=== PATIENT | female | born 1960 | race African-American/Black ===

== ENCOUNTER 2016-06-13 12:05 | Inpatient (IN) | payer OTHER ==
[2016-06-13 12:56] VITALS: BMI 23.1
--- NOTE | 2016-06-13 15:44 | HP ---
COWS - Scale Resting Pulse: 0= [place] 80 or Below Sweatin=Flushed/Facial Moisture Restless Observation: 1= Difficult to Sit Still Pupil Size: 2= Moderately Dilated Bone or Joint Aches: 2= Severe Diffuse Aches Runny Nose/ Eye Tearin= Runny Nose/Eyes GI Upset > 30mins: 2= Nausea/Diarrhea Tremor Observation: 2= Slight Tremor Visible Yawning Observation: 1= 1-2x During Session Anxiety or Irritability: 2=Irritable/Anxious Goose Flesh Skin: 3=Piloerection COWS Score: 19 CIWA Score - CIWA Score Nausea/Vomitin Muscle Tremors: 4-Moderate,w/Arms Extend Anxiety: 4-Mod. Anxious/Guarded Agitation: 4-Moderately Restless Paroxysmal Sweats: 3 Orientation: 0-Oriented Tacttile Disturbances: 0-None Auditory Disturbances: 0-None Visual Disturbances: 0-None Headache: 0-None Present CIWA-Ar Total Score: 18 Admission ROS BHS - HPI Chief Complaint: withdrawal sx. Allergies/Adverse Reactions: Allergies Allergy/AdvReac Type Severity Reaction Status Date / Time sulfamethoxazole Allergy Mild Hives Verified 06/13/16 14:33 [From Bactrim] trimethoprim [From Bactrim] Allergy Mild Hives Verified 06/13/16 14:33 History of Present Illness: 56 y/o woman with a long hx. of heroin & alcohol dependence is admitted for detox.Pt. has been in previous detox & rehab reports 2 yrs. drug free & sober. Exam Limitations: No Limitations - Ebola screening Have you traveled outside of the country in the last 21 days: No Have you had contact with anyone from an Ebola affected area: No Have you been sick,other than usual withdrawal symptoms: No Do you have a fever: No - Review of Systems Constitutional: Diaphoresis EENT: reports: Nose Congestion Respiratory: reports: No Symptoms reported Cardiac: reports: No Symptoms Reported GI: reports: Nausea, Abdominal cramping : reports: No Symptoms Reported Musculoskeletal: reports: Back Pain, Joint Pain, Muscle Pain Integumentary: reports: Sweating Neuro: reports: Tremors Endocrine: reports: No Symptoms Reported Hematology: reports: No Symptoms Reported Psychiatric: reports: No Sypmtoms Reported Other Systems: Reviewed and Negative Patient History - Patient Medical History Hx Anemia: No Hx Asthma: No Hx Chronic Obstructive Pulmonary Disease (COPD): No Hx Cancer: No Hx Cardiac Disorders: No Hx Congestive Heart Failure: No Hx Hypertension: Yes Hx Hypercholesterolemia: No Hx Pacemaker: No HX Cerebrovascular Accident: No Hx Seizures: No Hx Dementia: No Hx Diabetes: Yes (BGM 94 Mg/Dl) Hx Gastrointestinal Disorders: No Hx Liver Disease: No Hx Genitourinary Disorders: No Hx Sexually Transmitted Disorders: No Hx Renal Disease (ESRD): No Hx Thyroid Disease: No Hx Human Immunodeficiency Virus (HIV): No Hx Hepatitis C: No Hx Depression: No Hx Suicide Attempt: No Hx Bipolar Disorder: Yes (ON MED) Hx Schizophrenia: No - Patient Surgical History Past Surgical History: Yes Hx Neurologic Surgery: No Hx Cataract Extraction: No Hx Cardiac Surgery: No Hx Lung Surgery: No Hx Breast Surgery: No Hx Breast Biopsy: No Hx Abdominal Surgery: No Hx Appendectomy: No Hx Cholecystectomy: No Hx Genitourinary Surgery: No Hx Section: Yes (x2) Hx Orthopedic Surgery: No Anesthesia Reaction: No - PPD History Previous Implant?: Yes Documented Results: Positive w/proof Implanted On Prior [facility] Admission?: No Date: 09/12/15 Results: 7mm PPD to be Administered?: No - Reproductive History Patient is a Female of Child Bearing Age (11 -55 yrs old): No Patient : No - Smoking Cessation Smoking history: Current every day smoker Have you smoked in the past 12 months: Yes Aproximately how many cigarettes per day: 15 Cigars Per Day: 0 Hx Chewing Tobacco Use: No Initiated information on smoking cessation: Yes 'Breaking Loose' booklet given: 06/13/16 - Substance & Tx. History Hx Alcohol Use: Yes Hx Substance Use: Yes Substance Use Type: Alcohol, Cocaine, Heroin Hx Substance Use Treatment: Yes (Detox & Rehab) - Substances Abused Heroin Route: Inhalation Frequency: Daily Amount used: 10 bags Age of first use: 24 Date of Last Use: 06/12/16 Cocaine Route: Smoking Frequency: Daily Amount used: $ 100 Age of first use: 19 Date of Last Use: 06/12/16 Marijuana/Hashish Route: Smoking Frequency: 1-2 times per week Amount used: $ 20 Age of first use: 14 Date of Last Use: 06/10/16 PCP Route: Smoking Frequency: 1-3 times last 30 days Amount used: $ 20 Age of first use: 19 Date of Last Use: 06/10/16 Alcohol Route: Oral Frequency: Daily Amount used: 2 to 3 six packs Age of first use: 13 Date of Last Use: 06/13/16 Family Disease History - Family Disease History Family Disease History: Diabetes: Father, Mother, Sister Admission Physical Exam [facility] - Vital Signs Vital Signs: Vital Signs - 24 hr 06/13/16 12:54 Temperature 97.2 F L Pulse Rate 76 Respiratory 20 Rate Blood Pressure 126/96 - Physical General Appearance: Yes: Tremorous, Irritable, Sweating, Anxious HEENTM: Yes: Nasal Congestion, Rhinorrhea Respiratory: Yes: Chest Non-Tender, Lungs Clear, Normal Breath Sounds Neck: Yes: Supple Breast: Yes: Breast Exam Deferred Cardiology: Yes: Regular Rhythm, Regular Rate, S1, S2 Abdominal: Yes: Normal Bowel Sounds, Non Tender, Soft Genitourinary: Yes: Within Normal Limits Musculoskeletal: Yes: Within Normal Limits Extremities: Yes: Tremors Neurological: Yes: Fully Oriented, Alert Integumentary: Yes: Diaphoresis Lymphatic: Yes: Within Normal Limits - Diagnostic (1) Opioid dependence with withdrawal Current Visit: Yes Status: Acute (2) Alcohol dependence with uncomplicated withdrawal Current Visit: Yes Status: Acute (3) HTN (hypertension) Current Visit: Yes Status: Acute Qualifiers: Hypertension type: essential hypertension Qualified Code(s): I10 - Essential (primary) hypertension (4) Cannabis dependence, uncomplicated Current Visit: Yes Status: Acute Cleared for Admission [facility] - Detox or Rehab [facility] Level of Care: Medically Managed Detox Regimen/Protocol: Methadone/Valium [facility] Breath Alcohol Content Breath Alcohol Content: 0 Urine Pregancy Test - Result Urine Test Results: Negative- NO Line Present Urine Drug Screen - Results Drug Screen Negative: No Urine Drug Screen Results: THC-Marijuana, TOM-Cocaine, OPI-Opiates, PCP- Phencyclidine, OXY-Oxycodone
[2016-06-13] MEDS ORDERED: MAGNESIUM CITRATE 300 ML BOTTLE PO PRN (15:52)
[2016-06-13] MEDS ORDERED: ACETAMINOPHEN 325 MG TABLET (FP) PO PRN (15:52)
[2016-06-13] MEDS ORDERED: MAGNESIUM HYDROX 2400MG/30ML ORAL SUSPENSION 30 ML CUP PO PRN (15:52)
[2016-06-13] MEDS ORDERED: METHADONE HCL 10 MG TABLET (FOR DETOX USE ONLY) PO ONE ×2 (15:52→23:00)
[2016-06-13] MEDS ORDERED: LOPERAMIDE HCL 2 MG CAPSULE PO PRN (15:52)
[2016-06-13] MEDS ORDERED: hydrOXYzine PAMOATE 50 MG CAPSULE (FP) PO PRN (15:52)
[2016-06-13] MEDS ORDERED: MENTHOL/PHENOL 1 EACH UD MM PRN (15:52)
[2016-06-13] MEDS ORDERED: P-EPHED 60MG/TRIPROLIDI 2.5MG TABLET PO PRN (15:52)
[2016-06-13] MEDS ORDERED: diazePAM 5 MG TABLET PO PRN (15:52)
[2016-06-13] MEDS ORDERED: diazePAM 5 MG TABLET PO ONE (15:52)
[2016-06-13] MEDS ORDERED: NICOTINE POLACRILEX 2 MG GUM BC PRN (15:52)
[2016-06-13] MEDS ORDERED: guaiFENesin/D-METHORPHAN HB 10 ML UNIT-DOSE CUPS PO PRN (15:52)
[2016-06-13] MEDS ORDERED: IBUPROFEN 400 MG TABLET (FP) PO PRN (15:52)
[2016-06-13] MEDS ORDERED: MAG HYDROX/AL HYDROX/SIMETH 30 ML UNIT-DOSE CUP PO PRN (15:52)
[2016-06-13] MEDS: NICOTINE 21 MG/24 HOURS TOPICAL PATCH TD SCH (16:47)
[2016-06-13] MEDS: THIAMINE HCL 100 MG TABLET (FP) PO SCH (22:19)
[2016-06-13] MEDS: diphenhydrAMINE HCL 50 MG CAPSULE PO PRN (22:19)
[2016-06-13] MEDS: diazePAM 5 MG TABLET PO SCH (22:20)
[2016-06-13] MEDS: amLODIPine BESYLATE 10 MG TABLET (FP) PO SCH (22:57)
[2016-06-14] MEDS: diazePAM 5 MG TABLET PO SCH (05:26)
[2016-06-14] MEDS ORDERED: cloNIDine HCL 0.1 MG TABLET PO ONE (06:15)
[2016-06-14] MEDS ORDERED: METHADONE HCL 10 MG TABLET (FOR DETOX USE ONLY) PO SCH (10:00)
[2016-06-14] MEDS ORDERED: amLODIPine BESYLATE 5 MG TABLET (FP) PO SCH (10:00)
[2016-06-14 10:04] LABS: MCH 29.4 pg (25.7-33.7); MCHC 32.9 g/dl (32.0-36.0); MEAN CELL VOLUME 89.3 fl (80-96); MEAN PLT VOLUME 10.5 fl (7.5-11.1); PLATELET COUNT 250 K/MM3 (134-434); RDW 14.6 % (11.6-15.6); WHITE BLOOD COUNT 6.6 K/mm3 (4.0-10.0)
--- NOTE | 2016-06-14 10:27 | CONSULT ---
[facility] Psychiatric Consult - Data Date of interview: 06/14/16 Admission source: [facility] Identifying data: This is 56 years old female with Bipolar Disorder history , history of psychiatric hospitalizations, intoxicated with: Alcohol, Opioids, PCP, Cocaine and Nicotine Substance Abuse History: - Smoking Cessation. Smoking history: Current every day smoker. Have you smoked in the past 12 months: Yes. Aproximately how many cigarettes per day: 15. Cigars Per Day: 0. Hx Chewing Tobacco Use: No. Initiated information on smoking cessation: Yes. 'Breaking Loose' booklet given : 06/13/16. - Substance & Tx. History. Hx Alcohol Use: Yes. Hx Substance Use : Yes. Substance Use Type: Alcohol, Cocaine, Heroin. Hx Substance Use Treatment: Yes (Detox & Rehab). - Substances Abused. Heroin. Route: Inhalation. Frequency: Daily. Amount used: 10 bags. Age of first use: 24. Date of Last Use: 06/12/16. Cocaine. Route: Smoking. Frequency: Daily. Amount used: $ 100. Age of first use: 19. Date of Last Use: 06/12/16. Marijuana/Hashish. Route: Smoking. Frequency: 1-2 times per week. Amount used : $ 20. Age of first use: 14. Date of Last Use: 06/10/16. PCP. Route: Smoking. Frequency: 1-3 times last 30 days. Amount used: $ 20. Age of first use: 19. Date of Last Use: 06/10/16. Alcohol. Route: Oral. Frequency: Daily. Amount used: 2 to 3 six packs. Age of first use: 13. Date of Last Use : 06/13/16 Medical History: HTN, DM-2,L LBP, Psychiatric History: Patient reports to carry Bipolar disorder with the most recent psychiatric admission on 2014 at [facility] for safety, reports takinmg prior to admission: Seroquel 300mg po bid. Gabapentin 300mg po tid Physical/Sexual Abuse/Trauma History: Denies Additional Comment: Seroquel 300mg po bid. Gabapentin 300mg po tid Mental Status Exam - Mental Status Exam Alert and Oriented to: Person Cognitive Function: Fair Patient Appearance: Unkempt Mood: Sad Affect: Normal Range Patient Behavior: Fatigued Speech Pattern: Appropriate Voice Loudness: Mildly Soft/Quiet Thought Process: Goal Oriented Thought Disorder: Being Controlled Hallucinations: Denies Suicidal Ideation: Denies Homicidal Ideation: Denies Insight/Judgement: Fair Sleep: Difficulty falling asleep Appetite: Weight gain Muscle strength/Tone: Mild Hypotonicity Gait/Station: Shuffling Additional Comments: Seroquel 300mg po bid. Gabapentin 300mg po tid Psychiatric Findings - Problem List ([place] 1, 2,3) (1) Alcohol dependence with uncomplicated withdrawal Current Visit: Yes Status: Acute (2) Cannabis dependence, uncomplicated Current Visit: Yes Status: Acute (3) Opioid dependence with withdrawal Current Visit: Yes Status: Acute (4) Cocaine dependence Current Visit: No Status: Acute (5) Alcohol dependence Current Visit: No Status: Chronic (6) Bipolar II disorder Current Visit: No Status: Chronic (7) Cocaine abuse Current Visit: No Status: Chronic (8) Nicotine dependence Current Visit: No Status: Chronic Qualifiers: Nicotine product type: cigarettes Substance use status: uncomplicated Qualified Code(s): F17.210 - Nicotine dependence, cigarettes, uncomplicated (9) PCP (phencyclidine) abuse Current Visit: No Status: Chronic (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 Gabapentin 300mg po tid
[2016-06-14 10:28] LABS: ALBUMIN 3.6 g/dl (3.4-5.0); BILIRUBIN,TOTAL 0.2 mg/dL (0.2-1.0); CALCIUM 9.3 mg/dL (8.5-10.1); COCKROFT - GAULT 59.7975; CREATININE 1.1 mg/dL (0.55-1.02); TOT PROT 6.7 g/dl (6.4-8.2)
[2016-06-14] MEDS: PRENATAL VITAMINS W/ FOLIC ACID TABLET (FP) PO SCH (10:51)
[2016-06-14] MEDS: amLODIPine BESYLATE 10 MG TABLET (FP) PO SCH (10:51)
[2016-06-14 10:52] LABS: HIV 1 & 2 AB NEGATIVE; HIV 1 AGp24 NEGATIVE
[2016-06-14] MEDS: NICOTINE 21 MG/24 HOURS TOPICAL PATCH TD SCH (10:52)
--- NOTE | 2016-06-14 11:11 | EKG ---
Test Reason : Blood Pressure : / mmHG Vent. Rate : 064 BPM Atrial Rate : 064 BPM P-R Int : 160 ms QRS Dur : 082 ms QT Int : 400 ms P-R-T Axes : 062 -03 002 degrees QTc Int : 412 ms NORMAL SINUS RHYTHM NONSPECIFIC T WAVE ABNORMALITY ABNORMAL ECG NO PREVIOUS ECGS AVAILABLE Confirmed by SAUL NAYLOR MD ([id number]) on 06/14/2016 11:11:18 AM Referred By: Keith Rodgers Confirmed By:SUAL NAYLOR MD
--- NOTE | 2016-06-14 11:41 | PN ---
[facility] CIWA - CIWA Score Nausea/Vomitin-No Nausea/No Vomiting Muscle Tremors: 4-Moderate,w/Arms Extend Anxiety: 3 Agitation: 4-Moderately Restless Paroxysmal Sweats: 3 Orientation: 0-Oriented Tacttile Disturbances: 0-None Auditory Disturbances: 0-None Visual Disturbances: 0-None Headache: 0-None Present CIWA-Ar Total Score: 14 BHS COWS - Scale Resting Pulse: 0= SC 80 or Below Sweatin=Flushed/Facial Moisture Restless Observation: 1= Difficult to Sit Still Pupil Size: 0= Normal to Room Light Bone or Joint Aches: 2= Severe Diffuse Aches Runny Nose/ Eye Tearin= Nasal Congestion GI Upset > 30mins: 1= Stomach Cramp Tremor Observation of Outstretched Hands: 2= Slight Tremor Visible Yawning Observation: 2= >3x During Session Anxiety or Irritability: 2=Irritable/Anxious Goose Flesh Skin: 3=Piloerection COWS Score: 16 S Progress Note (SOAP) Subjective: I want librium instead of valium i still feel sick and shaky sweats interrupted sleep agitation anxiety headache body aches Objective: 06/14/16 11:39 Vital Signs Temperature 97.5 F L 06/14/16 09:41 Pulse Rate 62 06/14/16 09:41 Respiratory Rate 16 06/14/16 09:41 Blood Pressure 125/83 06/14/16 09:41 O2 Sat by Pulse Oximetry (%) Laboratory Tests 06/13/16 06/13/16 06/14/16 14:45 19:00 07:00 WBC RBC Hgb Hct MCV MCHC RDW Plt Count MPV Sodium Potassium Chloride Carbon Dioxide Anion Gap BUN Creatinine Creat Clearance w eGFR POC Glucometer 94 Random Glucose Calcium Total Bilirubin AST ALT Alkaline Phosphatase Total Protein Albumin Urine Color Yellow Urine Appearance Clear Urine pH 5.0 Ur Specific [place] 1.021 Urine Protein Negative Urine Glucose (UA) Negative Urine Ketones Negative Urine Blood Negative Urine Nitrite Negative Urine Bilirubin Negative Urine Urobilinogen Negative Ur Leukocyte Esterase Negative RPR Titer HIV 1&2 Antibody Screen Negative HIV P24 Antigen Negative 06/14/16 06/14/16 06/14/16 07:00 07:00 07:00 WBC 6.6 RBC 5.06 Hgb 14.9 D Hct 45.2 MCV 89.3 MCHC 32.9 RDW 14.6 Plt Count 250 MPV 10.5 Sodium 141 Potassium 3.6 Chloride 107 Carbon Dioxide 26 Anion Gap 8 BUN 12 D Creatinine 1.1 H Creat Clearance w eGFR 51.20 POC Glucometer Random Glucose 91 Calcium 9.3 Total Bilirubin 0.2 D AST 11 L D ALT 22 D Alkaline Phosphatase 140 H Total Protein 6.7 Albumin 3.6 Urine Color Urine Appearance Urine pH Ur Specific [place] Urine Protein Urine Glucose (UA) Urine Ketones Urine Blood Urine Nitrite Urine Bilirubin Urine Urobilinogen Ur Leukocyte Esterase RPR Titer Nonreactive HIV 1&2 Antibody Screen HIV P24 Antigen awake/alert ambulating no acute distress Assessment: 06/14/16 11:39 withdrawal sx Plan: continue detox increase fluids valium switched to librium as per pt request ensure plus bid labs pending
--- NOTE | 2016-06-14 11:43 | PN ---
BHS Progress Note Note: pt states she is no longer a diabetic. no longer taking medication.
[2016-06-14] MEDS: chlordiazePOXIDE HCL 25 MG CAPSULE PO SCH ×3 (12:09→22:09)
[2016-06-14] MEDS: CYCLOBENZAPRINE HCL 10 MG TABLET (FP) PO PRN ×2 (12:09→22:09)
[2016-06-14] MEDS: GABAPENTIN 300 MG CAPSULE (FP) PO SCH ×2 (14:10→22:09)
[2016-06-14] MEDS: QUEtiapine FUMARATE 300 MG TABLET PO SCH ×2 (14:10→22:09)
[2016-06-14] MEDS: THIAMINE HCL 100 MG TABLET (FP) PO SCH (22:09)
[2016-06-15] MEDS: GABAPENTIN 300 MG CAPSULE (FP) PO SCH ×3 (06:22→22:56)
[2016-06-15] MEDS: chlordiazePOXIDE HCL 25 MG CAPSULE PO SCH ×2 (06:22→10:40)
[2016-06-15] MEDS ORDERED: diazePAM 5 MG TABLET PO SCH (10:00)
[2016-06-15] MEDS: METHADONE HCL 5 MG TABLET (FOR DETOX USE ONLY) PO SCH (10:40)
[2016-06-15] MEDS: PRENATAL VITAMINS W/ FOLIC ACID TABLET (FP) PO SCH (10:40)
[2016-06-15] MEDS: QUEtiapine FUMARATE 300 MG TABLET PO SCH ×2 (10:40→22:56)
[2016-06-15] MEDS: amLODIPine BESYLATE 10 MG TABLET (FP) PO SCH (10:40)
[2016-06-15] MEDS: NICOTINE 21 MG/24 HOURS TOPICAL PATCH TD SCH (10:40)
[2016-06-15] MEDS ORDERED: LIDOCAINE 5% TOPICAL PATCH TP ONE (11:04)
--- NOTE | 2016-06-15 11:04 | PN ---
S CIWA - CIWA Score Nausea/Vomitin Muscle Tremors: 2 Anxiety: 3 Agitation: 2 Paroxysmal Sweats: 3 Orientation: 0-Oriented Tacttile Disturbances: 2-Mild Itch/Numbness/Burn Auditory Disturbances: 0-None Visual Disturbances: 0-None Headache: 0-None Present CIWA-Ar Total Score: 14 S COWS - Scale Resting Pulse: 0= SC 80 or Below Sweatin=Flushed/Facial Moisture Restless Observation: 1= Difficult to Sit Still Pupil Size: 1= Pupils >than Normal Bone or Joint Aches: 2= Severe Diffuse Aches Runny Nose/ Eye Tearin= Nasal Congestion GI Upset > 30mins: 1= Stomach Cramp Tremor Observation of Outstretched Hands: 1= Tremor [place], Not Seen Yawning Observation: 0= None Anxiety or Irritability: 2=Irritable/Anxious Goose Flesh Skin: 0=Smooth Skin COWS Score: 11 S Progress Note (SOAP) Subjective: interrupted sleep, sweats, shakes, lbp Objective: 06/15/16 11:02 Vital Signs Temperature 97.1 F L 06/15/16 09:55 Pulse Rate 58 L 06/15/16 09:55 Respiratory Rate 16 06/15/16 09:55 Blood Pressure 116/69 06/15/16 09:55 O2 Sat by Pulse Oximetry (%) Laboratory Tests 06/13/16 06/13/16 06/14/16 14:45 19:00 07:00 WBC RBC Hgb Hct MCV MCHC RDW Plt Count MPV Sodium Potassium Chloride Carbon Dioxide Anion Gap BUN Creatinine Creat Clearance w eGFR POC Glucometer 94 Random Glucose Calcium Total Bilirubin AST ALT Alkaline Phosphatase Total Protein Albumin Urine Color Yellow Urine Appearance Clear Urine pH 5.0 Ur Specific [place] 1.021 Urine Protein Negative Urine Glucose (UA) Negative Urine Ketones Negative Urine Blood Negative Urine Nitrite Negative Urine Bilirubin Negative Urine Urobilinogen Negative Ur Leukocyte Esterase Negative RPR Titer HIV 1&2 Antibody Screen Negative HIV P24 Antigen Negative 06/14/16 06/14/16 06/14/16 07:00 07:00 07:00 WBC 6.6 RBC 5.06 Hgb 14.9 D Hct 45.2 MCV 89.3 MCHC 32.9 RDW 14.6 Plt Count 250 MPV 10.5 Sodium 141 Potassium 3.6 Chloride 107 Carbon Dioxide 26 Anion Gap 8 BUN 12 D Creatinine 1.1 H Creat Clearance w eGFR 51.20 POC Glucometer Random Glucose 91 Calcium 9.3 Total Bilirubin 0.2 D AST 11 L D ALT 22 D Alkaline Phosphatase 140 H Total Protein 6.7 Albumin 3.6 Urine Color Urine Appearance Urine pH Ur Specific [place] Urine Protein Urine Glucose (UA) Urine Ketones Urine Blood Urine Nitrite Urine Bilirubin Urine Urobilinogen Ur Leukocyte Esterase RPR Titer Nonreactive HIV 1&2 Antibody Screen HIV P24 Antigen pt aox3 in nad ambulating Assessment: 06/15/16 11:02 withdrawal sx's lbp Plan: cont. detox increase fluids lidocaine patch clonidine 0.1mg bid x 2 d
[2016-06-15] MEDS ORDERED: cloNIDine HCL 0.1 MG TABLET PO SCH (22:00)
[2016-06-15] MEDS: CYCLOBENZAPRINE HCL 10 MG TABLET (FP) PO PRN (22:56)
[2016-06-15] MEDS: chlordiazePOXIDE HCL 25 MG CAPSULE PO PRN (22:56)
[2016-06-15] MEDS: THIAMINE HCL 100 MG TABLET (FP) PO SCH (22:56)
[2016-06-16] MEDS: diphenhydrAMINE HCL 50 MG CAPSULE PO PRN (02:18)
[2016-06-16] MEDS: chlordiazePOXIDE HCL 25 MG CAPSULE PO PRN (02:18)
[2016-06-16] MEDS: chlordiazePOXIDE 5 MG CAPSULE PO SCH ×2 (05:37→10:36)
[2016-06-16] MEDS: GABAPENTIN 300 MG CAPSULE (FP) PO SCH ×3 (05:37→22:23)
[2016-06-16] MEDS: QUEtiapine FUMARATE 300 MG TABLET PO SCH ×2 (10:36→22:23)
[2016-06-16] MEDS: amLODIPine BESYLATE 10 MG TABLET (FP) PO SCH (10:36)
[2016-06-16] MEDS: METHADONE HCL 5 MG TABLET (FOR DETOX USE ONLY) PO SCH (10:36)
[2016-06-16] MEDS: PRENATAL VITAMINS W/ FOLIC ACID TABLET (FP) PO SCH (10:36)
[2016-06-16] MEDS: LIDOCAINE 5% TOPICAL PATCH TP SCH (10:37)
[2016-06-16] MEDS: NICOTINE 21 MG/24 HOURS TOPICAL PATCH TD SCH (10:38)
--- NOTE | 2016-06-16 11:27 | PN ---
BHS Progress Note (SOAP) Subjective: sweats irritable agitation interrupted sleep Objective: 06/16/16 11:26 Vital Signs Temperature 98.2 F 06/16/16 10:43 Pulse Rate 89 06/16/16 10:43 Respiratory Rate 20 06/16/16 10:43 Blood Pressure 146/102 06/16/16 10:43 O2 Sat by Pulse Oximetry (%) awake/alert ambulating no acute distress Assessment: 06/16/16 11:27 withdrawal sx Plan: continue detox increase fluids
[2016-06-16] MEDS: CYCLOBENZAPRINE HCL 10 MG TABLET (FP) PO PRN ×2 (14:02→22:23)
[2016-06-16] MEDS ORDERED: ZOLPIDEM TARTRATE 10 MG TABLET (PARK CARE ONLY) PO PRN (22:00)
[2016-06-16] MEDS: ZOLPIDEM TARTRATE 10 MG TABLET (PARK CARE ONLY) PO PRN (22:23)
[2016-06-16] MEDS: THIAMINE HCL 100 MG TABLET (FP) PO SCH (22:23)
[2016-06-17] MEDS: chlordiazePOXIDE HCL 10 MG CAPSULE PO SCH ×2 (05:08→10:38)
[2016-06-17] MEDS: GABAPENTIN 300 MG CAPSULE (FP) PO SCH ×3 (05:08→22:20)
[2016-06-17] MEDS: CYCLOBENZAPRINE HCL 10 MG TABLET (FP) PO PRN ×3 (05:09→22:20)
[2016-06-17] MEDS ORDERED: METHADONE HCL 10 MG TABLET (FOR DETOX USE ONLY) PO SCH (10:00)
[2016-06-17] MEDS ORDERED: diazePAM 5 MG TABLET PO SCH (10:00)
[2016-06-17] MEDS: PRENATAL VITAMINS W/ FOLIC ACID TABLET (FP) PO SCH (10:38)
[2016-06-17] MEDS: QUEtiapine FUMARATE 300 MG TABLET PO SCH ×2 (10:38→22:20)
[2016-06-17] MEDS: amLODIPine BESYLATE 10 MG TABLET (FP) PO SCH (10:38)
[2016-06-17] MEDS: NICOTINE 21 MG/24 HOURS TOPICAL PATCH TD SCH (10:39)
[2016-06-17] MEDS: LIDOCAINE 5% TOPICAL PATCH TP SCH (10:39)
--- NOTE | 2016-06-17 12:36 | PN ---
BHS Progress Note (SOAP) Subjective: interrupted sleep, sweats, lbp Objective: 06/17/16 12:35 Vital Signs Temperature 98.1 F 06/17/16 10:00 Pulse Rate 100 H 06/17/16 10:00 Respiratory Rate 16 06/17/16 10:00 Blood Pressure 140/100 06/17/16 10:00 O2 Sat by Pulse Oximetry (%) Laboratory Tests 06/13/16 06/13/16 06/14/16 14:45 19:00 07:00 WBC RBC Hgb Hct MCV MCHC RDW Plt Count MPV Sodium Potassium Chloride Carbon Dioxide Anion Gap BUN Creatinine Creat Clearance w eGFR POC Glucometer 94 Random Glucose Calcium Total Bilirubin AST ALT Alkaline Phosphatase Total Protein Albumin Urine Color Yellow Urine Appearance Clear Urine pH 5.0 Ur Specific [place] 1.021 Urine Protein Negative Urine Glucose (UA) Negative Urine Ketones Negative Urine Blood Negative Urine Nitrite Negative Urine Bilirubin Negative Urine Urobilinogen Negative Ur Leukocyte Esterase Negative RPR Titer HIV 1&2 Antibody Screen Negative HIV P24 Antigen Negative 06/14/16 06/14/16 06/14/16 07:00 07:00 07:00 WBC 6.6 RBC 5.06 Hgb 14.9 D Hct 45.2 MCV 89.3 MCHC 32.9 RDW 14.6 Plt Count 250 MPV 10.5 Sodium 141 Potassium 3.6 Chloride 107 Carbon Dioxide 26 Anion Gap 8 BUN 12 D Creatinine 1.1 H Creat Clearance w eGFR 51.20 POC Glucometer Random Glucose 91 Calcium 9.3 Total Bilirubin 0.2 D AST 11 L D ALT 22 D Alkaline Phosphatase 140 H Total Protein 6.7 Albumin 3.6 Urine Color Urine Appearance Urine pH Ur Specific [place] Urine Protein Urine Glucose (UA) Urine Ketones Urine Blood Urine Nitrite Urine Bilirubin Urine Urobilinogen Ur Leukocyte Esterase RPR Titer Nonreactive HIV 1&2 Antibody Screen HIV P24 Antigen pt aox3 in nad ambulatig Assessment: 06/17/16 12:36 withdrawal sx;s Plan: cont. detox increase fluids d/c in am
[2016-06-17] MEDS: THIAMINE HCL 100 MG TABLET (FP) PO SCH (22:20)
[2016-06-17] MEDS: ZOLPIDEM TARTRATE 10 MG TABLET (PARK CARE ONLY) PO PRN (22:20)
[2016-06-18] MEDS ORDERED: METHADONE HCL 5 MG TABLET (FOR DETOX USE ONLY) PO SCH (06:00)
[2016-06-18] MEDS: GABAPENTIN 300 MG CAPSULE (FP) PO SCH (06:26)
--- NOTE | 2016-06-18 08:34 | DS ---
[facility] Detox Discharge Summary Admission Date: 06/13/16 Discharge Date: 06/18/16 - History Present History: Alcohol Dependence, Cannabis Dependence, Cocaine Dependence, Opioid Dependence, Pcp Dependence - Physical Exam Results Vital Signs: Vital Signs Temperature 98.1 F 06/18/16 06:00 Pulse Rate 82 06/18/16 06:00 Respiratory Rate 18 06/18/16 06:00 Blood Pressure 133/99 06/18/16 06:00 O2 Sat by Pulse Oximetry (%) - Treatment Hospital Course: Detox Protocol Followed, Detoxed Safely, Responded well, Discharged Condition Good, Rehab Referral Accepted - Medication Discharge Medications: Ambulatory Orders Amlodipine Besylate [Norvasc -] 10 mg PO DAILY 09/10/15 Gabapentin [Neurontin -] 300 mg PO Q8H 09/10/15 Quetiapine Fumarate [Seroquel -] 300 mg PO BID 09/10/15 Zolpidem Tartrate [Ambien] 10 mg PO HS #14 tablet MDD 10 06/16/16 Gabapentin [Neurontin -] 300 mg PO TID #90 cap 06/17/16 Quetiapine Fumarate [Seroquel -] 300 mg PO BID #60 tab 06/17/16 - Diagnosis (1) Alcohol dependence with uncomplicated withdrawal Current Visit: Yes Status: Chronic (2) Cannabis dependence, uncomplicated Current Visit: Yes Status: Chronic (3) HTN (hypertension) Current Visit: Yes Status: Chronic Qualifiers: Hypertension type: essential hypertension Qualified Code(s): I10 - Essential (primary) hypertension (4) Opioid dependence with withdrawal Current Visit: Yes Status: Chronic (5) Cocaine dependence Current Visit: Yes Status: Chronic Qualifiers: Substance use status: uncomplicated Qualified Code(s): F14.20 - Cocaine dependence, uncomplicated (6) Type II diabetes mellitus Current Visit: Yes Status: Chronic Qualifiers: Diabetes mellitus complication status: without complication (7) Acute bilateral low back pain Current Visit: No Status: Chronic Qualifiers: Sciatica presence: without sciatica Qualified Code(s): M54.5 - Low back pain (8) Bipolar II disorder Current Visit: Yes Status: Chronic (9) Cocaine abuse Current Visit: Yes Status: Chronic (10) HX BIPOLAR Current Visit: No Status: Chronic (11) Nicotine dependence Current Visit: Yes Status: Chronic Qualifiers: Nicotine product type: cigarettes Substance use status: uncomplicated Qualified Code(s): F17.210 - Nicotine dependence, cigarettes, uncomplicated (12) PCP (phencyclidine) abuse Current Visit: Yes Status: Chronic (13) STREET METHADONE ABUSE Current Visit: Yes Status: Chronic
[2016-06-18 11:00] VITALS: BP 116/60; PULSE 98; TEMP 98.2
== END 2016-06-18 09:52 | disposition home or self-care (01) | DRG 773 ==
LOC: YASAS 12:05 → Y6N 15:15
PROVIDERS: ADMIT Internal Medicine; ATTEND Internal Medicine Addiction Medicine
PROC: HZ2ZZZZ Detoxification Services for Substance Abuse Treatment (ICD-10-PCS; principal; 2016-06-18)
DX: F11.23 Opioid dependence with withdrawal (principal); F10.230 Alcohol dependence with withdrawal, uncomplicated; F14.20 Cocaine dependence, uncomplicated; F12.20 Cannabis dependence, uncomplicated; F17.210 Nicotine dependence, cigarettes, uncomplicated; F16.10 Hallucinogen abuse, uncomplicated; E11.9 Type 2 diabetes mellitus without complications; M54.5 Low back pain; F31.81 Bipolar II disorder; Z59.0 Homelessness
CPT/HCPCS: 36415; 80053; 81003; 85027; 86593; 87389; 93005; 93010

== ENCOUNTER 2018-03-17 10:49 | Inpatient (IN) | payer OTHER ==
[2018-03-17 11:47] VITALS: BMI 24.3
--- NOTE | 2018-03-17 13:42 | HP ---
COWS - Scale Resting Pulse: 0= [place] 80 or Below Sweatin=Flushed/Facial Moisture Restless Observation: 1= Difficult to Sit Still Pupil Size: 0= Normal to Room Light Bone or Joint Aches: 2= Severe Diffuse Aches Runny Nose/ Eye Tearin= Runny Nose/Eyes GI Upset > 30mins: 2= Nausea/Diarrhea Tremor Observation: 2= Slight Tremor Visible Yawning Observation: 2= >3x During Session Anxiety or Irritability: 2=Irritable/Anxious Goose Flesh Skin: 3=Piloerection COWS Score: 18 CIWA Score Nausea/Vomitin-Mild Nausea/No Vomiting Muscle Tremors: 4-Moderate,w/Arms Extend Anxiety: 4-Mod. Anxious/Guarded Agitation: 4-Moderately Restless Paroxysmal Sweats: 3 Orientation: 0-Oriented Tacttile Disturbances: 0-None Auditory Disturbances: 0-None Visual Disturbances: 0-None Headache: 0-None Present CIWA-Ar Total Score: 16 - Admission Criteria OASAS Guidelines: Admission for Medically Managed Detox: Requires at least one of the followin. CIWA greater than 12 2. Seizures within the past 24 hours 3. Delirium tremens within the past 24 hours 4. Hallucinations within the past 24 hours 5. Acute intervention needed for co occurring medical disorder 6. Acute intervention needed for co occurring psychiatric disorder 7. Severe withdrawal that cannot be handled at a lower level of care (continued vomiting, continued diarrhea, abnormal vital signs) requiring intravenous medication and/or fluids 8. Admission ROS S - HPI Chief Complaint: I need to stop drinking and doing drugs. Allergies/Adverse Reactions: Allergies Allergy/AdvReac Type Severity Reaction Status Date / Time sulfamethoxazole Allergy Mild Hives Verified 03/17/18 13:27 [From Bactrim] trimethoprim [From Bactrim] Allergy Mild Hives Verified 03/17/18 13:27 History of Present Illness: pt is a 57yr old female with a history of alcohol and heroin dependence seeking detox for treatment. Exam Limitations: No Limitations - Ebola screening Have you traveled outside of the country in the last 21 days: No Have you had contact with anyone from an Ebola affected area: No Have you been sick,other than usual withdrawal symptoms: No Do you have a fever: No - Review of Systems Constitutional: No Symptoms Reported, Chills, Diaphoresis, Night Sweats, Changes in sleep EENT: reports: Blurred Vision, Tearing, Nose Congestion Respiratory: reports: No Symptoms reported Cardiac: reports: Lightheadedness, Syncope GI: reports: Constipated, Nausea, Poor Appetite, Poor Fluid Intake : reports: No Symptoms Reported Musculoskeletal: reports: Back Pain Integumentary: reports: Erythema, Flushing Neuro: reports: Headache, Tingling, Tremors Endocrine: reports: Excessive Sweating, Flushing, Intolerance to Cold, Intolerance to Heat Hematology: reports: No Symptoms Reported Psychiatric: reports: Judgement Intact, Mood/Affect Appropiate, Orientated x3, Agitated, Anxious Other Systems: Reviewed and Negative Patient History - Patient Medical History Hx Anemia: No Hx Asthma: No Hx Chronic Obstructive Pulmonary Disease (COPD): No Hx Cancer: No Hx Cardiac Disorders: No Hx Congestive Heart Failure: No Hx Hypertension: Yes (non compliant with meds.) Hx Hypercholesterolemia: No Hx Pacemaker: No HX Cerebrovascular Accident: No Hx Seizures: No Hx Dementia: No Hx Diabetes: Yes (Hx of Type II not on meds.) Hx Gastrointestinal Disorders: No Hx Liver Disease: No Hx Genitourinary Disorders: No Hx Sexually Transmitted Disorders: No Hx Renal Disease (ESRD): No Hx Thyroid Disease: No Hx Human Immunodeficiency Virus (HIV): No Hx Hepatitis C: No Hx Depression: Yes Hx Suicide Attempt: No Hx Bipolar Disorder: Yes (ON MED) Hx Schizophrenia: No - Patient Surgical History Past Surgical History: Yes Hx Neurologic Surgery: No Hx Cataract Extraction: No Hx Cardiac Surgery: No Hx Lung Surgery: No Hx Breast Surgery: No Hx Breast Biopsy: No Hx Abdominal Surgery: No Hx Appendectomy: No Hx Cholecystectomy: No Hx Genitourinary Surgery: No Hx Section: Yes (x2) Hx Orthopedic Surgery: No Anesthesia Reaction: No - PPD History Previous Implant?: Yes Documented Results: Negative w/o proof Implanted On Prior R Admission?: Yes Date: 09/12/15 Results: 7mm PPD to be Administered?: Yes - Reproductive History Last Menstrual Period: 09/02/08 Patient : No - Smoking Cessation Smoking history: Current every day smoker Have you smoked in the past 12 months: Yes Aproximately how many cigarettes per day: 10 Cigars Per Day: 0 Hx Chewing Tobacco Use: No Initiated information on smoking cessation: Yes 'Breaking Loose' booklet given: 03/17/18 - Substance & Tx. History Hx Alcohol Use: Yes Hx Substance Use: Yes Substance Use Type: Alcohol, Cocaine, Heroin, Opiates, Tranquilizers Hx Substance Use Treatment: Yes (last detox [facility] 6months ago) - Substances Abused Heroin Route: Inhalation Frequency: Daily Amount used: 10 bags Age of first use: 29 Date of Last Use: 03/17/18 Alcohol Route: Oral Frequency: Daily Amount used: 1 pint dayana Age of first use: 12 Date of Last Use: 03/16/18 PCP Route: Smoking Frequency: 1-3 times last 30 days Amount used: 1 bag Age of first use: 19 Date of Last Use: 03/10/18 Crack Route: Smoking Frequency: Daily Amount used: $100 Age of first use: 19 Date of Last Use: 03/17/18 Marijuana/Hashish Route: Smoking Frequency: 1-3 times last 30 days Amount used: 1 joint Age of first use: 13 Date of Last Use: 03/15/18 Family Disease History - Family Disease History Family Disease History: Diabetes: Father, Mother, Sister Admission Physical Exam [facility] - Vital Signs Vital Signs: Vital Signs - 24 hr 03/17/18 11:44 Temperature 98.2 F Pulse Rate 75 Respiratory 18 Rate Blood Pressure 164/111 H - Physical General Appearance: Yes: Appropriately Dressed, Moderate Distress, Irritable, Sweating, Anxious HEENTM: Yes: Hearing grossly Normal, Normal ENT Inspection, Normocephalic, Normal Voice Respiratory: Yes: Lungs Clear, Normal Breath Sounds, No Respiratory Distress Neck: Yes: No masses,lesions,Nodules Breast: Yes: Within Normal Limits Cardiology: Yes: Regular Rhythm, Regular Rate, S1, S2 Abdominal: Yes: Normal Bowel Sounds, Non Tender, Soft Genitourinary: Yes: Within Normal Limits Back: Yes: Normal Inspection Musculoskeletal: Yes: full range of Motion, Back pain Extremities: Yes: Normal Capillary Refill, Normal Inspection, Non-Tender, Tremors Neurological: Yes: Fully Oriented, Alert, Normal Response Integumentary: Yes: Normal Color, Diaphoresis Lymphatic: Yes: Within Normal Limits - Diagnostic (1) Acute bilateral low back pain Current Visit: No Status: Chronic Qualifiers: (2) Alcohol dependence with uncomplicated withdrawal Current Visit: Yes Status: Chronic (3) Bipolar II disorder Current Visit: No Status: Chronic (4) Cannabis dependence, uncomplicated Current Visit: Yes Status: Chronic (5) Cocaine dependence Current Visit: Yes Status: Chronic Qualifiers: Substance use status: uncomplicated Qualified Code(s): F14.20 - Cocaine dependence, uncomplicated (6) HTN (hypertension) Current Visit: Yes Status: Chronic Qualifiers: Hypertension type: essential hypertension Qualified Code(s): I10 - Essential (primary) hypertension (7) Nicotine dependence Current Visit: Yes Status: Chronic Qualifiers: Nicotine product type: cigarettes Substance use status: uncomplicated Qualified Code(s): F17.210 - Nicotine dependence, cigarettes, uncomplicated (8) Opioid dependence with withdrawal Current Visit: Yes Status: Chronic (9) PCP (phencyclidine) abuse Current Visit: Yes Status: Chronic (10) Type II diabetes mellitus Current Visit: No Status: Chronic Cleared for Admission [facility] - Detox or Rehab [facility] Level of Care: Medically Managed Detox Regimen/Protocol: Methadone/Librium [facility] Breath Alcohol Content Breath Alcohol Content: 0.008 Urine Pregancy Test - Result Urine Test Results: Negative- NO Line Present Urine Drug Screen - Results Drug Screen Negative: Yes Urine Drug Screen Results: THC-Marijuana, TOM-Cocaine, OPI-Opiates, FEN-Fentanyl
[2018-03-17] MEDS ORDERED: MAGNESIUM CITRATE 300 ML BOTTLE PO PRN (13:46)
[2018-03-17] MEDS ORDERED: LOPERAMIDE HCL 2 MG CAPSULE PO PRN (13:46)
[2018-03-17] MEDS ORDERED: guaiFENesin/D-METHORPHAN HB 10 ML UNIT-DOSE CUPS PO PRN (13:46)
[2018-03-17] MEDS ORDERED: MAGNESIUM HYDROX 2400MG/30ML ORAL SUSPENSION 30 ML CUP PO PRN (13:46)
[2018-03-17] MEDS ORDERED: MENTHOL/PHENOL 1 EACH UD MM PRN (13:46)
[2018-03-17] MEDS ORDERED: chlordiazePOXIDE HCL 25 MG CAPSULE PO PRN (13:46)
[2018-03-17] MEDS ORDERED: ACETAMINOPHEN 325 MG TABLET (FP) PO PRN (13:46)
[2018-03-17] MEDS ORDERED: MAG HYDROX/AL HYDROX/SIMETH 30 ML UNIT-DOSE CUP PO PRN (13:46)
[2018-03-17] MEDS ORDERED: hydrOXYzine PAMOATE 50 MG CAPSULE (FP) PO PRN (13:46)
[2018-03-17] MEDS ORDERED: P-EPHED 60MG/TRIPROLIDI 2.5MG TABLET PO PRN (13:46)
[2018-03-17] MEDS ORDERED: NICOTINE POLACRILEX 4 MG GUM BUC PRN (13:46)
[2018-03-17] MEDS ORDERED: chlordiazePOXIDE HCL 25 MG CAPSULE PO ONE (14:00)
[2018-03-17] MEDS ORDERED: METHADONE HCL 10 MG TABLET (FOR DETOX USE ONLY) PO ONE ×2 (14:00→23:00)
[2018-03-17] MEDS: HYDROCHLOROTHIAZIDE 25 MG TABLET (FP) PO SCH (14:30)
[2018-03-17] MEDS: amLODIPine BESYLATE 10 MG TABLET (FP) PO SCH (14:30)
[2018-03-17] MEDS ORDERED: cloNIDine HCL 0.1 MG TABLET PO ONE (14:33)
[2018-03-17] MEDS: chlordiazePOXIDE HCL 25 MG CAPSULE PO SCH ×2 (17:52→23:17)
[2018-03-17] MEDS ORDERED: MELATONIN 5 MG TABLETS PO PRN (22:00)
[2018-03-17] MEDS: THIAMINE HCL 100 MG TABLET (FP) PO SCH (23:17)
[2018-03-18] MEDS: chlordiazePOXIDE HCL 25 MG CAPSULE PO SCH ×4 (05:21→22:17)
[2018-03-18] MEDS ORDERED: METHADONE HCL 10 MG TABLET (FOR DETOX USE ONLY) PO SCH (10:00)
[2018-03-18] MEDS: PRENATAL VITAMINS W/ FOLIC ACID TABLET (FP) PO SCH (10:18)
[2018-03-18] MEDS: amLODIPine BESYLATE 10 MG TABLET (FP) PO SCH (10:18)
[2018-03-18] MEDS: HYDROCHLOROTHIAZIDE 25 MG TABLET (FP) PO SCH (10:18)
[2018-03-18] MEDS: NICOTINE 21 MG/24 HOURS TOPICAL PATCH TD SCH (10:19)
[2018-03-18 11:06] LABS: HEMATOCRIT 42.4 % (32.4-45.2); HEMOGLOBIN 14.3 GM/dL (10.7-15.3); MCH 30.4 pg (25.7-33.7); MCHC 33.7 g/dl (32.0-36.0); MEAN PLT VOLUME 10.5 fl (7.5-11.1); PLATELET COUNT 241 K/MM3 (134-434); RBC 4.71 M/mm3 (3.60-5.2); RDW 14.9 % (11.6-15.6); WHITE BLOOD COUNT 7.7 K/mm3 (4.0-10.0)
[2018-03-18 11:23] LABS: ALK PHOS 148 U/L (45-117); ANION GAP 2 MMOL/L (8-16); BILIRUBIN,TOTAL 0.3 mg/dL (0.2-1); BLOOD UREA NITROGEN 16 mg/dL (7-18); CALCIUM 9.2 mg/dL (8.5-10.1); CHLORIDE 105 mmol/L (98-107); CO2 31 mmol/L (21-32); CREATININE 1.2 mg/dL (0.55-1.3); GLUCOSE,RANDOM 81 mg/dL (74-106); POTASSIUM 3.9 mmol/L (3.5-5.1); SGOT/AST 19 U/L (15-37); SGPT/ALT 27 U/L (13-61); SODIUM 138 mmol/L (136-145); TOT PROT 7.7 g/dl (6.4-8.2)
--- NOTE | 2018-03-18 12:48 | CONSULT ---
[facility] Psychiatric Consult - Data Date of interview: 03/18/18 Admission source: [facility] Identifying data: Readmission to [facility] for this 57 y/o AA female, self- referred for detoxification treatment (alcohol, heroin, cocaine/crack, PCP, cannabis). Examined on . Patient is single, a mother of five, domiciled, unemployed and reportedly deprived of income. Substance Abuse History: Discussed with the patient. Details in current [facility] report as follows : Smoking history: Current every day smoker. Have you smoked in the past 12 months: Yes. Aproximately how many cigarettes per day: 10. Cigars Per Day: 0. Hx Chewing Tobacco Use: No. Initiated information on smoking cessation: Yes. 'Breaking Loose' booklet given: 03/17/18. - Substance & Tx. History. Hx Alcohol Use: Yes. Hx Substance Use: Yes. Substance Use Type : Alcohol, Cocaine, Heroin, Opiates, Tranquilizers. Hx Substance Use Treatment : Yes (last detox [facility] 6months ago). - Substances Abused. Heroin. Route: Inhalation. Frequency: Daily. Amount used: 10 bags. Age of first use: 29. Date of Last Use: 03/17/18. Alcohol. Route: Oral. Frequency: Daily. Amount used: 1 pint dayana. Age of first use: 12. Date of Last Use: 03/16/18. PCP. Route: Smoking. Frequency: 1-3 times last 30 days. Amount used: 1 bag. Age of first use: 19. Date of Last Use: 03/10/18. Crack. Route: Smoking. Frequency: Daily. Amount used: $100. Age of first use: 19. Date of Last Use: 03/17/18. Marijuana/Hashish. Route: Smoking. Frequency: 1-3 times last 30 days. Amount used: 1 joint. Age of first use: 13. Date of Last Use: 03/15/18 Medical History: Consistent with hypertension, diabetes mellitus, chronic lumbar pain and a history of two sections. Psychiatric History: Patient denies history of psychiatric hospitalizations. Denies any contact with psychiatric OPD care providers. Not on psychotropic medications. However, a review of records ([facility]) reveals a different profile as evidenced by the following : the patient is known for a history of psychiatric hospitalizations + diagnosis of Bipolar Disorder. Diagnosed in 2004. Did receive inpatient psychiatric care at [facility] (valproate + quetiapine). Chronic history of non-adherence to medications + OPD care. Ms Palacio denies history of suicide attempts. Physical/Sexual Abuse/Trauma History: Patient denies. Additional Comment: Urine Drug Screen Results: THC-Marijuana, TOM-Cocaine, OPI- Opiates, FEN-Fentanyl. Noted. Mental Status Exam - Mental Status Exam Alert and Oriented to: Time, Place, Person Cognitive Function: Grossly Intact Patient Appearance: Disheveled Mood: Withdrawn, Irritable Affect: Mood Congruent Patient Behavior: Fatigued, Cooperative (superficially cooperative) Speech Pattern: Delayed, Slurred Voice Loudness: Normal Thought Process: Goal Oriented Thought Disorder: Not Present Hallucinations: Denies Suicidal Ideation: Denies Homicidal Ideation: Denies Insight/Judgement: Poor Sleep: Well Appetite: Good Muscle strength/Tone: Normal Gait/Station: Other (not observed) Psychiatric Findings - Problem List ([facility] 1, 2,3) (1) Opioid dependence with withdrawal Current Visit: Yes Status: Acute (2) Alcohol dependence with uncomplicated withdrawal Current Visit: Yes Status: Acute (3) Cocaine dependence Current Visit: Yes Status: Chronic Qualifiers: Substance use status: uncomplicated Qualified Code(s): F14.20 - Cocaine dependence, uncomplicated (4) Cannabis dependence, uncomplicated Current Visit: Yes Status: Chronic (5) Nicotine dependence Current Visit: Yes Status: Chronic Qualifiers: Nicotine product type: cigarettes Substance use status: uncomplicated Qualified Code(s): F17.210 - Nicotine dependence, cigarettes, uncomplicated (6) Substance induced mood disorder Current Visit: Yes Status: Suspected (7) Non-compliant patient Current Visit: Yes Status: Chronic - Initial Treatment Plan Initial Treatment Plan: Psychoeducation. Detoxification in progress. Sleep hygiene. Observation.
--- NOTE | 2018-03-18 13:25 | EKG ---
Test Reason : Blood Pressure : / mmHG Vent. Rate : 075 BPM Atrial Rate : 075 BPM P-R Int : 158 ms QRS Dur : 080 ms QT Int : 394 ms P-R-T Axes : 058 -04 -05 degrees QTc Int : 439 ms NORMAL SINUS RHYTHM POSSIBLE LEFT ATRIAL ENLARGEMENT SEPTAL INFARCT , AGE UNDETERMINED ABNORMAL ECG WHEN COMPARED WITH ECG OF 13-JUN-2016 15:31, SEPTAL INFARCT IS NOW PRESENT Confirmed by LIVIA SMITH, PONCHO ([id number]) on 03/18/2018 1:25:32 PM Referred By: Confirmed By:PONCHO BHAKTA MD
--- NOTE | 2018-03-18 13:53 | PN ---
S CIWA - CIWA Score Nausea/Vomitin-Mild Nausea/No Vomiting Muscle Tremors: 2 Anxiety: 1-Mildly Anxious Agitation: 2 Paroxysmal Sweats: 1-Minimal Palms Moist Orientation: 0-Oriented Tacttile Disturbances: 0-None Auditory Disturbances: 0-None Visual Disturbances: 0-None Headache: 2-Mild CIWA-Ar Total Score: 9 S COWS - Scale Resting Pulse: 0= [place] 80 or Below Sweatin=Flushed/Facial Moisture Restless Observation: 0= Sits Still Pupil Size: 0= Normal to Room Light Bone or Joint Aches: 2= Severe Diffuse Aches Runny Nose/ Eye Tearin= Nasal Congestion GI Upset > 30mins: 1= Stomach Cramp Tremor Observation of Outstretched Hands: 1= Tremor [place], Not Seen Yawning Observation: 0= None Anxiety or Irritability: 0= None Goose Flesh Skin: 0=Smooth Skin COWS Score: 7 S Progress Note (SOAP) Subjective: Nausea, anxiety Objective: 03/18/18 14:07 Alert and oriented to person, place and time. In no acute distress 03/18/18 14:08 Vital Signs Temperature 97.7 F 03/18/18 13:46 Pulse Rate 57 L 03/18/18 13:46 Respiratory Rate 18 03/18/18 13:46 Blood Pressure 110/75 03/18/18 13:46 O2 Sat by Pulse Oximetry (%) Laboratory Last Values WBC 7.7 K/mm3 (4.0-10.0) 03/18/18 05:40 RBC 4.71 M/mm3 (3.60-5.2) 03/18/18 05:40 Hgb 14.3 GM/dL (10.7-15.3) 03/18/18 05:40 Hct 42.4 % (32.4-45.2) 03/18/18 05:40 MCV 90.0 fl (80-96) 03/18/18 05:40 MCH 30.4 pg (25.7-33.7) 03/18/18 05:40 MCHC 33.7 g/dl (32.0-36.0) 03/18/18 05:40 RDW 14.9 % (11.6-15.6) 03/18/18 05:40 Plt Count 241 K/MM3 (134-434) 03/18/18 05:40 MPV 10.5 fl (7.5-11.1) 03/18/18 05:40 Sodium 138 mmol/L (136-145) 03/18/18 05:40 Potassium 3.9 mmol/L (3.5-5.1) 03/18/18 05:40 Chloride 105 mmol/L (98-107) 03/18/18 05:40 Carbon Dioxide 31 mmol/L (21-32) 03/18/18 05:40 Anion Gap 2 MMOL/L (8-16) L 03/18/18 05:40 BUN 16 mg/dL (7-18) 03/18/18 05:40 Creatinine 1.2 mg/dL (0.55-1.3) 03/18/18 05:40 Creat Clearance w eGFR 46.14 (>60) 03/18/18 05:40 POC Glucometer 104 UNITS (80-120) 03/17/18 13:35 Random Glucose 81 mg/dL (74-106) 03/18/18 05:40 Calcium 9.2 mg/dL (8.5-10.1) 03/18/18 05:40 Total Bilirubin 0.3 mg/dL (0.2-1) 03/18/18 05:40 AST 19 U/L (15-37) 03/18/18 05:40 ALT 27 U/L (13-61) 03/18/18 05:40 Alkaline Phosphatase 148 U/L (45-117) H 03/18/18 05:40 Total Protein 7.7 g/dl (6.4-8.2) 03/18/18 05:40 Albumin 4.0 g/dl (3.4-5.0) 03/18/18 05:40 RPR Titer Nonreactive (NONREACTIVE) 03/18/18 05:40 HIV 1&2 Antibody Screen Negative 03/17/18 13:30 HIV P24 Antigen Negative 03/17/18 13:30 Labs noted Assessment: 03/18/18 14:09 Withdrawal symptoms Plan: Continue Detox
[2018-03-18 16:22] LABS: URINE APPEARANCE SLCLOUDY; URINE BILIRUBIN NEGATIVE (<2.0 mg/dL); URINE COLOR LTYELLOW; URINE GLUCOSE (UA) NEGATIVE (NEGATIVE); URINE KETONE NEGATIVE (NEGATIVE); URINE LEUK ESTERASE NEGATIVE (NEGATIVE); URINE NITRITE NEGATIVE (NEGATIVE); URINE PROTEIN NEGATIVE (NEGATIVE); URINE UROBILINOGEN NEGATIVE mg/dL (0.2-1.0)
[2018-03-18] MEDS: THIAMINE HCL 100 MG TABLET (FP) PO SCH (22:17)
[2018-03-19] MEDS: chlordiazePOXIDE HCL 25 MG CAPSULE PO SCH ×2 (05:23→10:14)
[2018-03-19] MEDS: METHADONE HCL 5 MG TABLET (FOR DETOX USE ONLY) PO SCH (10:14)
[2018-03-19] MEDS: amLODIPine BESYLATE 10 MG TABLET (FP) PO SCH (10:14)
[2018-03-19] MEDS: HYDROCHLOROTHIAZIDE 25 MG TABLET (FP) PO SCH (10:14)
[2018-03-19] MEDS: PRENATAL VITAMINS W/ FOLIC ACID TABLET (FP) PO SCH (10:14)
[2018-03-19] MEDS: NICOTINE 21 MG/24 HOURS TOPICAL PATCH TD SCH (10:14)
[2018-03-19] MEDS: IBUPROFEN 400 MG TABLET (FP) PO PRN ×2 (11:32→17:37)
--- NOTE | 2018-03-19 12:13 | PN ---
[facility] CIWA - CIWA Score Nausea/Vomitin-No Nausea/No Vomiting Muscle Tremors: 2 Anxiety: 3 Agitation: 1-Slight > Activity Paroxysmal Sweats: 1-Minimal Palms Moist Orientation: 0-Oriented Tacttile Disturbances: 0-None Auditory Disturbances: 0-None Visual Disturbances: 0-None Headache: 1-Very Mild CIWA-Ar Total Score: 8 [facility] COWS - Scale Resting Pulse: 0= [place] 80 or Below Sweatin= Chills/Flushing Restless Observation: 0= Sits Still Pupil Size: 0= Normal to Room Light Bone or Joint Aches: 1= Mild Discomfort Runny Nose/ Eye Tearin= Nasal Congestion GI Upset > 30mins: 1= Stomach Cramp Tremor Observation of Outstretched Hands: 1= Tremor [place], Not Seen Yawning Observation: 1= 1-2x During Session Anxiety or Irritability: 1=Feels Anxious/Irritable Goose Flesh Skin: 0=Smooth Skin COWS Score: 7 [facility] Progress Note (SOAP) Subjective: body aches joints pain tremor sweating mild gi distress able to tolerate fluid better Objective: 03/19/18 12:12 Vital Signs Temperature 96.8 F L 03/19/18 09:09 Pulse Rate 59 L 03/19/18 09:09 Respiratory Rate 16 03/19/18 09:09 Blood Pressure 135/98 03/19/18 09:09 O2 Sat by Pulse Oximetry (%) Laboratory Last Values WBC 7.7 K/mm3 (4.0-10.0) 03/18/18 05:40 RBC 4.71 M/mm3 (3.60-5.2) 03/18/18 05:40 Hgb 14.3 GM/dL (10.7-15.3) 03/18/18 05:40 Hct 42.4 % (32.4-45.2) 03/18/18 05:40 MCV 90.0 fl (80-96) 03/18/18 05:40 MCH 30.4 pg (25.7-33.7) 03/18/18 05:40 MCHC 33.7 g/dl (32.0-36.0) 03/18/18 05:40 RDW 14.9 % (11.6-15.6) 03/18/18 05:40 Plt Count 241 K/MM3 (134-434) 03/18/18 05:40 MPV 10.5 fl (7.5-11.1) 03/18/18 05:40 Sodium 138 mmol/L (136-145) 03/18/18 05:40 Potassium 3.9 mmol/L (3.5-5.1) 03/18/18 05:40 Chloride 105 mmol/L (98-107) 03/18/18 05:40 Carbon Dioxide 31 mmol/L (21-32) 03/18/18 05:40 Anion Gap 2 MMOL/L (8-16) L 03/18/18 05:40 BUN 16 mg/dL (7-18) 03/18/18 05:40 Creatinine 1.2 mg/dL (0.55-1.3) 03/18/18 05:40 Creat Clearance w eGFR 46.14 (>60) 03/18/18 05:40 POC Glucometer 104 UNITS (80-120) 03/17/18 13:35 Random Glucose 81 mg/dL (74-106) 03/18/18 05:40 Calcium 9.2 mg/dL (8.5-10.1) 03/18/18 05:40 Total Bilirubin 0.3 mg/dL (0.2-1) 03/18/18 05:40 AST 19 U/L (15-37) 03/18/18 05:40 ALT 27 U/L (13-61) 03/18/18 05:40 Alkaline Phosphatase 148 U/L (45-117) H 03/18/18 05:40 Total Protein 7.7 g/dl (6.4-8.2) 03/18/18 05:40 Albumin 4.0 g/dl (3.4-5.0) 03/18/18 05:40 Urine Color Ltyellow 03/18/18 14:18 Urine Appearance Slcloudy 03/18/18 14:18 Urine pH 5.0 (5.0-8.0) 03/18/18 14:18 Ur Specific [place] 1.013 (1.010-1.035) 03/18/18 14:18 Urine Protein Negative (NEGATIVE) 03/18/18 14:18 Urine Glucose (UA) Negative (NEGATIVE) 03/18/18 14:18 Urine Ketones Negative (NEGATIVE) 03/18/18 14:18 Urine Blood Negative (NEGATIVE) 03/18/18 14:18 Urine Nitrite Negative (NEGATIVE) 03/18/18 14:18 Urine Bilirubin Negative (<2.0 mg/dL) 03/18/18 14:18 Urine Urobilinogen Negative mg/dL (0.2-1.0) 03/18/18 14:18 Ur Leukocyte Esterase Negative (NEGATIVE) 03/18/18 14:18 RPR Titer Nonreactive (NONREACTIVE) 03/18/18 05:40 HIV 1&2 Antibody Screen Negative 03/17/18 13:30 HIV P24 Antigen Negative 03/17/18 13:30 lab noted Assessment: 03/19/18 12:13 withdrawal sx Plan: continue detox
[2018-03-19] MEDS: chlordiazePOXIDE 5 MG CAPSULE PO SCH ×2 (17:37→22:32)
[2018-03-19] MEDS: THIAMINE HCL 100 MG TABLET (FP) PO SCH (22:32)
[2018-03-20] MEDS ORDERED: CYCLOBENZAPRINE HCL 5 MG TABLET PO PRN (04:33)
[2018-03-20] MEDS: chlordiazePOXIDE 5 MG CAPSULE PO SCH ×2 (05:36→11:04)
[2018-03-20] MEDS: IBUPROFEN 400 MG TABLET (FP) PO PRN (05:36)
[2018-03-20] MEDS ORDERED: ONDANSETRON *ODT* 4 MG TABLET SL ONE (08:37)
[2018-03-20] MEDS ORDERED: TRIMETHOBENZAMIDE HCL 200MG/2ML INJ IM ONE (09:02)
--- NOTE | 2018-03-20 09:04 | PN ---
[facility] Progress Note (SOAP) Subjective: c/o vomiting before breakfast patient had a cup of clear water observed patient lying on bed vomiting zofrain 4 mg sl x 1 without effect tigan 200 mg IM x 1 at 0915 am around 1000 patient continue vomiting patient does not want to go to the ER lisseth abundio x 1 following by vomiting Objective: 03/20/18 12:44 Vital Signs Temperature 97.0 F L 03/20/18 10:12 Pulse Rate 79 03/20/18 10:12 Respiratory Rate 17 03/20/18 10:12 Blood Pressure 218/125 H 03/20/18 10:12 O2 Sat by Pulse Oximetry (%) Laboratory Last Values WBC 7.7 K/mm3 (4.0-10.0) 03/18/18 05:40 RBC 4.71 M/mm3 (3.60-5.2) 03/18/18 05:40 Hgb 14.3 GM/dL (10.7-15.3) 03/18/18 05:40 Hct 42.4 % (32.4-45.2) 03/18/18 05:40 MCV 90.0 fl (80-96) 03/18/18 05:40 MCH 30.4 pg (25.7-33.7) 03/18/18 05:40 MCHC 33.7 g/dl (32.0-36.0) 03/18/18 05:40 RDW 14.9 % (11.6-15.6) 03/18/18 05:40 Plt Count 241 K/MM3 (134-434) 03/18/18 05:40 MPV 10.5 fl (7.5-11.1) 03/18/18 05:40 Sodium 138 mmol/L (136-145) 03/18/18 05:40 Potassium 3.9 mmol/L (3.5-5.1) 03/18/18 05:40 Chloride 105 mmol/L (98-107) 03/18/18 05:40 Carbon Dioxide 31 mmol/L (21-32) 03/18/18 05:40 Anion Gap 2 MMOL/L (8-16) L 03/18/18 05:40 BUN 16 mg/dL (7-18) 03/18/18 05:40 Creatinine 1.2 mg/dL (0.55-1.3) 03/18/18 05:40 Creat Clearance w eGFR 46.14 (>60) 03/18/18 05:40 POC Glucometer 104 UNITS (80-120) 03/17/18 13:35 Random Glucose 81 mg/dL (74-106) 03/18/18 05:40 Calcium 9.2 mg/dL (8.5-10.1) 03/18/18 05:40 Total Bilirubin 0.3 mg/dL (0.2-1) 03/18/18 05:40 AST 19 U/L (15-37) 03/18/18 05:40 ALT 27 U/L (13-61) 03/18/18 05:40 Alkaline Phosphatase 148 U/L (45-117) H 03/18/18 05:40 Total Protein 7.7 g/dl (6.4-8.2) 03/18/18 05:40 Albumin 4.0 g/dl (3.4-5.0) 03/18/18 05:40 Urine Color Ltyellow 03/18/18 14:18 Urine Appearance Slcloudy 03/18/18 14:18 Urine pH 5.0 (5.0-8.0) 03/18/18 14:18 Ur Specific [place] 1.013 (1.010-1.035) 03/18/18 14:18 Urine Protein Negative (NEGATIVE) 03/18/18 14:18 Urine Glucose (UA) Negative (NEGATIVE) 03/18/18 14:18 Urine Ketones Negative (NEGATIVE) 03/18/18 14:18 Urine Blood Negative (NEGATIVE) 03/18/18 14:18 Urine Nitrite Negative (NEGATIVE) 03/18/18 14:18 Urine Bilirubin Negative (<2.0 mg/dL) 03/18/18 14:18 Urine Urobilinogen Negative mg/dL (0.2-1.0) 03/18/18 14:18 Ur Leukocyte Esterase Negative (NEGATIVE) 03/18/18 14:18 RPR Titer Nonreactive (NONREACTIVE) 03/18/18 05:40 HIV 1&2 Antibody Screen Negative 03/17/18 13:30 HIV P24 Antigen Negative 03/17/18 13:30 lab noted Assessment: 03/20/18 12:47 vomiting unknown origin 03/20/18 12:47 Plan: ER evaluation is ne necessary due to poor fluid toleration and bp elevation around [address] Sierra Carrasco that 57 years old female admitted on 03/17/18 for alcohol and opiate dependent medical history of hypertension diabetes patient was doing well till early today around 0700 am patient began vomiting with bp elevation, patient received librium methadon amlodipine hctz lisinopril [place] vitamin flexeril, motrin discontinue motrin begin zofrain and tigan
[2018-03-20 09:18] VITALS: TEMP 97
[2018-03-20] MEDS: amLODIPine BESYLATE 10 MG TABLET (FP) PO SCH (09:22)
[2018-03-20] MEDS: PRENATAL VITAMINS W/ FOLIC ACID TABLET (FP) PO SCH (09:22)
[2018-03-20] MEDS: HYDROCHLOROTHIAZIDE 25 MG TABLET (FP) PO SCH (09:22)
[2018-03-20] MEDS: METHADONE HCL 5 MG TABLET (FOR DETOX USE ONLY) PO SCH (09:23)
[2018-03-20] MEDS ORDERED: LISINOPRIL 5 MG TABLET (FP) PO SCH (10:00)
[2018-03-20] MEDS ORDERED: LISINOPRIL 10 MG TABLET (FP) PO SCH (10:00)
[2018-03-20 10:12] VITALS: BP 218/125; PULSE 79
[2018-03-20] MEDS: NICOTINE 21 MG/24 HOURS TOPICAL PATCH TD SCH (11:00)
[2018-03-20] MEDS: chlordiazePOXIDE HCL 10 MG CAPSULE PO SCH ×2 (17:45→22:26)
[2018-03-20] MEDS: THIAMINE HCL 100 MG TABLET (FP) PO SCH (22:26)
[2018-03-21] MEDS ORDERED: METHADONE HCL 10 MG TABLET (FOR DETOX USE ONLY) PO SCH (10:00)
[2018-03-22] MEDS ORDERED: METHADONE HCL 5 MG TABLET (FOR DETOX USE ONLY) PO SCH (06:00)
== END 2018-03-20 23:38 | disposition short-term general hospital (02) | DRG 773 ==
LOC: YASAS 10:49 → Y3N 13:44
PROVIDERS: ADMIT Neuromusculoskeletal Medicine & OMM; ATTEND Neuromusculoskeletal Medicine & OMM
PROC: HZ2ZZZZ Detoxification Services for Substance Abuse Treatment (ICD-10-PCS; principal; 2018-03-17)
DX: F11.23 Opioid dependence with withdrawal (principal); F10.230 Alcohol dependence with withdrawal, uncomplicated; F14.20 Cocaine dependence, uncomplicated; F12.20 Cannabis dependence, uncomplicated; F16.10 Hallucinogen abuse, uncomplicated; F17.210 Nicotine dependence, cigarettes, uncomplicated; F31.81 Bipolar II disorder; I12.0 Hypertensive chronic kidney disease with stage 5 chronic kidney disease or end stage renal disease; E11.9 Type 2 diabetes mellitus without complications; R11.10 Vomiting, unspecified; M54.5 Low back pain; Z91.14 Patient's other noncompliance with medication regimen; Z88.1 Allergy status to other antibiotic agents; Z88.2 Allergy status to sulfonamides
CPT/HCPCS: 36415; 80053; 81003; 82962; 85027; 86593; 87389; 93005; 93010; J0735; Q0162

== ENCOUNTER 2018-03-20 10:48 | Inpatient (IN) | payer OTHER ==
[2018-03-20 11:14] VITALS: BMI 26.6
[2018-03-20] MEDS ORDERED: METOCLOPRAMIDE HCL INJECTION 10 MG/2 ML VIAL IVPUSH ONE (11:31)
[2018-03-20] MEDS ORDERED: LABETALOL HCL 5 MG/1 ML (100MG/20 ML VIAL) IVPUSH ONE (11:34)
--- NOTE | 2018-03-20 11:43 | PDOC ---
Attending Attestation - Resident Resident Name: AbdulkadirBoston michaud - ED Attending Attestation I have performed the following: I have examined & evaluated the patient, The case was reviewed & discussed with the resident, I agree w/resident's findings & plan, Exceptions are as noted - HPI HPI: 03/20/18 11:44 57y F hx of htn, dm, polysubstance (etoh, cociane, pcp, marijana), chronic back pain secondary to arthritis presents with persistent vomiiting from [facility]. Patient has been doing well at [facility] for EtOH and heroin detox, patient states that this morning when she woke up she started feeling very nauseous she also started feeling mild abdomina discomfort. The patient denies any fever, chills, chest pain, shortness of breath, headache, vision changes, diarrhea, blood per rectum, bloody vomitus, focal numbness, tingling, weakness in extremities. Patient states that her blood pressure is usually fairly well controlled. - Physicial Exam PE: 03/20/18 12:38 GENERAL: The patient is awake, alert, and fully oriented, Nontoxic - in no acute distress. HEAD: Normocephalic, atraumatic. EYES: Pupils 2 mm symmetric, EOMI ENT: Normal voice, Moist mucous membranes. NECK: Normal range of motion, supple LUNGS: Breath sounds equal, clear to auscultation bilaterally. No wheezes, no rhonchi, no rales. HEART: Regular rate and rhythm, normal S1 and S2 without murmur, rub or gallop. ABDOMEN: Soft, nontender No guarding, no rebound. . No CVA tenderness EXTREMITIES: Normal range of motion, no edema. No clubbing or cyanosis. No cords, erythema, or tenderness. NEUROLOGICAL: No facial assymetry, Normal speech, moving all 4 extremity spontaneously and symmetrically PSYCH: Normal mood, normal affect. SKIN: Warm, Dry, normal turgor, - Medical Decision Making 03/20/18 12:39 unclear cuase of the pts acut eincrease of bp her BP were stable for the initial 2 days before increasing significantly differential wide - ?withdrawal? although pt is otherwise not hyperdynamic ?pancreatitis, gastritis, acs will ck labs, bp control, ekg consider imaging Heart Score/ECG Review - ECG Impressions Comment:: 03/20/18 12:40 Twelve-lead EKG was performed and reviewed by me. There is normal sinus rhythm with a normal rate. Rate of 86 The axis is normal. The intervals are normal. There is normal R wave progression There are no ST or T wave abnormalities. fusion complexes noted
[2018-03-20] MEDS ORDERED: METOCLOPRAMIDE HCL INJECTION 10 MG/2 ML VIAL ONE (12:05)
[2018-03-20] MEDS ORDERED: LORazepam 2 MG/ML SDV VIAL ONE ×2 (12:05→14:15)
--- NOTE | 2018-03-20 12:06 | PDOC ---
History of Present Illness - General Chief Complaint: Blood Pressure Problem Stated Complaint: Blood Pressure Problem Time Seen by Provider: 03/20/18 11:15 History Source: Patient Exam Limitations: No Limitations - History of Present Illness Initial Comments: 03/20/18 12:01 Patient is 57F with history of htn, dm, polysubstance abuse (etoh, cocaine, heroin/opiates), PCP here today complaining of vomiting that started this morning. Patient has been in [facility] for detox since 03/17. Patient reports taking some "green" pills that were "downers" on 03/17. Denies fevers, chills, chest pain. Reports some pain in her epigastrium. Denies chest pain, shortness of breath and headache. Denies dysuria. Last bowel movement today. Had c- section in distant past. Past History - Past Medical History Allergies/Adverse Reactions: Allergies Allergy/AdvReac Type Severity Reaction Status Date / Time sulfamethoxazole Allergy Mild Hives Verified 03/17/18 13:27 [From Bactrim] trimethoprim [From Bactrim] Allergy Mild Hives Verified 03/17/18 13:27 Home Medications: Ambulatory Orders Acetaminophen [Pain Relief] 650 mg PO Q4H PRN 03/20/18 Amlodipine Besylate [Norvasc -] 10 mg PO DAILY 03/20/18 Chlordiazepoxide [Librium -] 10 mg PO Q6HPO 03/20/18 Chlordiazepoxide [Librium -] 15 mg PO Q6H 03/20/18 Chlordiazepoxide [Librium -] 25 mg PO Q4H PRN 03/20/18 Cyclobenzaprine HCl 5 mg PO DAILY PRN 03/20/18 Guaifenesin Dm [Robitussin Dm -] 10 ml PO Q6H PRN 03/20/18 Hydrochlorothiazide [Hctz -] 25 mg PO DAILY 03/20/18 Loperamide HCl [Loperamide] 4 mg PO Q4H PRN 03/20/18 Mag Hydrox/Al Hydrox/Simeth [Mylanta *Suspension*] 30 ml PO Q6H PRN 03/20/18 Magnesium Citrate [Citroma -] 195 ml PO ONCE PRN 03/20/18 Magnesium Hydrox 2400MG/30Ml [Milk of Magnesia -] 30 ml PO DAILY PRN 03/20/18 Melatonin 5 mg PO HS PRN 03/20/18 Menthol/Phenol [Cepastat Lozenge -] 1 each MM Q4H PRN 03/20/18 Methadone [Dolophine -] 5 mg PO DAILY 03/20/18 Methadone [Dolophine -] 10 mg PO DAILY 03/20/18 Methadone [Dolophine -] 15 mg PO DAILY 03/20/18 Nicotine Patch [Nicoderm Patch -] 1 patch TD DAILY 03/20/18 Nicotine Polacrilex [Nicorette Gum -] 4 mg BUC Q2H PRN 03/20/18 Pnv No.121/Iron/Folic Acid [ Multivitamin Tablet] 1 each PO DAILY Pseudoephedrine/Acetaminophen [Nexafed Sinus Press-Pain Tab] 1 each PO TID PRN 03/20/18 Thiamine HCl [Vitamin B-1] 100 mg PO HS 03/20/18 hydrOXYzine PAMOATE [Vistaril -] 50 mg PO Q4H PRN 03/20/18 Anemia: No Asthma: No Cancer: No Cardiac Disorders: No CVA: No COPD: No CHF: No Dementia: No Diabetes: Yes (Hx of Type II not on meds.) GI Disorders: No Disorders: No HTN: Yes (non compliant with meds.) Hypercholesterolemia: No Kidney Stones: No Liver Disease: No Seizures: No Thyroid Disease: No - Surgical History Abdominal Surgery: No Appendectomy: No Cardiac Surgery: No Cholecystectomy: No Lung Surgery: No Neurologic Surgery: No Orthopedic Surgery: No - Reproductive History PID: No - Suicide/Smoking/Psychosocial Hx Smoking History: Current every day smoker Have you smoked in the past 12 months: Yes Number of Cigarettes Smoked Daily: 10 Cigars Per Day: 0 Information on smoking cessation initiated: No 'Breaking Loose' booklet given: 03/17/18 Hx Alcohol Use: Yes Drug/Substance Use Hx: Yes Substance Use Type: Alcohol, Cocaine, Heroin, Opiates, Tranquilizers Hx Substance Use Treatment: Yes (last detox [facility] 6months ago) Review of Systems - Review of Systems Comments:: 03/20/18 12:06 GENERAL/CONSTITUTIONAL: No fever or chills. No weakness. HEAD, EYES, EARS, NOSE AND THROAT: No change in vision. No sore throat. CARDIOVASCULAR: No chest pain or shortness of breath RESPIRATORY: No cough, wheezing, or hemoptysis. GASTROINTESTINAL: +nausea, +vomiting, no diarrhea or constipation. GENITOURINARY: No dysuria, frequency, or change in urination. MUSCULOSKELETAL: No joint or muscle swelling or pain. No neck or back pain. SKIN: No rash NEUROLOGIC: No headache, vertigo, loss of consciousness, or change in strength/ sensation. ENDOCRINE: No increased thirst. No abnormal weight change HEMATOLOGIC/LYMPHATIC: No anemia, easy bleeding, or history of blood clots. ALLERGIC/IMMUNOLOGIC: No hives or skin allergy. *Physical Exam - Vital Signs Last Vital Signs Temp Pulse Resp BP Pulse Ox 98.5 F 77 16 199/115 H 99 03/20/18 11:03 03/20/18 11:03 03/20/18 11:03 03/20/18 11:03 03/20/18 11:03 - Physical Exam Comments: 03/20/18 12:06 GENERAL: Awake, alert, and fully oriented, in no acute distress HEAD: No signs of trauma, normocephalic, atraumatic EYES: PERRLA, EOMI, sclera anicteric, conjunctiva clear ENT: Auricles normal inspection, hearing grossly normal, nares patent, oropharynx clear without exudates. Moist mucosa NECK: Normal ROM, supple, no lymphadenopathy, JVD, or masses LUNGS: No distress, speaks full sentences, clear to auscultation bilaterally HEART: Regular rate and rhythm, normal S1 and S2, no murmurs, rubs or gallops, peripheral pulses normal and equal bilaterally. ABDOMEN:mild epigastric tenderness, normoactive bowel sounds. No guarding, no rebound. No pulsatile mass EXTREMITIES: Normal inspection, Normal range of motion, no edema. No clubbing or cyanosis. NEUROLOGICAL: Cranial nerves II through XII grossly intact. Normal speech, normal gait, no focal sensorimotor deficits, not tremulous SKIN: Warm, Dry, normal turgor, no rashes or lesions noted. Moderate Sedation - Procedure Monitoring Vital Signs: Procedure Monitoring Vital Signs Temperature 98.5 F 03/20/18 11:03 Pulse Rate 77 03/20/18 11:03 Respiratory Rate 16 03/20/18 11:03 Blood Pressure 199/115 H 03/20/18 11:03 O2 Sat by Pulse Oximetry (%) 99 03/20/18 11:03 ED Treatment Course - LABORATORY CBC & Chemistry Diagram: 03/20/18 12:00 03/20/18 12:00 - RADIOLOGY Radiology Studies Ordered: Category Date Time Status CHEST X-RAY PORTABLE* [RAD] Stat Radiology 03/20/18 11:33 Taken Medical Decision Making - Medical Decision Making 03/20/18 12:07 Patient is 57F with history of htn, dm, polysubstance abuse here today with vomiting. BP notable for 199/115, repeated with 230 systolic. BPs reviewed, systolic in 150s. Patient of questionable reliability as a historian. Will evaluate broadly with cbc, cmp, trop, pt/inr, ekg, head ct, abdominal cta, lipase, ua. Will treat with reglan, hydralazine (labetalol on back order), ativan. DDx includes, but is not limited to: acs, pancreatitis, gastritis, aaa, head bleed. 03/20/18 16:58 CBC shows signs of hemoconcentration. BP elevated to 210 systolic, given additional hydralazine, BP 189 systolic on repeat CMP unremarkable. Trop negative. Head CT negative. Abdominal CT shows thickening in adrenal gland, mild hyperplasia vs cyst. Normal aorta. Suggests biochemical evaluation for ?secondary hypertension. Patient continues to feel unwell and nauseous. Unclear etiology of hypertension , still not having tremors or signs of alcohol withdrawal. Will obs for further evaluation. 03/20/18 17:46 Accepted to [facility]. *DC/Admit/Observation/Transfer Diagnosis at time of Disposition: Vomiting, Hypertension - Discharge Dispostion Condition at time of disposition: Stable Decision to Admit order: Yes - Referrals - Patient Instructions - Post Discharge Activity
[2018-03-20] MEDS ORDERED: hydrALAZINE HCL 20 MG/ML VIAL IVPUSH ONE ×2 (12:09→14:51)
[2018-03-20 12:11] LABS: BASO % 0.4 % (0-2.0); EOS % 0.1 % (0-4.5); HEMATOCRIT 49.2 % (32.4-45.2); HEMOGLOBIN 16.9 GM/dL (10.7-15.3); LYMPH % 8.3 % (8-40); MCH 30.4 pg (25.7-33.7); MCHC 34.3 g/dl (32.0-36.0); MEAN CELL VOLUME 88.4 fl (80-96); MEAN PLT VOLUME 9.8 fl (7.5-11.1); MONO % 1.1 % (3.8-10.2); NEUT % 90.1 % (42.8-82.8); PLATELET COUNT 266 K/MM3 (134-434); RBC 5.56 M/mm3 (3.60-5.2); RDW 15.1 % (11.6-15.6); WHITE BLOOD COUNT 10.3 K/mm3 (4.0-10.0)
[2018-03-20] MEDS ORDERED: hydrALAZINE HCL 20 MG/ML VIAL ONE ×2 (12:11→14:52)
[2018-03-20 12:39] LABS: INR 0.97 (0.83-1.09); PROTHROMBIN TIME (PATIENT) 11.5 SEC (9.7-13.0)
[2018-03-20 12:46] LABS: ALBUMIN 4.2 g/dl (3.4-5.0); ALK PHOS 166 U/L (45-117); ANION GAP 9 MMOL/L (8-16); BILIRUBIN,TOTAL 0.4 mg/dL (0.2-1); BLOOD UREA NITROGEN 18 mg/dL (7-18); CHLORIDE 101 mmol/L (98-107); CO2 27 mmol/L (21-32); CREATININE 1.2 mg/dL (0.55-1.3); GLUCOSE,RANDOM 165 mg/dL (74-106); LIPASE 80 U/L (73-393); MAGNESIUM 1.9 mg/dL (1.8-2.4); POTASSIUM 3.5 mmol/L (3.5-5.1); SGOT/AST 18 U/L (15-37); SGPT/ALT 37 U/L (13-61); SODIUM 136 mmol/L (136-145); TOT PROT 8.4 g/dl (6.4-8.2)
[2018-03-20] MEDS ORDERED: SODIUM CHLORIDE 1,000 ML IV STA (12:58)
[2018-03-20] MEDS ORDERED: guaiFENesin/D-METHORPHAN HB 10 ML UNIT-DOSE CUPS PO PRN (18:54)
[2018-03-20] MEDS ORDERED: ONDANSETRON 4 MG/2 ML VIAL IVPB PRN (18:56)
[2018-03-20] MEDS ORDERED: chlordiazePOXIDE 5 MG CAPSULE ONE (20:15)
[2018-03-20] MEDS: chlordiazePOXIDE 5 MG CAPSULE PO SCH (20:22)
[2018-03-20] MEDS ORDERED: LORazepam 2 MG/ML SDV VIAL IVPUSH PRN (20:53)
[2018-03-20] MEDS ORDERED: FUROSEMIDE 40 MG/4 ML INJECTABLE VIAL IVPUSH ONE (20:53)
--- NOTE | 2018-03-20 20:58 | HP ---
Admitting History and Physical - Primary Care Physician PCP: Radha Padron - Admission History of Present Illness: 57y F hx of htn, dm, poly substance (etoh, cociane, pcp, cong), chronic back pain secondary to arthritis presents with persistent vomiiting from [facility]. Patient has been doing well at [facility] for EtOH and heroin detox, patient states that this morning when she woke up she started feeling very nauseous she also started feeling mild abdominal discomfort. The patient denies any fever, chills, chest pain, shortness of breath, headache, vision changes, diarrhea, blood per rectum, bloody vomitus, focal numbness, tingling, weakness in extremities. Patient states that her blood pressure is usually fairly well controlled. - Past Medical History Cardiovascular: Yes: HTN ...LMP: 09/02/08 Endocrine: Yes: Diabetes Mellitus - Smoking History Smoking history: Current every day smoker Have you smoked in the past 12 months: Yes Aproximately how many cigarettes per day: 10 - Alcohol/Substance Use Hx Alcohol Use: Yes Home Medications - Allergies Allergies/Adverse Reactions: Allergies Allergy/AdvReac Type Severity Reaction Status Date / Time sulfamethoxazole Allergy Mild Hives Verified 03/17/18 13:27 [From Bactrim] trimethoprim [From Bactrim] Allergy Mild Hives Verified 03/17/18 13:27 - Home Medications Home Medications: Ambulatory Orders Acetaminophen [Pain Relief] 650 mg PO Q4H PRN 03/20/18 Amlodipine Besylate [Norvasc -] 10 mg PO DAILY 03/20/18 Chlordiazepoxide [Librium -] 10 mg PO Q6HPO 03/20/18 Chlordiazepoxide [Librium -] 15 mg PO Q6H 03/20/18 Chlordiazepoxide [Librium -] 25 mg PO Q4H PRN 03/20/18 Cyclobenzaprine HCl 5 mg PO DAILY PRN 03/20/18 Guaifenesin Dm [Robitussin Dm -] 10 ml PO Q6H PRN 03/20/18 Hydrochlorothiazide [Hctz -] 25 mg PO DAILY 03/20/18 Loperamide HCl [Loperamide] 4 mg PO Q4H PRN 03/20/18 Mag Hydrox/Al Hydrox/Simeth [Mylanta *Suspension*] 30 ml PO Q6H PRN 03/20/18 Magnesium Citrate [Citroma -] 195 ml PO ONCE PRN 03/20/18 Magnesium Hydrox 2400MG/30Ml [Milk of Magnesia -] 30 ml PO DAILY PRN 03/20/18 Melatonin 5 mg PO HS PRN 03/20/18 Menthol/Phenol [Cepastat Lozenge -] 1 each MM Q4H PRN 03/20/18 Methadone [Dolophine -] 5 mg PO DAILY 03/20/18 Methadone [Dolophine -] 10 mg PO DAILY 03/20/18 Methadone [Dolophine -] 15 mg PO DAILY 03/20/18 Nicotine Patch [Nicoderm Patch -] 1 patch TD DAILY 03/20/18 Nicotine Polacrilex [Nicorette Gum -] 4 mg BUC Q2H PRN 03/20/18 Pnv No.121/Iron/Folic Acid [ Multivitamin Tablet] 1 each PO DAILY Pseudoephedrine/Acetaminophen [Nexafed Sinus Press-Pain Tab] 1 each PO TID PRN 03/20/18 Thiamine HCl [Vitamin B-1] 100 mg PO HS 03/20/18 hydrOXYzine PAMOATE [Vistaril -] 50 mg PO Q4H PRN 03/20/18 Family Disease History - Family Disease History Family Disease History: Diabetes: Father, Mother, Sister Physical Examination Vital Signs: Vital Signs Temperature 98.6 F 03/20/18 17:22 Pulse Rate 124 H 03/20/18 17:22 Respiratory Rate 16 03/20/18 17:22 Blood Pressure 198/119 H 03/20/18 17:22 O2 Sat by Pulse Oximetry (%) 98 03/20/18 17:22 Constitutional: Yes: Anxious HENT: Yes: Atraumatic Neck: Yes: Supple Cardiovascular: Yes: Regular Rate and Rhythm Respiratory: Yes: CTA Bilaterally Gastrointestinal: Yes: Normal Bowel Sounds Extremities: Yes: WNL Edema: No Neurological: Yes: Alert, Oriented Labs: CBC, BMP 03/20/18 12:00 03/20/18 12:00 Problem List - Problems (1) Alcohol dependence with uncomplicated withdrawal Assessment/Plan: on plibrium prn ativan detox consult Code(s): F10.230 - ALCOHOL DEPENDENCE WITH WITHDRAWAL, UNCOMPLICATED (2) Cocaine dependence Code(s): F14.20 - COCAINE DEPENDENCE, UNCOMPLICATED Qualifiers: (3) HTN (hypertension) Assessment/Plan: bp has been high on meds monitor on tele Code(s): I10 - ESSENTIAL (PRIMARY) HYPERTENSION Qualifiers: (4) Nicotine dependence Assessment/Plan: will give nicotine patch if needed Code(s): F17.200 - NICOTINE DEPENDENCE, UNSPECIFIED, UNCOMPLICATED Qualifiers: (5) Opioid dependence with withdrawal Code(s): F11.23 - OPIOID DEPENDENCE WITH WITHDRAWAL (6) PCP (phencyclidine) abuse Code(s): F16.10 - HALLUCINOGEN ABUSE, UNCOMPLICATED (7) Substance induced mood disorder Code(s): F19.94 - OTH PSYCHOACTIVE SUBSTANCE USE, UNSP W MOOD DISORDER (8) Type II diabetes mellitus Code(s): E11.9 - TYPE 2 DIABETES MELLITUS WITHOUT COMPLICATIONS (9) Vomiting Assessment/Plan: prn zofran Code(s): R11.10 - VOMITING, UNSPECIFIED Assessment/Plan Laboratory Tests 03/20/18 03/20/18 03/20/18 12:00 12:00 12:00 WBC 10.3 H RBC 5.56 H Hgb 16.9 H Hct 49.2 H D MCV 88.4 MCH 30.4 MCHC 34.3 RDW 15.1 Plt Count 266 MPV 9.8 Absolute Neuts (auto) 9.3 H Neutrophils % 90.1 H Lymphocytes % 8.3 Monocytes % 1.1 L Eosinophils % 0.1 Basophils % 0.4 Nucleated RBC % 0 PT with INR 11.50 INR 0.97 Sodium 136 Potassium 3.5 Chloride 101 Carbon Dioxide 27 Anion Gap 9 BUN 18 Creatinine 1.2 Creat Clearance w eGFR 46.14 Random Glucose 165 H Calcium 10.0 Phosphorus 2.0 L Magnesium 1.9 Total Bilirubin 0.4 AST 18 ALT 37 Alkaline Phosphatase 166 H Creatine Kinase 67 Troponin I < 0.02 Total Protein 8.4 H Albumin 4.2 Lipase 80 Blood Type Antibody Screen 03/20/18 12:00 WBC RBC Hgb Hct MCV MCH MCHC RDW Plt Count MPV Absolute Neuts (auto) Neutrophils % Lymphocytes % Monocytes % Eosinophils % Basophils % Nucleated RBC % PT with INR INR Sodium Potassium Chloride Carbon Dioxide Anion Gap BUN Creatinine Creat Clearance w eGFR Random Glucose Calcium Phosphorus Magnesium Total Bilirubin AST ALT Alkaline Phosphatase Creatine Kinase Troponin I Total Protein Albumin Lipase Blood Type O POSITIVE Antibody Screen Negative Active Medications Generic Name Dose Route Start Last Admin Trade Name Freq PRN Reason Stop Dose Admin Amlodipine Besylate 10 mg 03/21/18 10:00 Norvasc - PO DAILY NANCY Chlordiazepoxide HCl 15 mg 03/20/18 19:30 03/20/18 20:22 Librium - PO 15 mg Q6HPO NANCY Administration Furosemide 40 mg 03/20/18 20:53 Lasix Injection - IVPUSH 03/20/18 20:54 ONCE ONE Guaifenesin 10 ml 03/20/18 18:54 Robitussin Dm - PO Q6H PRN COUGH Hydrochlorothiazide 25 mg 03/21/18 10:00 Hctz - PO DAILY [facility] Lorazepam 1 mg 03/20/18 20:53 Ativan Injection - IVPUSH Q6H PRN AGITATION Methadone HCl 15 mg 03/21/18 10:00 Dolophine - PO DAILY [facility] Ondansetron HCl 4 mg 03/20/18 18:56 Zofran Injection IVPB Q4H PRN NAUSEA AND/OR VOMITING
[2018-03-20] MEDS ORDERED: FUROSEMIDE 40 MG/4 ML INJECTABLE VIAL ONE (21:08)
[2018-03-20] MEDS ORDERED: amLODIPine BESYLATE 5 MG TABLET (FP) ONE (21:09)
[2018-03-20] MEDS ORDERED: HYDROCHLOROTHIAZIDE 25 MG TABLET (FP) ONE (21:09)
[2018-03-21] MEDS ORDERED: ACETAMINOPHEN 1000 MG/100 ML VIAL (NON FORMULARY) IVPB ONE (00:15)
[2018-03-21] MEDS ORDERED: ACETAMINOPHEN 325 MG TABLET (FP) PO ONE (00:17)
[2018-03-21] MEDS ORDERED: chlordiazePOXIDE 5 MG CAPSULE ONE (00:21)
[2018-03-21] MEDS: chlordiazePOXIDE 5 MG CAPSULE PO SCH (00:28)
--- NOTE | 2018-03-21 04:38 | HOSP ---
Physical Examination Vital Signs: Vital Signs Temperature 98.6 F 03/20/18 17:22 Pulse Rate 124 H 03/20/18 17:22 Respiratory Rate 16 03/20/18 17:22 Blood Pressure 193/133 H 03/20/18 20:15 O2 Sat by Pulse Oximetry (%) 98 03/20/18 17:22 Labs: CBC, BMP 03/20/18 12:00 03/20/18 12:00 Hospitalist Encounter Assessment: hospitalist paged as patient wanted to sign out AMA at 4:25 am. she was alert oriented X3- she understood the risks involved with signing out AMA such as injury, accident, complications and or . she was fully aware and still willing to leave. Visit type - Emergency Visit Emergency Visit: Yes ED Registration Date: 03/20/18 Care time: The patient presented to the Emergency Department on the above date and was hospitalized for further evaluation of their emergent condition. - New Patient This patient is new to me today: Yes Date on this admission: 03/21/18 - Critical Care Critical Care patient: No
[2018-03-21 05:15] VITALS: BP 155/92; PULSE 88; TEMP 97.9
--- NOTE | 2018-03-21 05:58 | DS ---
Physical Exam: SUBJECTIVE: Patient seen and examined OBJECTIVE: Vital Signs Period Temp Pulse Resp BP Sys/Humphrey Pulse Ox Last 24 Hr 97.9 F-98.6 F 77-125 16-18 155-208/79-133 97-99 PHYSICAL EXAM GENERAL: The patient is awake, alert, and fully oriented, in no acute distress. HEAD: Normal with no signs of trauma. EYES: PERRL, extraocular movements intact, sclera anicteric, conjunctiva clear. ENT: Ears normal, nares patent, oropharynx clear without exudates, moist mucous membranes. NECK: Trachea midline, full range of motion, supple. LUNGS: Breath sounds equal, clear to auscultation bilaterally, no wheezes, no crackles, no accessory muscle use. HEART: Regular rate and rhythm, S1, S2 without murmur, rub or gallop. ABDOMEN: Soft, nontender, nondistended, normoactive bowel sounds, no guarding, no rebound, no hepatosplenomegaly, no masses. EXTREMITIES: 2+ pulses, warm, well-perfused, no edema. NEUROLOGICAL: Cranial nerves II through XII grossly intact. Normal speech, gait not observed. PSYCH: Normal mood, normal affect. SKIN: Warm, dry, normal turgor, no rashes or lesions noted. LABS Laboratory Results - last 24 hr 03/20/18 03/20/18 03/20/18 12:00 12:00 12:00 WBC 10.3 H RBC 5.56 H Hgb 16.9 H Hct 49.2 H D MCV 88.4 MCH 30.4 MCHC 34.3 RDW 15.1 Plt Count 266 MPV 9.8 Absolute Neuts (auto) 9.3 H Neutrophils % 90.1 H Lymphocytes % 8.3 Monocytes % 1.1 L Eosinophils % 0.1 Basophils % 0.4 Nucleated RBC % 0 PT with INR 11.50 INR 0.97 Sodium 136 Potassium 3.5 Chloride 101 Carbon Dioxide 27 Anion Gap 9 BUN 18 Creatinine 1.2 Creat Clearance w eGFR 46.14 POC Glucometer Random Glucose 165 H Calcium 10.0 Phosphorus 2.0 L Magnesium 1.9 Total Bilirubin 0.4 AST 18 ALT 37 Alkaline Phosphatase 166 H Creatine Kinase 67 Troponin I < 0.02 Total Protein 8.4 H Albumin 4.2 Lipase 80 Blood Type Antibody Screen 03/20/18 03/20/18 03/21/18 12:00 22:00 03:16 WBC RBC Hgb Hct MCV MCH MCHC RDW Plt Count MPV Absolute Neuts (auto) Neutrophils % Lymphocytes % Monocytes % Eosinophils % Basophils % Nucleated RBC % PT with INR INR Sodium Potassium Chloride Carbon Dioxide Anion Gap BUN Creatinine Creat Clearance w eGFR POC Glucometer [phone] Random Glucose Calcium Phosphorus Magnesium Total Bilirubin AST ALT Alkaline Phosphatase Creatine Kinase Troponin I Total Protein Albumin Lipase Blood Type O POSITIVE O POSITIVE Antibody Screen Negative HOSPITAL COURSE: Date of Admission:03/20/18 Date of Discharge: 03/21/18 Minutes to complete discharge: 39 Discharge Summary Reason For Visit: HTN/VOMITING Current Active Problems Vomiting (Acute) HTN (hypertension) (Chronic) Condition: Stable - Instructions Disposition: AGAINST MEDICAL ADVICE - Home Medications Comprehensive Discharge Medication List: Ambulatory Orders Acetaminophen [Pain Relief] 650 mg PO Q4H PRN 03/20/18 Amlodipine Besylate [Norvasc -] 10 mg PO DAILY 03/20/18 Chlordiazepoxide [Librium -] 10 mg PO Q6HPO 03/20/18 Chlordiazepoxide [Librium -] 15 mg PO Q6H 03/20/18 Chlordiazepoxide [Librium -] 25 mg PO Q4H PRN 03/20/18 Cyclobenzaprine HCl 5 mg PO DAILY PRN 03/20/18 Guaifenesin Dm [Robitussin Dm -] 10 ml PO Q6H PRN 03/20/18 Hydrochlorothiazide [Hctz -] 25 mg PO DAILY 03/20/18 Loperamide HCl [Loperamide] 4 mg PO Q4H PRN 03/20/18 Mag Hydrox/Al Hydrox/Simeth [Mylanta *Suspension*] 30 ml PO Q6H PRN 03/20/18 Magnesium Citrate [Citroma -] 195 ml PO ONCE PRN 03/20/18 Magnesium Hydrox 2400MG/30Ml [Milk of Magnesia -] 30 ml PO DAILY PRN 03/20/18 Melatonin 5 mg PO HS PRN 03/20/18 Menthol/Phenol [Cepastat Lozenge -] 1 each MM Q4H PRN 03/20/18 Methadone [Dolophine -] 5 mg PO DAILY 03/20/18 Methadone [Dolophine -] 10 mg PO DAILY 03/20/18 Methadone [Dolophine -] 15 mg PO DAILY 03/20/18 Nicotine Patch [Nicoderm Patch -] 1 patch TD DAILY 03/20/18 Nicotine Polacrilex [Nicorette Gum -] 4 mg BUC Q2H PRN 03/20/18 Pnv No.121/Iron/Folic Acid [ Multivitamin Tablet] 1 each PO DAILY Pseudoephedrine/Acetaminophen [Nexafed Sinus Press-Pain Tab] 1 each PO TID PRN 03/20/18 Thiamine HCl [Vitamin B-1] 100 mg PO HS 03/20/18 hydrOXYzine PAMOATE [Vistaril -] 50 mg PO Q4H PRN 03/20/18 Problem List - Problems (1) Vomiting Code(s): R11.10 - VOMITING, UNSPECIFIED (2) HTN (hypertension) Code(s): I10 - ESSENTIAL (PRIMARY) HYPERTENSION Qualifiers: (3) Acute bilateral low back pain Code(s): M54.5 - LOW BACK PAIN Qualifiers: (4) Nicotine dependence Code(s): F17.200 - NICOTINE DEPENDENCE, UNSPECIFIED, UNCOMPLICATED Qualifiers: This patient is new to me today: Yes Date on this admission: 03/21/18 Emergency Visit: Yes ED Registration Date: 03/20/18 Care time: The patient presented to the Emergency Department on the above date and was hospitalized for further evaluation of their emergent condition. Critical Care patient: No - Discharge Referral Referred to [facility] No
[2018-03-21] MEDS ORDERED: METHADONE HCL 5 MG TABLET PO SCH (10:00)
[2018-03-21] MEDS ORDERED: amLODIPine BESYLATE 10 MG TABLET (FP) PO SCH (10:00)
[2018-03-21] MEDS ORDERED: HYDROCHLOROTHIAZIDE 25 MG TABLET (FP) PO SCH (10:00)
--- NOTE | 2018-03-21 12:19 | EKG ---
Test Reason : Blood Pressure : / mmHG Vent. Rate : 086 BPM Atrial Rate : 086 BPM P-R Int : 160 ms QRS Dur : 082 ms QT Int : 388 ms P-R-T Axes : 072 -21 043 degrees QTc Int : 464 ms SINUS RHYTHM WITH SINUS ARRHYTHMIA WITH FUSION COMPLEXES OTHERWISE NORMAL ECG Confirmed by MD CORAL, HAO ([id number]) on 03/21/2018 12:19:30 PM Referred By: Confirmed By:HAO MONCADA MD
--- NOTE | 2018-03-21 13:52 | DS ---
Physical Examination Vital Signs: Vital Signs Temperature 97.9 F 03/21/18 04:50 Pulse Rate 88 03/21/18 04:50 Respiratory Rate 18 03/21/18 04:50 Blood Pressure 155/92 03/21/18 04:50 O2 Sat by Pulse Oximetry (%) 99 03/21/18 04:50 Labs: CBC, BMP 03/20/18 12:00 03/20/18 12:00 Discharge Summary Reason For Visit: HTN/VOMITING Condition: Stable - Instructions Disposition: AGAINST MEDICAL ADVICE - Home Medications Comprehensive Discharge Medication List: Ambulatory Orders Acetaminophen [Pain Relief] 650 mg PO Q4H PRN 03/20/18 Amlodipine Besylate [Norvasc -] 10 mg PO DAILY 03/20/18 Chlordiazepoxide [Librium -] 10 mg PO Q6HPO 03/20/18 Chlordiazepoxide [Librium -] 15 mg PO Q6H 03/20/18 Chlordiazepoxide [Librium -] 25 mg PO Q4H PRN 03/20/18 Cyclobenzaprine HCl 5 mg PO DAILY PRN 03/20/18 Guaifenesin Dm [Robitussin Dm -] 10 ml PO Q6H PRN 03/20/18 Hydrochlorothiazide [Hctz -] 25 mg PO DAILY 03/20/18 Loperamide HCl [Loperamide] 4 mg PO Q4H PRN 03/20/18 Mag Hydrox/Al Hydrox/Simeth [Mylanta *Suspension*] 30 ml PO Q6H PRN 03/20/18 Magnesium Citrate [Citroma -] 195 ml PO ONCE PRN 03/20/18 Magnesium Hydrox 2400MG/30Ml [Milk of Magnesia -] 30 ml PO DAILY PRN 03/20/18 Melatonin 5 mg PO HS PRN 03/20/18 Menthol/Phenol [Cepastat Lozenge -] 1 each MM Q4H PRN 03/20/18 Methadone [Dolophine -] 5 mg PO DAILY 03/20/18 Methadone [Dolophine -] 10 mg PO DAILY 03/20/18 Methadone [Dolophine -] 15 mg PO DAILY 03/20/18 Nicotine Patch [Nicoderm Patch -] 1 patch TD DAILY 03/20/18 Nicotine Polacrilex [Nicorette Gum -] 4 mg BUC Q2H PRN 03/20/18 Pnv No.121/Iron/Folic Acid [ Multivitamin Tablet] 1 each PO DAILY Pseudoephedrine/Acetaminophen [Nexafed Sinus Press-Pain Tab] 1 each PO TID PRN 03/20/18 Thiamine HCl [Vitamin B-1] 100 mg PO HS 03/20/18 hydrOXYzine PAMOATE [Vistaril -] 50 mg PO Q4H PRN 03/20/18 AMA
== END 2018-03-21 04:00 | disposition left against medical advice (07) | DRG 770 ==
LOC: JER 10:48 → JERBED 17:03 → OBSVTOIN 18:53
PROVIDERS: ADMIT Internal Medicine; ATTEND Internal Medicine
DX: F10.230 Alcohol dependence with withdrawal, uncomplicated (principal); R11.10 Vomiting, unspecified; I10 Essential (primary) hypertension; M54.5 Low back pain; E11.9 Type 2 diabetes mellitus without complications; F17.210 Nicotine dependence, cigarettes, uncomplicated; F14.20 Cocaine dependence, uncomplicated; F11.23 Opioid dependence with withdrawal; F16.10 Hallucinogen abuse, uncomplicated; F19.94 Other psychoactive substance use, unspecified with psychoactive substance-induced mood disorder; M19.90 Unspecified osteoarthritis, unspecified site
CPT/HCPCS: 36415; 70450-TC; 71045-TC-FY; 74175-TC; 80053; 82550; 82962; 83690; 83735; 84100; 84484; 85025; 85610; 86850; 86900; 86901; 93005; 93010; 99284-25; G0378; J7030

== ENCOUNTER 2018-04-22 14:57 | Inpatient (IN) | payer OTHER ==
[2018-04-22 18:46] VITALS: BMI 25.7
--- NOTE | 2018-04-22 19:36 | HP ---
COWS - Scale Resting Pulse: 0= [place] 80 or Below Sweatin= Chills/Flushing Restless Observation: 3= Extraneous Movement Pupil Size: 1= Pupils >than Normal Bone or Joint Aches: 2= Severe Diffuse Aches Runny Nose/ Eye Tearin= Runny Nose/Eyes GI Upset > 30mins: 2= Nausea/Diarrhea Tremor Observation: 2= Slight Tremor Visible Yawning Observation: 1= 1-2x During Session Anxiety or Irritability: 2=Irritable/Anxious Goose Flesh Skin: 0=Smooth Skin COWS Score: 16 CIWA Score Nausea/Vomitin Muscle Tremors: 2 Anxiety: 2 Agitation: 2 Paroxysmal Sweats: 1-Minimal Palms Moist Orientation: 0-Oriented Tacttile Disturbances: 1-Very Mild Itch/Numbness Auditory Disturbances: 1-Very Mild Visual Disturbances: 0-None Headache: 2-Mild CIWA-Ar Total Score: 13 - Admission Criteria [facility]ASAS Guidelines: Admission for Medically Managed Detox: Requires at least one of the followin. CIWA greater than 12 2. Seizures within the past 24 hours 3. Delirium tremens within the past 24 hours 4. Hallucinations within the past 24 hours 5. Acute intervention needed for co occurring medical disorder 6. Acute intervention needed for co occurring psychiatric disorder 7. Severe withdrawal that cannot be handled at a lower level of care (continued vomiting, continued diarrhea, abnormal vital signs) requiring intravenous medication and/or fluids 8. Patient presents the following: CIWA greater than 12 Admission Criteria Met: Admission criteria met Admission ROS [facility] Chief Complaint: i need help to stop using heroin,alcohol,cocaine,marijuana Allergies/Adverse Reactions: Allergies Allergy/AdvReac Type Severity Reaction Status Date / Time sulfamethoxazole Allergy Mild Hives Verified 03/17/18 13:27 [From Bactrim] trimethoprim [From Bactrim] Allergy Mild Hives Verified 03/17/18 13:27 History of Present Illness: this 58 years old female with heroin,alcohol,cocaine,marijuana,dependence seeking detox,withdrawal symptom, last detox [facility] 03/17/18 to 03/20/18 multiple admissions in the past but keep relapsing nicotine 1 pack weight loss longest sobriety 2 years bipolar disorder plan for rehab after detox Exam Limitations: No Limitations - Ebola screening Have you traveled outside of the country in the last 21 days: No (N) Have you had contact with anyone from an Ebola affected area: No Have you been sick,other than usual withdrawal symptoms: No Do you have a fever: No - Review of Systems Constitutional: Chills, Loss of Appetite, Malaise, Night Sweats, Changes in sleep, Weakness, Unintentional Wgt. Loss EENT: reports: Tearing, Nose Congestion Respiratory: reports: No Symptoms reported Cardiac: reports: No Symptoms Reported GI: reports: Nausea, Poor Appetite, Vomiting, Abdominal cramping : reports: No Symptoms Reported Musculoskeletal: reports: Back Pain, Joint Pain, Muscle Pain Integumentary: reports: Dryness Neuro: reports: Headache, Tremors Endocrine: reports: No Symptoms Reported Hematology: reports: No Symptoms Reported Psychiatric: reports: No Sypmtoms Reported, Judgement Intact, Mood/Affect Appropiate, Orientated x3, other (bipolar disorder) Patient History - Patient Medical History Hx Anemia: No Hx Asthma: No Hx Chronic Obstructive Pulmonary Disease (COPD): No Hx Cancer: No Hx Cardiac Disorders: No Hx Congestive Heart Failure: No Hx Hypertension: Yes (non compliant with meds.) Hx Hypercholesterolemia: No Hx Pacemaker: No HX Cerebrovascular Accident: No Hx Seizures: No Hx Dementia: No Hx Diabetes: Yes (Hx of Type II not on meds.) Hx Gastrointestinal Disorders: No Hx Liver Disease: No Hx Genitourinary Disorders: No Hx Sexually Transmitted Disorders: No Hx Renal Disease (ESRD): No Hx Thyroid Disease: No Hx Human Immunodeficiency Virus (HIV): No Hx Hepatitis C: No Hx Depression: Yes Hx Suicide Attempt: No Hx Bipolar Disorder: Yes (ON MED) Hx Schizophrenia: Yes Other Medical History: no sucidal,no homicidal - Patient Surgical History Past Surgical History: Yes Hx Neurologic Surgery: No Hx Cataract Extraction: No Hx Cardiac Surgery: No Hx Lung Surgery: No Hx Breast Surgery: No Hx Breast Biopsy: No Hx Abdominal Surgery: No Hx Appendectomy: No Hx Cholecystectomy: No Hx Genitourinary Surgery: No Hx Section: No Hx Orthopedic Surgery: No Anesthesia Reaction: No - PPD History Previous Implant?: Yes Documented Results: Negative w/proof Date: 03/19/18 Results: 0 mm PPD to be Administered?: No - Reproductive History Last Menstrual Period: 09/02/08 Patient : No - Smoking Cessation Smoking history: Current every day smoker Have you smoked in the past 12 months: Yes Aproximately how many cigarettes per day: 10 Cigars Per Day: 0 Hx Chewing Tobacco Use: No Initiated information on smoking cessation: Yes 'Breaking Loose' booklet given: 04/22/18 - Substances Abused Alcohol Route: Oral Frequency: Daily Amount used: liquor- 2 pints Age of first use: 13 Date of Last Use: 04/21/18 Heroin Route: Inhalation Frequency: Daily Amount used: 10 bags Age of first use: 29 Date of Last Use: 04/22/18 Crack Route: Smoking Frequency: Daily Amount used: 20 bags Age of first use: 19 Date of Last Use: 04/21/18 Marijuana/Hashish Route: Smoking Frequency: 1-2 times per week Amount used: 10$ Age of first use: 19 Date of Last Use: 04/21/18 Family Disease History - Family Disease History Family Disease History: Diabetes: Father, Mother, Sister Admission Physical Exam S - Vital Signs Vital Signs: Vital Signs - 24 hr 04/22/18 04/22/18 18:22 18:44 Temperature 98.6 F 98.6 F Pulse Rate 72 72 Respiratory 18 18 Rate Blood Pressure 123/88 123/88 - Physical General Appearance: Yes: Moderate Distress, Tremorous, Irritable, Sweating, Anxious HEENTM: Yes: Normal ENT Inspection, FATUMA, Pharynx Normal Respiratory: Yes: Lungs Clear, Normal Breath Sounds, No Respiratory Distress Neck: Yes: Within Normal Limits, Supple, Trachea in good position Breast: Yes: Breast Exam Deferred Cardiology: Yes: Within Normal Limits, Regular Rhythm, Regular Rate, S1, S2 Abdominal: Yes: Within Normal Limits, Normal Bowel Sounds, Non Tender, Flat, Soft Genitourinary: Yes: Within Normal Limits Back: Yes: Muscle Spasm Musculoskeletal: Yes: full range of Motion, Back pain, Muscle Pain Extremities: Yes: Tremors Neurological: Yes: 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, Alert, Motor Strength 5/5 Integumentary: Yes: Dry - Diagnostic (1) Opioid dependence with withdrawal Current Visit: No Status: Chronic (2) Bipolar II disorder Current Visit: No Status: Chronic (3) Cannabis dependence, uncomplicated Current Visit: No Status: Chronic (4) Cocaine dependence Current Visit: No Status: Chronic Qualifiers: (5) Nicotine dependence Current Visit: No Status: Chronic Qualifiers: (6) Alcohol dependence with uncomplicated withdrawal Current Visit: No Status: Chronic Cleared for Admission [facility] - Detox or Rehab [facility] Level of Care: Medically Managed Detox Regimen/Protocol: Methadone/Librium [facility] Breath Alcohol Content Breath Alcohol Content: 0.008 Urine Pregancy Test - Result Urine Test Results: Negative- NO Line Present Urine Drug Screen - Results Drug Screen Negative: No Urine Drug Screen Results: THC-Marijuana, TOM-Cocaine, OPI-Opiates, OXY- Oxycodone, FEN-Fentanyl Inpatient Rehab Admission - Rehab Decision to Admit Inpatient rehab admission?: No
[2018-04-22] MEDS ORDERED: ACETAMINOPHEN 325 MG TABLET (FP) PO PRN (19:44)
[2018-04-22] MEDS ORDERED: MAG HYDROX/AL HYDROX/SIMETH 30 ML UNIT-DOSE CUP PO PRN (19:44)
[2018-04-22] MEDS ORDERED: LOPERAMIDE HCL 2 MG CAPSULE PO PRN (19:44)
[2018-04-22] MEDS ORDERED: guaiFENesin/D-METHORPHAN HB 10 ML UNIT-DOSE CUPS PO PRN (19:44)
[2018-04-22] MEDS ORDERED: MAGNESIUM CITRATE 300 ML BOTTLE PO PRN (19:44)
[2018-04-22] MEDS ORDERED: P-EPHED 60MG/TRIPROLIDI 2.5MG TABLET PO PRN (19:44)
[2018-04-22] MEDS ORDERED: MAGNESIUM HYDROX 2400MG/30ML ORAL SUSPENSION 30 ML CUP PO PRN (19:44)
[2018-04-22] MEDS ORDERED: NICOTINE POLACRILEX 2 MG GUM BC PRN (19:44)
[2018-04-22] MEDS ORDERED: chlordiazePOXIDE HCL 25 MG CAPSULE PO PRN (19:44)
[2018-04-22] MEDS ORDERED: MENTHOL/PHENOL 1 EACH UD MM PRN (19:44)
[2018-04-22] MEDS ORDERED: METHADONE HCL 10 MG TABLET (FOR DETOX USE ONLY) PO ONE ×2 (20:00→23:00)
[2018-04-22] MEDS: THIAMINE HCL 100 MG TABLET (FP) PO SCH (22:28)
[2018-04-22] MEDS: chlordiazePOXIDE HCL 25 MG CAPSULE PO SCH (22:29)
[2018-04-22] MEDS: MELATONIN 5 MG TABLETS PO PRN (22:30)
[2018-04-23] MEDS: chlordiazePOXIDE HCL 25 MG CAPSULE PO SCH ×4 (05:20→22:27)
[2018-04-23] MEDS ORDERED: METHADONE HCL 10 MG TABLET (FOR DETOX USE ONLY) PO SCH (10:00)
[2018-04-23] MEDS: amLODIPine BESYLATE 10 MG TABLET (FP) PO SCH (10:20)
[2018-04-23] MEDS: PRENATAL VITAMINS W/ FOLIC ACID TABLET (FP) PO SCH (10:20)
[2018-04-23] MEDS: NICOTINE 21 MG/24 HOURS TOPICAL PATCH TD SCH (10:20)
--- NOTE | 2018-04-23 10:36 | CONSULT ---
[facility] Psychiatric Consult - Data Date of interview: 04/23/18 Admission source: Self-referred Identifying data: Patient is a 58 y/o AA female single, domiciled, unemployed , mother of 5 would not provide information about the source of her survival. She was seen and evaluated bed side due to sedation Substance Abuse History: This is one of multiple admissions to [facility] for this female patient due to frequent relapses on the following chemical substances : heroin, ETOH, cocaine, crack, marijuana. Her last Detox treatment in this unit was in February. Her urine tox was + for marijuana. cocaine, opiates. oxycodone and fentanyl. Refer to addiction counselor note for detailed drug use history Medical History: Her medical history is significant for HTN, Type 2 DM and chronic back pain Psychiatric History: She has a chronic history of mental illness, non coompliance with treatment, she can't recall the last time she took meds, except to say it was a long time ago. She gave a history of past psychiatric hospitalization @ [facility] many years ago. She was diagnosed with Bipolar depression. Her treatment consisted with Seroquel and Gabapentin. Patient appears tired and fatigued and struggled to provide relevant history. She claimed that she heard unknown male voices telling her to do things to herself, she could not elaborate further, could not provide frequency and intensity her detailed history was somewahat vague. She denies visual hallucinations. She denies past history of suicide , she denies intent or plan to harm self , denies homicidal ideation Physical/Sexual Abuse/Trauma History: Patient denied history of abuse Additional Comment: Patient appears sedeated and could not provide relevant history Mental Status Exam - Mental Status Exam Alert and Oriented to: Person Cognitive Function: Impaired Patient Appearance: Disheveled Mood: Depressed Affect: Blunted Patient Behavior: Sedated, Fatigued, Guarded, Distractible Speech Pattern: Delayed, Slurred Voice Loudness: Mildly Loud Thought Process: Circumstantial Thought Disorder: Being Controlled Hallucinations: Auditory Suicidal Ideation: Denies Homicidal Ideation: Denies Insight/Judgement: Impaired Sleep: Poorly Appetite: Fair Muscle strength/Tone: Mild Hypotonicity Gait/Station: Other (gait= not tested) Psychiatric Findings - Problem List ([place] 1, 2,3) (1) Psychosis Current Visit: Yes Status: Acute (2) Acute bilateral low back pain Current Visit: No Status: Chronic Qualifiers: (3) Alcohol dependence with uncomplicated withdrawal Current Visit: No Status: Chronic (4) Bipolar II disorder Current Visit: No Status: Chronic (5) Cannabis dependence, uncomplicated Current Visit: No Status: Chronic (6) Cocaine dependence Current Visit: No Status: Chronic Qualifiers: (7) HTN (hypertension) Current Visit: No Status: Chronic Qualifiers: (8) Nicotine dependence Current Visit: No Status: Chronic Qualifiers: (9) Opioid dependence with withdrawal Current Visit: No Status: Chronic (10) Type II diabetes mellitus Current Visit: No Status: Chronic (11) Substance induced mood disorder Current Visit: No Status: Suspected
[2018-04-23 10:52] LABS: HEMOGLOBIN 14.7 GM/dL (10.7-15.3); MCH 30.5 pg (25.7-33.7); MCHC 34.1 g/dl (32.0-36.0); MEAN CELL VOLUME 89.4 fl (80-96); MEAN PLT VOLUME 10.2 fl (7.5-11.1); PLATELET COUNT 234 K/MM3 (134-434); RBC 4.81 M/mm3 (3.60-5.2); RDW 14.8 % (11.6-15.6); WHITE BLOOD COUNT 5.5 K/mm3 (4.0-10.0)
--- NOTE | 2018-04-23 11:03 | CONSULT ---
Mental Status Exam - Mental Status Exam Additional Comments: Treatment recommendation. Continue Detox treatment. Monitor psychosis and treatment response. Seroquel 100 mg po qhs. Psychiatric Findings - Problem List ([place] 1, 2,3) (1) Psychosis Current Visit: Yes Status: Acute (2) Acute bilateral low back pain Current Visit: No Status: Chronic Qualifiers: (3) Alcohol dependence with uncomplicated withdrawal Current Visit: No Status: Chronic (4) Bipolar II disorder Current Visit: No Status: Chronic (5) Cannabis dependence, uncomplicated Current Visit: No Status: Chronic (6) Cocaine dependence Current Visit: No Status: Chronic Qualifiers: (7) HTN (hypertension) Current Visit: No Status: Chronic Qualifiers: (8) Nicotine dependence Current Visit: No Status: Chronic Qualifiers: (9) Opioid dependence with withdrawal Current Visit: No Status: Chronic (10) Type II diabetes mellitus Current Visit: No Status: Chronic (11) Substance induced mood disorder Current Visit: No Status: Suspected
[2018-04-23 11:10] LABS: ALBUMIN 3.2 g/dl (3.4-5.0); ALK PHOS 158 U/L (45-117); ANION GAP 5 MMOL/L (8-16); BILIRUBIN,TOTAL 0.2 mg/dL (0.2-1); BLOOD UREA NITROGEN 10 mg/dL (7-18); CALCIUM 9.2 mg/dL (8.5-10.1); CHLORIDE 108 mmol/L (98-107); CO2 29 mmol/L (21-32); GLUCOSE,RANDOM 83 mg/dL (74-106); SGOT/AST 17 U/L (15-37); SGPT/ALT 19 U/L (13-61); SODIUM 142 mmol/L (136-145); TOT PROT 6.6 g/dl (6.4-8.2)
--- NOTE | 2018-04-23 16:11 | PN ---
[facility] CIWA - CIWA Score Nausea/Vomitin Muscle Tremors: 4-Moderate,w/Arms Extend Anxiety: 4-Mod. Anxious/Guarded Agitation: 4-Moderately Restless Paroxysmal Sweats: 3 Orientation: 0-Oriented Tacttile Disturbances: 0-None Auditory Disturbances: 0-None Visual Disturbances: 0-None Headache: 0-None Present CIWA-Ar Total Score: 17 [facility] COWS - Scale Resting Pulse: 0= [place] 80 or Below Sweatin= Chills/Flushing Restless Observation: 3= Extraneous Movement Pupil Size: 0= Normal to Room Light Bone or Joint Aches: 2= Severe Diffuse Aches Runny Nose/ Eye Tearin= Runny Nose/Eyes GI Upset > 30mins: 3= Vomiting/Diarrhea Tremor Observation of Outstretched Hands: 2= Slight Tremor Visible Yawning Observation: 0= None Anxiety or Irritability: 2=Irritable/Anxious Goose Flesh Skin: 0=Smooth Skin COWS Score: 15 [facility] Progress Note (SOAP) Subjective: Anxious, sweating, yawning. Requesting ensure instead of glucerna stating that she is no longer diabetic Objective: 04/23/18 16:09 Last Vital Signs Temp Pulse Resp BP Pulse Ox 98.3 F 80 17 145/102 H 04/23/18 10:00 04/23/18 10:00 04/23/18 10:00 04/23/18 10:00 elevated b/p noted (has htn, on norvasc) Laboratory Tests 04/23/18 04/23/18 04/23/18 06:25 07:35 07:35 WBC 5.5 RBC 4.81 Hgb 14.7 Hct 43.0 MCV 89.4 MCH 30.5 MCHC 34.1 RDW 14.8 Plt Count 234 MPV 10.2 Sodium 142 Potassium 4.0 Chloride 108 H Carbon Dioxide 29 Anion Gap 5 L BUN 10 Creatinine 1.0 Creat Clearance w eGFR 56.75 Random Glucose 83 Calcium 9.2 Total Bilirubin 0.2 AST 17 ALT 19 Alkaline Phosphatase 158 H Total Protein 6.6 Albumin 3.2 L RPR Titer Nonreactive Labs reviewed: GFR 56.75 Assessment: 04/23/18 16:10 Withdrawal symptoms Noted with prerenal azotemia and uncontrolled htn Plan: Continue detox Prerenal azotemia: encouraged PO water hydration Repeat BMP on 04/25/18 HTN, uncontrolled: elevated most likely due to withdrawal Continue norvasc 10mg PO daily Start clonidine 0.1mg PO q8hr prn if b/p > 140/90
[2018-04-23] MEDS: cloNIDine HCL 0.1 MG TABLET PO PRN (22:27)
[2018-04-23] MEDS: QUEtiapine FUMARATE 100 MG TABLET (FP) PO SCH (22:27)
[2018-04-23] MEDS: THIAMINE HCL 100 MG TABLET (FP) PO SCH (22:27)
[2018-04-24] MEDS: chlordiazePOXIDE HCL 25 MG CAPSULE PO SCH ×3 (05:54→17:41)
[2018-04-24] MEDS: PRENATAL VITAMINS W/ FOLIC ACID TABLET (FP) PO SCH (10:17)
[2018-04-24] MEDS: METHADONE HCL 5 MG TABLET (FOR DETOX USE ONLY) PO SCH (10:17)
[2018-04-24] MEDS: amLODIPine BESYLATE 10 MG TABLET (FP) PO SCH (10:17)
[2018-04-24] MEDS: NICOTINE 21 MG/24 HOURS TOPICAL PATCH TD SCH (10:18)
--- NOTE | 2018-04-24 11:40 | PN ---
[facility] CIWA - CIWA Score Nausea/Vomitin-No Nausea/No Vomiting Muscle Tremors: 3 Anxiety: 3 Agitation: 3 Paroxysmal Sweats: 3 Orientation: 0-Oriented Tacttile Disturbances: 0-None Auditory Disturbances: 0-None Visual Disturbances: 0-None Headache: 0-None Present CIWA-Ar Total Score: 12 S COWS - Scale Resting Pulse: 0= [place] 80 or Below Sweatin=Flushed/Facial Moisture Restless Observation: 1= Difficult to Sit Still Pupil Size: 0= Normal to Room Light Bone or Joint Aches: 2= Severe Diffuse Aches Runny Nose/ Eye Tearin= Runny Nose/Eyes GI Upset > 30mins: 0= None Tremor Observation of Outstretched Hands: 1= Tremor [place], Not Seen Yawning Observation: 1= 1-2x During Session Anxiety or Irritability: 2=Irritable/Anxious Goose Flesh Skin: 0=Smooth Skin COWS Score: 11 [facility] Progress Note (SOAP) Subjective: agitation sweats body aches interrupted sleep irritable chills Objective: 04/24/18 11:39 Vital Signs Temperature 98.1 F 04/24/18 09:37 Pulse Rate 71 04/24/18 09:37 Respiratory Rate 18 04/24/18 09:37 Blood Pressure 151/96 04/24/18 09:37 O2 Sat by Pulse Oximetry (%) Laboratory Tests 04/23/18 04/23/18 04/23/18 06:25 07:35 07:35 WBC 5.5 RBC 4.81 Hgb 14.7 Hct 43.0 MCV 89.4 MCH 30.5 MCHC 34.1 RDW 14.8 Plt Count 234 MPV 10.2 Sodium 142 Potassium 4.0 Chloride 108 H Carbon Dioxide 29 Anion Gap 5 L BUN 10 Creatinine 1.0 Creat Clearance w eGFR 56.75 Random Glucose 83 Calcium 9.2 Total Bilirubin 0.2 AST 17 ALT 19 Alkaline Phosphatase 158 H Total Protein 6.6 Albumin 3.2 L RPR Titer Nonreactive aaox3 ambulating no acute distress Assessment: 04/24/18 11:39 withdrawal sx Plan: continue detox increase fluids
[2018-04-24] MEDS: QUEtiapine FUMARATE 100 MG TABLET (FP) PO SCH (22:17)
[2018-04-24] MEDS: chlordiazePOXIDE 5 MG CAPSULE PO SCH (22:17)
[2018-04-24] MEDS: THIAMINE HCL 100 MG TABLET (FP) PO SCH (22:17)
[2018-04-24] MEDS: IBUPROFEN 400 MG TABLET (FP) PO PRN (22:18)
[2018-04-25] MEDS: chlordiazePOXIDE 5 MG CAPSULE PO SCH ×3 (05:35→17:40)
[2018-04-25] MEDS: METHADONE HCL 5 MG TABLET (FOR DETOX USE ONLY) PO SCH (10:11)
[2018-04-25] MEDS: amLODIPine BESYLATE 10 MG TABLET (FP) PO SCH (10:11)
[2018-04-25] MEDS: IBUPROFEN 400 MG TABLET (FP) PO PRN (10:11)
[2018-04-25] MEDS: PRENATAL VITAMINS W/ FOLIC ACID TABLET (FP) PO SCH (10:12)
[2018-04-25] MEDS: NICOTINE 21 MG/24 HOURS TOPICAL PATCH TD SCH (10:14)
--- NOTE | 2018-04-25 10:28 | PN ---
[facility] Progress Note (SOAP) Subjective: low back pain sweats irritable Objective: 04/25/18 10:27 Vital Signs Temperature 6.6 F L 04/25/18 09:38 Pulse Rate 70 04/25/18 09:38 Respiratory Rate 18 04/25/18 09:38 Blood Pressure 144/94 04/25/18 09:38 O2 Sat by Pulse Oximetry (%) aaox3 ambulating no acute distress Assessment: 04/25/18 10:27 withdrawal sx Plan: continue detox increase fluids lidocaine patch Naprosyn bid baclofen
[2018-04-25] MEDS: NAPROXEN 500 MG TABLET (FP) PO SCH ×2 (10:48→22:23)
[2018-04-25] MEDS ORDERED: LIDOCAINE 5% TOPICAL PATCH TP ONE (11:00)
[2018-04-25] MEDS ORDERED: BACLOFEN 10 MG TABLET (FP) PO ONE (11:00)
[2018-04-25] MEDS: BACLOFEN 10 MG TABLET (FP) PO SCH ×2 (14:17→22:23)
[2018-04-25] MEDS: chlordiazePOXIDE HCL 10 MG CAPSULE PO SCH (22:23)
[2018-04-25] MEDS: THIAMINE HCL 100 MG TABLET (FP) PO SCH (22:23)
[2018-04-25] MEDS: cloNIDine HCL 0.1 MG TABLET PO PRN (22:23)
[2018-04-25] MEDS: QUEtiapine FUMARATE 100 MG TABLET (FP) PO SCH (22:23)
[2018-04-25] MEDS: LIDOCAINE PATCH REMOVAL MC SCH (22:25)
[2018-04-26] MEDS: chlordiazePOXIDE HCL 10 MG CAPSULE PO SCH ×3 (06:30→17:32)
[2018-04-26] MEDS: BACLOFEN 10 MG TABLET (FP) PO SCH ×3 (06:31→22:20)
[2018-04-26] MEDS ORDERED: METHADONE HCL 10 MG TABLET (FOR DETOX USE ONLY) PO SCH (10:00)
[2018-04-26] MEDS: PRENATAL VITAMINS W/ FOLIC ACID TABLET (FP) PO SCH (10:19)
[2018-04-26] MEDS: amLODIPine BESYLATE 10 MG TABLET (FP) PO SCH (10:19)
[2018-04-26] MEDS: NAPROXEN 500 MG TABLET (FP) PO SCH ×2 (10:19→22:20)
[2018-04-26] MEDS: NICOTINE 21 MG/24 HOURS TOPICAL PATCH TD SCH (10:20)
--- NOTE | 2018-04-26 13:53 | PN ---
[facility] Progress Note (SOAP) Subjective: feeling better little anxiety Objective: 04/26/18 13:52 Vital Signs Temperature 98.1 F 04/26/18 13:39 Pulse Rate 79 04/26/18 13:39 Respiratory Rate 16 04/26/18 13:39 Blood Pressure 132/87 04/26/18 13:39 O2 Sat by Pulse Oximetry (%) aaox3 ambulating no acute distress Assessment: 04/26/18 13:52 mild withdrawal sx Plan: continue detox increase fluids d/c in am
[2018-04-26] MEDS: MELATONIN 5 MG TABLETS PO PRN (22:20)
[2018-04-26] MEDS: LIDOCAINE PATCH REMOVAL MC SCH (22:20)
[2018-04-26] MEDS: THIAMINE HCL 100 MG TABLET (FP) PO SCH (22:20)
[2018-04-26] MEDS: QUEtiapine FUMARATE 100 MG TABLET (FP) PO SCH (22:20)
[2018-04-26] MEDS: cloNIDine HCL 0.1 MG TABLET PO PRN (22:20)
[2018-04-27] MEDS: BACLOFEN 10 MG TABLET (FP) PO SCH (05:27)
[2018-04-27] MEDS ORDERED: METHADONE HCL 5 MG TABLET (FOR DETOX USE ONLY) PO SCH (06:00)
--- NOTE | 2018-04-27 09:10 | DS ---
[facility] Detox Discharge Summary Admission Date: 04/22/18 Discharge Date: 04/27/18 - History Present History: Alcohol Dependence, Cannabis Dependence, Cocaine Dependence, Opioid Dependence, Pcp Dependence - Physical Exam Results Vital Signs: Vital Signs Temperature 96.6 F L 04/27/18 07:17 Pulse Rate 71 04/27/18 07:17 Respiratory Rate 18 04/27/18 07:17 Blood Pressure 140/102 H 04/27/18 07:17 O2 Sat by Pulse Oximetry (%) - Treatment Hospital Course: Detox Protocol Followed, Detoxed Safely, Responded well, Discharged Condition Good, Rehab Referral Accepted - Medication Discharge Medications: Ambulatory Orders Amlodipine Besylate [Norvasc -] 10 mg PO DAILY 04/22/18 Quetiapine Fumarate [Seroquel -] 100 mg PO HS 04/22/18 - Diagnosis (1) Psychosis Current Visit: Yes Status: Acute Qualifiers: Schizoaffective disorder type: unspecified (2) Vomiting Current Visit: No Status: Acute (3) Acute bilateral low back pain Current Visit: No Status: Chronic Qualifiers: (4) Alcohol dependence with uncomplicated withdrawal Current Visit: Yes Status: Chronic (5) Bipolar II disorder Current Visit: No Status: Chronic (6) Cannabis dependence, uncomplicated Current Visit: Yes Status: Chronic (7) Cocaine dependence Current Visit: Yes Status: Chronic Qualifiers: Substance use status: uncomplicated (8) HTN (hypertension) Current Visit: Yes Status: Chronic Qualifiers: Hypertension type: essential hypertension (9) Nicotine dependence Current Visit: Yes Status: Chronic Qualifiers: Nicotine product type: cigarettes Substance use status: uncomplicated Qualified Code(s): F17.210 - Nicotine dependence, cigarettes, uncomplicated (10) Non-compliant patient Current Visit: Yes Status: Chronic (11) Opioid dependence with withdrawal Current Visit: Yes Status: Chronic (12) PCP (phencyclidine) abuse Current Visit: Yes Status: Chronic (13) Type II diabetes mellitus Current Visit: Yes Status: Chronic Qualifiers: Diabetes mellitus group home insulin use: unspecified local company intermodal truck driver insulin use status Diabetes mellitus complication status: without complication Qualified Code(s): E11.9 - Type 2 diabetes mellitus without complications (14) Substance induced mood disorder Current Visit: No Status: Suspected - AMA Did Patient Leave Against Medical Advice: No (referred to [facility] )
[2018-04-27 10:13] VITALS: BP 115/77; PULSE 68; TEMP 97.7
[2018-04-27] MEDS: NICOTINE 21 MG/24 HOURS TOPICAL PATCH TD SCH (10:15)
[2018-04-27] MEDS: NAPROXEN 500 MG TABLET (FP) PO SCH (10:15)
[2018-04-27] MEDS: PRENATAL VITAMINS W/ FOLIC ACID TABLET (FP) PO SCH (10:15)
[2018-04-27] MEDS: amLODIPine BESYLATE 10 MG TABLET (FP) PO SCH (10:15)
== END 2018-04-27 10:46 | disposition home or self-care (01) | DRG 773 ==
LOC: YASAS 14:57 → Y6N 19:46
PROVIDERS: ADMIT Surgery; ATTEND Surgery
PROC: HZ2ZZZZ Detoxification Services for Substance Abuse Treatment (ICD-10-PCS; principal; 2018-04-22)
DX: F11.23 Opioid dependence with withdrawal (principal); F10.230 Alcohol dependence with withdrawal, uncomplicated; F14.20 Cocaine dependence, uncomplicated; F12.20 Cannabis dependence, uncomplicated; F16.10 Hallucinogen abuse, uncomplicated; F17.210 Nicotine dependence, cigarettes, uncomplicated; F39 Unspecified mood [affective] disorder; F31.81 Bipolar II disorder; F19.24 Other psychoactive substance dependence with psychoactive substance-induced mood disorder; I10 Essential (primary) hypertension; E11.9 Type 2 diabetes mellitus without complications; M54.5 Low back pain; G89.29 Other chronic pain; R79.89 Other specified abnormal findings of blood chemistry; Z91.19 Patient's noncompliance with other medical treatment and regimen; Z88.2 Allergy status to sulfonamides; Z88.1 Allergy status to other antibiotic agents
CPT/HCPCS: 36415; 80053; 85027; 86593; J0475; J0735

== ENCOUNTER 2018-06-13 12:36 | Inpatient (IN) | payer OTHER ==
[2018-06-13 18:11] VITALS: BMI 25.0
--- NOTE | 2018-06-13 19:37 | HP ---
COWS - Scale Resting Pulse: 1= [place] 81-100 Sweatin= Chills/Flushing Restless Observation: 1= Difficult to Sit Still Pupil Size: 1= Pupils >than Normal Bone or Joint Aches: 2= Severe Diffuse Aches Runny Nose/ Eye Tearin= Runny Nose/Eyes GI Upset > 30mins: 3= Vomiting/Diarrhea Tremor Observation: 1= Tremor [place], Not Seen Yawning Observation: 1= 1-2x During Session Anxiety or Irritability: 2=Irritable/Anxious Goose Flesh Skin: 0=Smooth Skin COWS Score: 15 CIWA Score Nausea/Vomitin Muscle Tremors: 2 Anxiety: 4-Mod. Anxious/Guarded Agitation: 3 Paroxysmal Sweats: 2 Orientation: 0-Oriented Tacttile Disturbances: 2-Mild Itch/Numbness/Burn Auditory Disturbances: 0-None Visual Disturbances: 1-Very Mild Sensitivity Headache: 2-Mild CIWA-Ar Total Score: 19 - Admission Criteria OAS Guidelines: Admission for Medically Managed Detox: Requires at least one of the followin. CIWA greater than 12 2. Seizures within the past 24 hours 3. Delirium tremens within the past 24 hours 4. Hallucinations within the past 24 hours 5. Acute intervention needed for co occurring medical disorder 6. Acute intervention needed for co occurring psychiatric disorder 7. Severe withdrawal that cannot be handled at a lower level of care (continued vomiting, continued diarrhea, abnormal vital signs) requiring intravenous medication and/or fluids 8. Patient presents the following: CIWA greater than 12 Admission Criteria Met: Admission criteria met Admission ROS [facility] Chief Complaint: withdrawal symptoms Allergies/Adverse Reactions: Allergies Allergy/AdvReac Type Severity Reaction Status Date / Time sulfamethoxazole Allergy Mild Hives Verified 03/17/18 13:27 [From Bactrim] trimethoprim [From Bactrim] Allergy Mild Hives Verified 03/17/18 13:27 History of Present Illness: Patient is a 58 years old female with heroin (inhale), alcohol, cocaine, marijuana, dependence seeking detox d/t withdrawal symptoms. [facility] -[facility]18, this one multiple admissions, but keeps relapsing. Longest sobriety 2 years Psych: depression, bipolar disorder Denies SI/HI Denies hx of seizures, blackouts or overdose plan for rehab after detox Exam Limitations: No Limitations - Ebola screening Have you traveled outside of the country in the last 21 days: No Have you had contact with anyone from an Ebola affected area: No - Review of Systems Constitutional: Chills, Loss of Appetite, Changes in sleep, Other (restless) EENT: reports: No Symptoms Reported Respiratory: reports: No Symptoms reported Cardiac: reports: No Symptoms Reported GI: reports: Diarrhea Musculoskeletal: reports: Back Pain Integumentary: reports: Dryness, Pruritus Neuro: reports: Headache Endocrine: reports: Increased Thirst Hematology: reports: No Symptoms Reported Psychiatric: reports: Orientated x3, Anxious Other Systems: Reviewed and Negative Patient History - Patient Medical History Hx Anemia: No Hx Asthma: No Hx Chronic Obstructive Pulmonary Disease (COPD): No Hx Cancer: No Hx Cardiac Disorders: No Hx Congestive Heart Failure: No Hx Hypertension: Yes (non compliant with meds.) Hx Hypercholesterolemia: No Hx Pacemaker: No HX Cerebrovascular Accident: No Hx Seizures: No Hx Dementia: No Hx Diabetes: Yes (Hx of Type II not on meds.) Hx Gastrointestinal Disorders: No Hx Liver Disease: No Hx Genitourinary Disorders: No Hx Sexually Transmitted Disorders: No Hx Renal Disease (ESRD): No Hx Thyroid Disease: No Hx Human Immunodeficiency Virus (HIV): No Hx Hepatitis C: No Hx Depression: Yes Hx Suicide Attempt: No Hx Bipolar Disorder: Yes (ON MED) Hx Schizophrenia: Yes - Patient Surgical History Past Surgical History: Yes Hx Neurologic Surgery: No Hx Cataract Extraction: No Hx Cardiac Surgery: No Hx Lung Surgery: No Hx Breast Surgery: No Hx Breast Biopsy: No Hx Abdominal Surgery: No Hx Appendectomy: No Hx Cholecystectomy: No Hx Genitourinary Surgery: No Hx Section: No Hx Orthopedic Surgery: No Anesthesia Reaction: No - PPD History Previous Implant?: No Documented Results: Negative w/o proof Date: 03/19/18 Results: 0 mm PPD to be Administered?: No - Reproductive History Last Menstrual Period: 09/02/08 - Smoking Cessation Smoking history: Current every day smoker Have you smoked in the past 12 months: Yes Aproximately how many cigarettes per day: 10 Cigars Per Day: 0 Hx Chewing Tobacco Use: No Initiated information on smoking cessation: Yes 'Breaking Loose' booklet given: 06/13/18 - Substance & Tx. History Hx Alcohol Use: Yes Hx Substance Use: Yes Substance Use Type: Alcohol, Cocaine, Heroin Hx Substance Use Treatment: Yes (detox [facility] 04/22/18 -04/27/18) - Substances abused Heroin Substance route: Inhalation Frequency: Daily Amount used: 7-8 bags Age of first use: 29 Date of last use: 06/13/18 Alcohol Substance route: Oral Frequency: Daily Amount used: Vodka 1 pint, + beer 2 x 40 oz Age of first use: 13 Date of last use: 06/13/18 Family Disease History - Family Disease History Family Disease History: Diabetes: Father, Mother, Sister Admission Physical Exam [facility] - Vital Signs Vital Signs: Vital Signs - 24 hr 06/13/18 17:55 Temperature 98.4 F Pulse Rate 84 Respiratory 18 Rate Blood Pressure 134/97 - Physical General Appearance: Yes: Disheveled, Moderate Distress, Irritable, Anxious, Other (restkess) HEENTM: Yes: EOMI, Hearing grossly Normal, Normal ENT Inspection, Normocephalic , Normal Voice, Pharynx Normal, Scleral Ictenus R, Rhinorrhea Respiratory: Yes: Chest Non-Tender, Lungs Clear, Normal Breath Sounds, No Respiratory Distress, No Accessory Muscle Use Neck: Yes: Within Normal Limits Breast: Yes: Breast Exam Deferred Cardiology: Yes: Regular Rhythm, Regular Rate Abdominal: Yes: Normal Bowel Sounds, Non Tender, Soft, Protuberent Genitourinary: Yes: Within Normal Limits Back: Yes: Normal Inspection Musculoskeletal: Yes: full range of Motion, Gait Steady, Pelvis Stable, Back pain Extremities: Yes: Normal Capillary Refill, Normal Inspection, Normal Range of Motion Neurological: Yes: mate chief II-XII NML intact, Fully Oriented, Alert, Motor Strength 5/5, Depressed Affect Integumentary: Yes: Normal Color, Dry (ashen skin), Warm Lymphatic: Yes: Within Normal Limits - Diagnostic (1) Acute bilateral low back pain Current Visit: Yes Status: Chronic Qualifiers: (2) Alcohol dependence with uncomplicated withdrawal Current Visit: Yes Status: Chronic (3) HTN (hypertension) Current Visit: Yes Status: Chronic Qualifiers: Hypertension type: essential hypertension (4) Nicotine dependence Current Visit: Yes Status: Chronic Qualifiers: Nicotine product type: cigarettes Substance use status: uncomplicated Qualified Code(s): F17.210 - Nicotine dependence, cigarettes, uncomplicated (5) Non-compliant patient Current Visit: Yes Status: Chronic (6) Opioid dependence with withdrawal Current Visit: Yes Status: Chronic Cleared for Admission [facility] - Detox or Rehab [facility] Level of Care: Medically Managed Detox Regimen/Protocol: Methadone/Librium Breathalyzer - Breathalyzer Breathalyzer: 0.036 POC Urine test - Test device test lot number: [id number] Expiration date: 10/22/19 - Control test control: Yes - Result Urine Test Results: Negative - NO line present Urine Drug Screen - Test Device Lot number: [id number] Expiration date: 01/21/20 - Control Is test valid?: Yes - Results Drug screen NEGATIVE: No Urine drug screen results: THC-Marijuana, TOM-Cocaine, FEN-Fentanyl, MOP-Opiates , BZO-Benzodiazepines Inpatient Rehab Admission - Rehab Decision to Admit Inpatient rehab admission?: No
[2018-06-13] MEDS ORDERED: chlordiazePOXIDE HCL 25 MG CAPSULE PO PRN (19:38)
[2018-06-13] MEDS ORDERED: MAGNESIUM HYDROX 2400MG/30ML ORAL SUSPENSION 30 ML CUP PO PRN (19:38)
[2018-06-13] MEDS ORDERED: ONDANSETRON *ODT* 4 MG TABLET SL PRN (19:38)
[2018-06-13] MEDS ORDERED: MAG HYDROX/AL HYDROX/SIMETH 30 ML UNIT-DOSE CUP PO PRN (19:38)
[2018-06-13] MEDS ORDERED: ACETAMINOPHEN 325 MG TABLET (FP) PO PRN ×2 (19:38)
[2018-06-13] MEDS ORDERED: MENTHOL/PHENOL 1 EACH UD MM PRN (19:38)
[2018-06-13] MEDS ORDERED: P-EPHED 60MG/TRIPROLIDI 2.5MG TABLET PO PRN (19:38)
[2018-06-13] MEDS ORDERED: guaiFENesin 200 MG/10 ML 10 ML UNIT-DOSE CUPS PO PRN (19:38)
[2018-06-13] MEDS ORDERED: IBUPROFEN 400 MG TABLET (FP) PO PRN (19:38)
[2018-06-13] MEDS ORDERED: MAGNESIUM CITRATE 300 ML BOTTLE PO PRN (19:38)
[2018-06-13] MEDS ORDERED: BISMUTH SUBSALICYLATE 524 MG/30 ML UD PO PRN (19:38)
[2018-06-13] MEDS ORDERED: NICOTINE POLACRILEX 2 MG GUM BUC PRN (19:38)
[2018-06-13] MEDS ORDERED: METHADONE HCL 10 MG TABLET (FOR DETOX USE ONLY) PO ONE ×2 (20:30→23:00)
[2018-06-13] MEDS ORDERED: QUEtiapine FUMARATE 50 MG TABLET PO ONE (22:00)
[2018-06-13] MEDS: chlordiazePOXIDE HCL 25 MG CAPSULE PO SCH (22:07)
[2018-06-13] MEDS: THIAMINE HCL 100 MG TABLET (FP) PO SCH (22:08)
[2018-06-13] MEDS: METHOCARBAMOL 500 MG TABLET PO PRN (22:18)
[2018-06-13] MEDS: cloNIDine HCL 0.1 MG TABLET PO PRN (22:18)
[2018-06-13] MEDS: MINERAL OIL/PETROLAT/WATER TOPICAL CREAM 113 GM JAR TP SCH (23:45)
[2018-06-14] MEDS: chlordiazePOXIDE HCL 25 MG CAPSULE PO SCH ×4 (06:22→22:19)
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
[2018-06-14] MEDS ORDERED: METHADONE HCL 10 MG TABLET (FOR DETOX USE ONLY) PO ONE (10:00)
[2018-06-14] MEDS: MINERAL OIL/PETROLAT/WATER TOPICAL CREAM 113 GM JAR TP SCH ×2 (10:11→22:19)
[2018-06-14] MEDS: PRENATAL VITAMINS W/ FOLIC ACID TABLET (FP) PO SCH (10:12)
[2018-06-14] MEDS: NICOTINE 14 MG/24 HOURS TOPICAL PATCH TD SCH (10:12)
[2018-06-14 12:11] LABS: HEMATOCRIT 37.4 % (32.4-45.2); HEMOGLOBIN 12.6 GM/dL (10.7-15.3); MCH 30.1 pg (25.7-33.7); MCHC 33.6 g/dl (32.0-36.0); MEAN CELL VOLUME 89.6 fl (80-96); MEAN PLT VOLUME 9.6 fl (7.5-11.1); PLATELET COUNT 236 K/MM3 (134-434); RBC 4.18 M/mm3 (3.60-5.2); RDW 15.5 % (11.6-15.6); WHITE BLOOD COUNT 5.8 K/mm3 (4.0-10.0)
[2018-06-14 12:15] LABS: ALBUMIN 3.4 g/dl (3.4-5.0); ALK PHOS 144 U/L (45-117); ANION GAP 5 MMOL/L (8-16); BILIRUBIN,TOTAL 0.4 mg/dL (0.2-1); BLOOD UREA NITROGEN 14 mg/dL (7-18); CALCIUM 9.5 mg/dL (8.5-10.1); CHLORIDE 109 mmol/L (98-107); CO2 30 mmol/L (21-32); CREATININE 1.2 mg/dL (0.55-1.3); GLUCOSE,RANDOM 95 mg/dL (74-106); POTASSIUM 3.8 mmol/L (3.5-5.1); SGOT/AST 12 U/L (15-37); SGPT/ALT 16 U/L (13-61); SODIUM 143 mmol/L (136-145); TOT PROT 6.7 g/dl (6.4-8.2)
--- NOTE | 2018-06-14 12:17 | PN ---
[facility] CIWA - CIWA Score Nausea/Vomitin-No Nausea/No Vomiting Muscle Tremors: 3 Anxiety: 3 Agitation: 3 Paroxysmal Sweats: 3 Orientation: 0-Oriented Tacttile Disturbances: 0-None Auditory Disturbances: 0-None Visual Disturbances: 0-None Headache: 0-None Present CIWA-Ar Total Score: 12 [facility] COWS - Scale Resting Pulse: 0= [place] 80 or Below Sweatin= Chills/Flushing Restless Observation: 1= Difficult to Sit Still Pupil Size: 0= Normal to Room Light Bone or Joint Aches: 2= Severe Diffuse Aches Runny Nose/ Eye Tearin= Nasal Congestion GI Upset > 30mins: 0= None Tremor Observation of Outstretched Hands: 2= Slight Tremor Visible Yawning Observation: 2= >3x During Session Anxiety or Irritability: 2=Irritable/Anxious Goose Flesh Skin: 3=Piloerection COWS Score: 14 [facility] Progress Note (SOAP) Subjective: sweat chills tired body aches interrupted sleep Objective: 06/14/18 12:17 Vital Signs Temperature 98.1 F 06/14/18 10:41 Pulse Rate 72 06/14/18 10:41 Respiratory Rate 18 06/14/18 10:41 Blood Pressure 120/85 06/14/18 10:41 O2 Sat by Pulse Oximetry (%) Laboratory Tests 06/14/18 06/14/18 08:45 08:45 WBC 5.8 RBC 4.18 Hgb 12.6 Hct 37.4 MCV 89.6 MCH 30.1 MCHC 33.6 RDW 15.5 Plt Count 236 MPV 9.6 Sodium 143 Potassium 3.8 Chloride 109 H Carbon Dioxide 30 Anion Gap 5 L BUN 14 Creatinine 1.2 Creat Clearance w eGFR 45.98 Random Glucose 95 Calcium 9.5 Total Bilirubin 0.4 AST 12 L ALT 16 Alkaline Phosphatase 144 H Total Protein 6.7 Albumin 3.4 aaox3 ambulating no acute distress Assessment: 06/14/18 12:18 withdrawal sx Plan: continue detox increase fluids
[2018-06-14] MEDS: QUEtiapine FUMARATE 100 MG TABLET (FP) PO SCH (22:19)
[2018-06-14] MEDS: THIAMINE HCL 100 MG TABLET (FP) PO SCH (22:19)
[2018-06-15] MEDS: chlordiazePOXIDE HCL 25 MG CAPSULE PO SCH ×3 (06:17→17:07)
[2018-06-15] MEDS: cloNIDine HCL 0.1 MG TABLET PO PRN (06:17)
[2018-06-15] MEDS ORDERED: METHADONE HCL 5 MG TABLET (FOR DETOX USE ONLY) PO ONE (10:00)
[2018-06-15 10:19] LABS: PH,URINE 6.5 (5.0-8.0); URINE APPEARANCE CLEAR; URINE BILIRUBIN NEGATIVE (NEGATIVE); URINE COLOR YELLOW; URINE GLUCOSE (UA) NEGATIVE (NEGATIVE); URINE KETONE NEGATIVE (NEGATIVE); URINE LEUK ESTERASE NEGATIVE (NEGATIVE); URINE NITRITE NEGATIVE (NEGATIVE); URINE PROTEIN NEGATIVE (NEGATIVE); URINE UROBILINOGEN 0.2 mg/dL (0.2-1.0)
[2018-06-15] MEDS: MINERAL OIL/PETROLAT/WATER TOPICAL CREAM 113 GM JAR TP SCH ×2 (10:22→22:25)
[2018-06-15] MEDS: NICOTINE 14 MG/24 HOURS TOPICAL PATCH TD SCH (10:22)
[2018-06-15] MEDS: PRENATAL VITAMINS W/ FOLIC ACID TABLET (FP) PO SCH (10:23)
[2018-06-15] MEDS: METHOCARBAMOL 500 MG TABLET PO PRN ×2 (10:25→22:26)
--- NOTE | 2018-06-15 12:16 | PN ---
[facility] CIWA - CIWA Score Nausea/Vomitin-No Nausea/No Vomiting Muscle Tremors: 3 Anxiety: 2 Agitation: 2 Paroxysmal Sweats: 1-Minimal Palms Moist Orientation: 0-Oriented Tacttile Disturbances: 0-None Auditory Disturbances: 0-None Visual Disturbances: 0-None Headache: 0-None Present CIWA-Ar Total Score: 8 S COWS - Scale Resting Pulse: 0= [place] 80 or Below Sweatin= Chills/Flushing Restless Observation: 1= Difficult to Sit Still Pupil Size: 0= Normal to Room Light Bone or Joint Aches: 2= Severe Diffuse Aches Runny Nose/ Eye Tearin= Nasal Congestion GI Upset > 30mins: 0= None Tremor Observation of Outstretched Hands: 1= Tremor [place], Not Seen Yawning Observation: 1= 1-2x During Session Anxiety or Irritability: 1=Feels Anxious/Irritable Goose Flesh Skin: 3=Piloerection COWS Score: 11 [facility] Progress Note (SOAP) Subjective: sweats shakes irritable agitation Objective: 06/15/18 12:15 Vital Signs Temperature 97.5 F L 06/15/18 09:15 Pulse Rate 69 06/15/18 09:15 Respiratory Rate 18 06/15/18 09:15 Blood Pressure 122/71 06/15/18 09:15 O2 Sat by Pulse Oximetry (%) Laboratory Tests 06/14/18 06/14/18 06/14/18 08:45 08:45 08:45 WBC 5.8 RBC 4.18 Hgb 12.6 Hct 37.4 MCV 89.6 MCH 30.1 MCHC 33.6 RDW 15.5 Plt Count 236 MPV 9.6 Sodium 143 Potassium 3.8 Chloride 109 H Carbon Dioxide 30 Anion Gap 5 L BUN 14 Creatinine 1.2 Creat Clearance w eGFR 45.98 Random Glucose 95 Calcium 9.5 Total Bilirubin 0.4 AST 12 L ALT 16 Alkaline Phosphatase 144 H Total Protein 6.7 Albumin 3.4 Urine Color Urine Appearance Urine pH Ur Specific [place] Urine Protein Urine Glucose (UA) Urine Ketones Urine Blood Urine Nitrite Urine Bilirubin Urine Urobilinogen Ur Leukocyte Esterase RPR Titer Nonreactive 06/15/18 07:00 WBC RBC Hgb Hct MCV MCH MCHC RDW Plt Count MPV Sodium Potassium Chloride Carbon Dioxide Anion Gap BUN Creatinine Creat Clearance w eGFR Random Glucose Calcium Total Bilirubin AST ALT Alkaline Phosphatase Total Protein Albumin Urine Color Yellow Urine Appearance Clear Urine pH 6.5 D Ur Specific [place] 1.010 Urine Protein Negative Urine Glucose (UA) Negative Urine Ketones Negative Urine Blood Negative Urine Nitrite Negative Urine Bilirubin Negative Urine Urobilinogen 0.2 Ur Leukocyte Esterase Negative RPR Titer aaox3 ambulating no acute distress Assessment: 06/15/18 12:15 withdrawal sx Plan: continue detox increase fluids
[2018-06-15] MEDS: chlordiazePOXIDE HCL 10 MG CAPSULE PO SCH (22:25)
[2018-06-15] MEDS: QUEtiapine FUMARATE 100 MG TABLET (FP) PO SCH (22:25)
[2018-06-15] MEDS: THIAMINE HCL 100 MG TABLET (FP) PO SCH (22:54)
[2018-06-15] MEDS ORDERED: chlordiazePOXIDE HCL 10 MG CAPSULE PO PRN (23:00)
[2018-06-16] MEDS: chlordiazePOXIDE HCL 10 MG CAPSULE PO SCH ×4 (05:51→22:28)
[2018-06-16] MEDS ORDERED: cloNIDine HCL 0.1 MG TABLET PO ONE (06:27)
--- NOTE | 2018-06-16 06:29 | HP ---
COWS - Scale Resting Pulse: 1= [place] 81-100 Sweatin= Chills/Flushing Restless Observation: 1= Difficult to Sit Still Pupil Size: 1= Pupils >than Normal Bone or Joint Aches: 2= Severe Diffuse Aches Runny Nose/ Eye Tearin= Runny Nose/Eyes GI Upset > 30mins: 3= Vomiting/Diarrhea Tremor Observation: 1= Tremor [place], Not Seen Yawning Observation: 1= 1-2x During Session Anxiety or Irritability: 2=Irritable/Anxious Goose Flesh Skin: 0=Smooth Skin COWS Score: 15 CIWA Score Nausea/Vomitin-No Nausea/No Vomiting Muscle Tremors: 3 Anxiety: 2 Agitation: 2 Paroxysmal Sweats: 1-Minimal Palms Moist Orientation: 0-Oriented Tacttile Disturbances: 0-None Auditory Disturbances: 0-None Visual Disturbances: 0-None Headache: 0-None Present CIWA-Ar Total Score: 8 - Admission Criteria OASAS Guidelines: Admission for Medically Managed Detox: Requires at least one of the followin. CIWA greater than 12 2. Seizures within the past 24 hours 3. Delirium tremens within the past 24 hours 4. Hallucinations within the past 24 hours 5. Acute intervention needed for co occurring medical disorder 6. Acute intervention needed for co occurring psychiatric disorder 7. Severe withdrawal that cannot be handled at a lower level of care (continued vomiting, continued diarrhea, abnormal vital signs) requiring intravenous medication and/or fluids 8. Admission ROS [facility] Allergies/Adverse Reactions: Allergies Allergy/AdvReac Type Severity Reaction Status Date / Time sulfamethoxazole Allergy Mild Hives Verified 03/17/18 13:27 [From Bactrim] trimethoprim [From Bactrim] Allergy Mild Hives Verified 03/17/18 13:27 - Ebola screening Have you traveled outside of the country in the last 21 days: No Have you had contact with anyone from an Ebola affected area: No Patient History - Patient Medical History Hx Anemia: No Hx Asthma: No Hx Chronic Obstructive Pulmonary Disease (COPD): No Hx Cancer: No Hx Cardiac Disorders: No Hx Congestive Heart Failure: No Hx Hypertension: Yes (non compliant with meds.) Hx Hypercholesterolemia: No Hx Pacemaker: No HX Cerebrovascular Accident: No Hx Seizures: No Hx Dementia: No Hx Diabetes: Yes (Hx of Type II not on meds.) Hx Gastrointestinal Disorders: No Hx Liver Disease: No Hx Genitourinary Disorders: No Hx Sexually Transmitted Disorders: No Hx Renal Disease (ESRD): No Hx Thyroid Disease: No Hx Human Immunodeficiency Virus (HIV): No Hx Hepatitis C: No Hx Depression: Yes Hx Suicide Attempt: No Hx Bipolar Disorder: Yes (ON MED) Hx Schizophrenia: Yes - Patient Surgical History Past Surgical History: Yes Hx Neurologic Surgery: No Hx Cataract Extraction: No Hx Cardiac Surgery: No Hx Lung Surgery: No Hx Breast Surgery: No Hx Breast Biopsy: No Hx Abdominal Surgery: No Hx Appendectomy: No Hx Cholecystectomy: No Hx Genitourinary Surgery: No Hx Section: No Hx Orthopedic Surgery: No Anesthesia Reaction: No - PPD History Previous Implant?: No Documented Results: Negative w/o proof Date: 03/19/18 Results: 0 mm - Reproductive History Last Menstrual Period: 09/02/08 Patient : No - Smoking Cessation Smoking history: Current every day smoker Have you smoked in the past 12 months: Yes Aproximately how many cigarettes per day: 10 Cigars Per Day: 0 Hx Chewing Tobacco Use: No Initiated information on smoking cessation: Yes - Substances abused Heroin Substance route: Inhalation Frequency: Daily Amount used: 7-8 bags Age of first use: 29 Date of last use: 06/13/18 Alcohol Substance route: Oral Frequency: Daily Amount used: Vodka 1 pint, + beer 2 x 40 oz Age of first use: 13 Date of last use: 06/13/18 Family Disease History - Family Disease History Family Disease History: Diabetes: Father, Mother, Sister Admission Physical Exam [facility] - Vital Signs Vital Signs: Vital Signs - 24 hr 06/15/18 06/15/18 06/15/18 09:15 14:50 17:29 Temperature 97.5 F L 97.7 F 97.5 F L Pulse Rate 69 71 65 Respiratory 18 18 16 Rate Blood Pressure 122/71 143/99 164/107 H 06/15/18 06/16/18 21:57 03:30 Temperature 97.9 F Pulse Rate 75 Respiratory 18 18 Rate Blood Pressure 149/61 Breathalyzer - Breathalyzer Breathalyzer: 0.036 POC Urine test - Test device test lot number: [id number] Expiration date: 10/22/19 - Control test control: Yes - Result Urine Test Results: Negative - NO line present Urine Drug Screen - Test Device Lot number: [id number] Expiration date: 01/21/20 - Control Is test valid?: Yes - Results Drug screen NEGATIVE: No Urine drug screen results: THC-Marijuana, TOM-Cocaine, FEN-Fentanyl, MOP-Opiates , BZO-Benzodiazepines
--- NOTE | 2018-06-16 06:33 | PN ---
S Progress Note Note: Patient's blood pressure is B/P 153/96. Patient is asymptomatic Vital Signs Temperature 97.3 F L 06/16/18 06:00 Pulse Rate 65 06/16/18 06:00 Respiratory Rate 18 06/16/18 06:00 Blood Pressure 153/96 06/16/18 06:00 O2 Sat by Pulse Oximetry (%) Action: Clonidine 0.1mg tablet oral ordered
[2018-06-16] MEDS ORDERED: METHADONE HCL 10 MG TABLET (FOR DETOX USE ONLY) PO ONE (10:00)
[2018-06-16] MEDS: PRENATAL VITAMINS W/ FOLIC ACID TABLET (FP) PO SCH (10:11)
[2018-06-16] MEDS: NICOTINE 14 MG/24 HOURS TOPICAL PATCH TD SCH (10:12)
[2018-06-16] MEDS: MINERAL OIL/PETROLAT/WATER TOPICAL CREAM 113 GM JAR TP SCH ×2 (10:12→22:28)
--- NOTE | 2018-06-16 11:44 | PN ---
[facility] CIWA - CIWA Score Nausea/Vomitin-No Nausea/No Vomiting Muscle Tremors: None Anxiety: 1-Mildly Anxious Agitation: 1-Slight > Activity Paroxysmal Sweats: 1-Minimal Palms Moist Orientation: 0-Oriented Tacttile Disturbances: 0-None Auditory Disturbances: 0-None Visual Disturbances: 0-None Headache: 0-None Present CIWA-Ar Total Score: 3 S COWS - Scale Resting Pulse: 0= [place] 80 or Below Sweatin= Chills/Flushing Restless Observation: 1= Difficult to Sit Still Pupil Size: 0= Normal to Room Light Bone or Joint Aches: 0= None Runny Nose/ Eye Tearin= None GI Upset > 30mins: 0= None Tremor Observation of Outstretched Hands: 0= None Yawning Observation: 0= None Anxiety or Irritability: 2=Irritable/Anxious Goose Flesh Skin: 0=Smooth Skin COWS Score: 4 [facility] Progress Note (SOAP) Subjective: anxiety some sweats Objective: 06/16/18 11:36 Vital Signs Temperature 98.0 F 06/16/18 09:25 Pulse Rate 66 06/16/18 09:25 Respiratory Rate 18 06/16/18 09:25 Blood Pressure 138/85 06/16/18 09:25 O2 Sat by Pulse Oximetry (%) aaox3 ambulating no acute distress Assessment: 06/16/18 11:37 mild withdrawal sx Plan: continue detox increase fluids d/c in am
[2018-06-16] MEDS: THIAMINE HCL 100 MG TABLET (FP) PO SCH (22:28)
[2018-06-16] MEDS: QUEtiapine FUMARATE 100 MG TABLET (FP) PO SCH (22:28)
[2018-06-17] MEDS ORDERED: METHADONE HCL 5 MG TABLET (FOR DETOX USE ONLY) PO ONE (06:00)
[2018-06-17] MEDS ORDERED: cloNIDine HCL 0.1 MG TABLET PO ONE (07:12)
--- NOTE | 2018-06-17 07:15 | PN ---
[facility] Progress Note Note: Patient's blood pressure this morning is B/P 173/103. Patient is asymptomatic Vital Signs Temperature 97.3 F L 06/17/18 07:02 Pulse Rate 68 06/17/18 07:02 Respiratory Rate 16 06/17/18 07:02 Blood Pressure 173/103 H 06/17/18 07:02 O2 Sat by Pulse Oximetry (%) Action: Clonidine 0.1mg tablet oral ordered
--- NOTE | 2018-06-17 09:32 | DS ---
[facility] Detox Discharge Summary Admission Date: 06/13/18 Discharge Date: 06/17/18 - History Present History: Alcohol Dependence, Cannabis Dependence, Cocaine Dependence, Opioid Dependence - Physical Exam Results Vital Signs: Vital Signs Temperature 97.3 F L 06/17/18 07:02 Pulse Rate 68 06/17/18 07:02 Respiratory Rate 16 06/17/18 07:02 Blood Pressure 173/103 H 06/17/18 07:02 O2 Sat by Pulse Oximetry (%) - Treatment Hospital Course: Detox Protocol Followed, Detoxed Safely, Responded well, Discharged Condition Good, Rehab Referral Accepted - Medication Discharge Medications: Ambulatory Orders Amlodipine Besylate [Norvasc -] 10 mg PO DAILY #30 tablet 04/27/18 Quetiapine Fumarate [Seroquel] 100 mg PO HS #30 tablet 04/27/18 - Diagnosis (1) Substance-induced anxiety disorder Current Visit: Yes Status: Chronic (2) Substance-induced sleep disorder Current Visit: Yes Status: Acute (3) Acute bilateral low back pain Current Visit: Yes Status: Chronic Qualifiers: (4) Alcohol dependence with uncomplicated withdrawal Current Visit: Yes Status: Chronic (5) Bipolar II disorder Current Visit: Yes Status: Chronic (6) HTN (hypertension) Current Visit: Yes Status: Chronic Qualifiers: Hypertension type: essential hypertension (7) Nicotine dependence Current Visit: Yes Status: Chronic Qualifiers: Nicotine product type: cigarettes Substance use status: uncomplicated Qualified Code(s): F17.210 - Nicotine dependence, cigarettes, uncomplicated (8) Opioid dependence with withdrawal Current Visit: Yes Status: Chronic (9) Psychosis Current Visit: No Status: Acute Qualifiers: Schizoaffective disorder type: unspecified (10) Vomiting Current Visit: No Status: Acute (11) Bipolar II disorder Current Visit: No Status: Chronic (12) Cannabis dependence, uncomplicated Current Visit: Yes Status: Chronic (13) Cocaine dependence Current Visit: Yes Status: Chronic Qualifiers: Substance use status: uncomplicated (14) PCP (phencyclidine) abuse Current Visit: Yes Status: Chronic (15) Type II diabetes mellitus Current Visit: No Status: Chronic Qualifiers: Diabetes mellitus property officer insulin use: unspecified property officer insulin use status Diabetes mellitus complication status: without complication Qualified Code(s): E11.9 - Type 2 diabetes mellitus without complications (16) Substance induced mood disorder Current Visit: No Status: Suspected - AMA Did Patient Leave Against Medical Advice: No (referred to inpatient rehab.)
[2018-06-17 09:54] VITALS: BP 154/80; PULSE 65; TEMP 97.9
[2018-06-17] MEDS: NICOTINE 14 MG/24 HOURS TOPICAL PATCH TD SCH (09:59)
[2018-06-17] MEDS: MINERAL OIL/PETROLAT/WATER TOPICAL CREAM 113 GM JAR TP SCH (09:59)
[2018-06-17] MEDS: PRENATAL VITAMINS W/ FOLIC ACID TABLET (FP) PO SCH (09:59)
[2018-06-17] MEDS: chlordiazePOXIDE HCL 10 MG CAPSULE PO SCH (10:00)
== END 2018-06-17 10:22 | disposition home or self-care (01) | DRG 773 ==
LOC: YASAS 12:36 → Y6N 20:17
PROVIDERS: ADMIT Surgery; ATTEND Surgery
PROC: HZ2ZZZZ Detoxification Services for Substance Abuse Treatment (ICD-10-PCS; principal; 2018-06-13)
DX: F11.23 Opioid dependence with withdrawal (principal); F10.230 Alcohol dependence with withdrawal, uncomplicated; F14.20 Cocaine dependence, uncomplicated; G89.29 Other chronic pain; F16.10 Hallucinogen abuse, uncomplicated; F17.210 Nicotine dependence, cigarettes, uncomplicated; F31.81 Bipolar II disorder; F19.280 Other psychoactive substance dependence with psychoactive substance-induced anxiety disorder; F19.24 Other psychoactive substance dependence with psychoactive substance-induced mood disorder; F19.282 Other psychoactive substance dependence with psychoactive substance-induced sleep disorder; F29 Unspecified psychosis not due to a substance or known physiological condition; I10 Essential (primary) hypertension; M54.5 Low back pain; R11.10 Vomiting, unspecified; E11.9 Type 2 diabetes mellitus without complications; Z79.4 Long term (current) use of insulin
CPT/HCPCS: 36415; 80053; 81003; 82962; 85027; 86593; J0735

== ENCOUNTER 2018-11-05 20:58 | Inpatient (IN) | payer OTHER ==
[2018-11-05 21:30] VITALS: BMI 24.3
--- NOTE | 2018-11-05 22:10 | HP ---
COWS - Scale Resting Pulse: 0= [place] 80 or Below Sweatin=Flushed/Facial Moisture Restless Observation: 1= Difficult to Sit Still Pupil Size: 0= Normal to Room Light Bone or Joint Aches: 4=Acute Joint/Muscle Pain Runny Nose/ Eye Tearin= Runny Nose/Eyes GI Upset > 30mins: 0= None Tremor Observation: 2= Slight Tremor Visible Yawning Observation: 0= None Anxiety or Irritability: 2=Irritable/Anxious Goose Flesh Skin: 3=Piloerection COWS Score: 16 CIWA Score Nausea/Vomitin Muscle Tremors: 3 Anxiety: 4-Mod. Anxious/Guarded Agitation: 3 Paroxysmal Sweats: 2 Orientation: 0-Oriented Tacttile Disturbances: 0-None Auditory Disturbances: 0-None Visual Disturbances: 0-None Headache: 3-Moderate CIWA-Ar Total Score: 17 - Admission Criteria OASAS Guidelines: Admission for Medically Managed Detox: Requires at least one of the followin. CIWA greater than 12 2. Seizures within the past 24 hours 3. Delirium tremens within the past 24 hours 4. Hallucinations within the past 24 hours 5. Acute intervention needed for co occurring medical disorder 6. Acute intervention needed for co occurring psychiatric disorder 7. Severe withdrawal that cannot be handled at a lower level of care (continued vomiting, continued diarrhea, abnormal vital signs) requiring intravenous medication and/or fluids 8. Admission ROS [facility] Chief Complaint: Heroin and alcohol withdrawal symptoms Allergies/Adverse Reactions: Allergies Allergy/AdvReac Type Severity Reaction Status Date / Time sulfamethoxazole Allergy Mild Hives Verified 11/05/18 21:14 [From Bactrim] trimethoprim [From Bactrim] Allergy Mild Hives Verified 11/05/18 21:14 History of Present Illness: 58 years old female with a long history of heroin and alcohol withdrawal symptoms ( patient reports 30 years) ids seeking admission to detox. Patient reports that her last detox was 2 years ago and she recently relapsed. She reports of 2 years of sobriety. She has history of depression and anxiety. she denies suicide attempt and suicidal ideation at this time Exam Limitations: No Limitations - Ebola screening Have you traveled outside of the country in the last 21 days: No (N) Have you had contact with anyone from an Ebola affected area: No Do you have a fever: No - Review of Systems Constitutional: Chills, Loss of Appetite, Malaise, Night Sweats EENT: reports: No Symptoms Reported Respiratory: reports: No Symptoms reported Cardiac: reports: No Symptoms Reported GI: reports: No Symptoms Reported, Nausea, Poor Appetite, Poor Fluid Intake, Abdominal cramping : reports: No Symptoms Reported Musculoskeletal: reports: Back Pain Integumentary: reports: No Symptoms Reported Neuro: reports: Tremors Endocrine: reports: No Symptoms Reported Hematology: reports: No Symptoms Reported, Anemia Psychiatric: reports: Anxious Other Systems: Reviewed and Negative Patient History - Patient Medical History Hx Anemia: No Hx Asthma: No Hx Chronic Obstructive Pulmonary Disease (COPD): No Hx Cancer: No Hx Cardiac Disorders: No Hx Congestive Heart Failure: No Hx Hypertension: Yes (Norvasc) Hx Hypercholesterolemia: No Hx Pacemaker: No HX Cerebrovascular Accident: No Hx Seizures: No Hx Dementia: No Hx Diabetes: No Hx Gastrointestinal Disorders: No Hx Liver Disease: No Hx Genitourinary Disorders: No Hx Sexually Transmitted Disorders: No Hx Renal Disease (ESRD): No Hx Thyroid Disease: No Hx Human Immunodeficiency Virus (HIV): No Hx Hepatitis C: No Hx Depression: Yes (Seroquel) Hx Suicide Attempt: No Hx Bipolar Disorder: Yes (ON MED) Hx Schizophrenia: Yes - Patient Surgical History Past Surgical History: Yes Hx Neurologic Surgery: No Hx Cataract Extraction: No Hx Cardiac Surgery: No Hx Lung Surgery: No Hx Breast Surgery: No Hx Breast Biopsy: No Hx Abdominal Surgery: No Hx Appendectomy: No Hx Cholecystectomy: No Hx Genitourinary Surgery: No Hx Section: No Hx Orthopedic Surgery: No Anesthesia Reaction: No - PPD History Previous Implant?: Yes Documented Results: Negative w/o proof Implanted On Prior R Admission?: Yes Date: 03/19/18 Results: 0 mm PPD to be Administered?: No - Reproductive History Patient is a Female of Child Bearing Age (11 -55 yrs old): Yes Last Menstrual Period: 09/02/08 Patient : No - Smoking Cessation Smoking history: Current every day smoker Have you smoked in the past 12 months: Yes Aproximately how many cigarettes per day: 10 Cigars Per Day: 0 Hx Chewing Tobacco Use: No Initiated information on smoking cessation: Yes 'Breaking Loose' booklet given: 11/05/18 - Substance & Tx. History Hx Alcohol Use: Yes Hx Substance Use: Yes Substance Use Type: Alcohol, Cocaine, Heroin Hx Substance Use Treatment: Yes - Substances abused Heroin Substance route: Inhalation Frequency: Daily Amount used: 8 to 10 bags Age of first use: 29 Date of last use: 11/05/18 Alcohol Substance route: Oral Frequency: Daily Amount used: quart of vodka, few 40 ounces of beer Age of first use: 13 Date of last use: 11/05/18 Family Disease History - Family Disease History Family Disease History: Diabetes: Father, Mother, Sister Admission Physical Exam [facility] - Vital Signs Vital Signs: Vital Signs - 24 hr 11/05/18 21:13 Temperature 97.6 F Pulse Rate 62 Respiratory 16 Rate Blood Pressure 200/132 H - Physical General Appearance: Yes: Moderate Distress, Tremorous, Anxious HEENTM: Yes: Within Normal Limits, Normocephalic, Normal Voice, FATUMA Respiratory: Yes: Lungs Clear, Normal Breath Sounds, No Respiratory Distress Neck: Yes: Supple, Trachea in good position Breast: Yes: Breast Exam Deferred Cardiology: Yes: Regular Rhythm, Regular Rate Abdominal: Yes: Within Normal Limits, Normal Bowel Sounds, Soft Genitourinary: Yes: Within Normal Limits Back: Yes: Normal Inspection Musculoskeletal: Yes: Back pain, Muscle Pain Extremities: Yes: Tremors Neurological: Yes: Within Normal Limits, Alert, Normal Mood/Affect Integumentary: Yes: Within Normal Limits, Warm Lymphatic: Yes: Within Normal Limits - Diagnostic (1) Anxiety Current Visit: Yes Status: Acute (2) Vomiting Current Visit: No Status: Chronic (3) Alcohol dependence with uncomplicated withdrawal Current Visit: Yes Status: Acute (4) HTN (hypertension) Current Visit: Yes Status: Chronic Qualifiers: Hypertension type: essential hypertension Qualified Code(s): I10 - Essential (primary) hypertension (5) Nicotine dependence Current Visit: Yes Status: Acute Qualifiers: Nicotine product type: cigarettes Substance use status: in withdrawal Qualified Code(s): F17.213 - Nicotine dependence, cigarettes, with withdrawal Cleared for Admission [facility] - Detox or Rehab [facility] Level of Care: Medically Managed Detox Regimen/Protocol: Methadone/Librium, Not Applicable Breathalyzer - Breathalyzer Breathalyzer: 0.005 POC Urine test - Test device test lot number: [id number] Expiration date: 10/22/19 - Control test control: Yes Urine Drug Screen - Test Device Lot number: [id number] Expiration date: 07/21/20 - Control Is test valid?: Yes - Results Drug screen NEGATIVE: No Urine drug screen results: THC-Marijuana, TOM-Cocaine, MOP-Opiates Inpatient Rehab Admission - Rehab Decision to Admit Inpatient rehab admission?: No
[2018-11-05] MEDS ORDERED: MELATONIN 5 MG TABLETS PO PRN (22:22)
[2018-11-05] MEDS ORDERED: BISMUTH SUBSALICYLATE 524 MG/30 ML UD PO PRN (22:22)
[2018-11-05] MEDS ORDERED: hydrOXYzine PAMOATE 25 MG CAPSULE (FP) PO PRN (22:22)
[2018-11-05] MEDS ORDERED: IBUPROFEN 400 MG TABLET (FP) PO PRN (22:22)
[2018-11-05] MEDS ORDERED: chlordiazePOXIDE HCL 25 MG CAPSULE PO PRN (22:22)
[2018-11-05] MEDS ORDERED: MAGNESIUM CITRATE 300 ML BOTTLE PO PRN (22:22)
[2018-11-05] MEDS ORDERED: MAG HYDROX/AL HYDROX/SIMETH 30 ML UNIT-DOSE CUP PO PRN (22:22)
[2018-11-05] MEDS ORDERED: MENTHOL/PHENOL 1 EACH UD MM PRN (22:22)
[2018-11-05] MEDS ORDERED: MAGNESIUM HYDROX 2400MG/30ML ORAL SUSPENSION 30 ML CUP PO PRN (22:22)
[2018-11-05] MEDS ORDERED: ACETAMINOPHEN 325 MG TABLET (FP) PO PRN ×2 (22:22)
[2018-11-05] MEDS ORDERED: METHADONE HCL 10 MG TABLET (FOR DETOX USE ONLY) PO ONE (22:55)
[2018-11-05] MEDS: chlordiazePOXIDE HCL 25 MG CAPSULE PO SCH (23:35)
[2018-11-05] MEDS: cloNIDine HCL 0.1 MG TABLET PO PRN (23:36)
[2018-11-06] MEDS: chlordiazePOXIDE HCL 25 MG CAPSULE PO SCH ×4 (05:50→22:50)
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
[2018-11-06] MEDS ORDERED: METHADONE HCL 10 MG TABLET (FOR DETOX USE ONLY) ONE (09:05)
[2018-11-06] MEDS ORDERED: METHADONE HCL 5 MG TABLET (FOR DETOX USE ONLY) ONE (09:06)
[2018-11-06 09:58] LABS: HEMATOCRIT 42.2 % (32.4-45.2); HEMOGLOBIN 13.7 GM/dL (10.7-15.3); MCH 28.5 pg (25.7-33.7); MCHC 32.4 g/dl (32.0-36.0); MEAN CELL VOLUME 87.8 fl (80-96); MEAN PLT VOLUME 10.6 fl (7.5-11.1); PLATELET COUNT 237 K/MM3 (134-434); RBC 4.81 M/mm3 (3.60-5.2); RDW 15.1 % (11.6-15.6); WHITE BLOOD COUNT 6.5 K/mm3 (4.0-10.0)
[2018-11-06] MEDS ORDERED: METHADONE (DETOX) 20 MG, METHADONE (DETOX) 5 MG PO ONE (10:00)
[2018-11-06 10:06] LABS: BILIRUBIN,TOTAL 0.3 mg/dL (0.2-1); BLOOD UREA NITROGEN 11.5 mg/dL (7-18); CALCIUM 8.9 mg/dL (8.5-10.1); CREATININE 1.1 mg/dL (0.55-1.3); POTASSIUM 3.6 mmol/L (3.5-5.1); TOT PROT 6.1 g/dl (6.4-8.2)
[2018-11-06] MEDS: amLODIPine BESYLATE 10 MG TABLET (FP) PO SCH (10:16)
[2018-11-06] MEDS: PRENATAL VITAMINS W/ FOLIC ACID TABLET (FP) PO SCH (10:16)
--- NOTE | 2018-11-06 10:18 | EKG ---
Test Reason : Blood Pressure : / mmHG Vent. Rate : 059 BPM Atrial Rate : 059 BPM P-R Int : 156 ms QRS Dur : 084 ms QT Int : 416 ms P-R-T Axes : 052 001 014 degrees QTc Int : 411 ms SINUS BRADYCARDIA POSSIBLE LEFT ATRIAL ENLARGEMENT BORDERLINE ECG WHEN COMPARED WITH ECG OF 20-MAR-2018 11:48, VENT. RATE HAS DECREASED Confirmed by DEEPALI MIJARES MD ([id number]) on 11/06/2018 10:17:55 AM Referred By: Chon Purdy Confirmed By:DEEPALI MIJARES MD
--- NOTE | 2018-11-06 14:01 | PN ---
S CIWA - CIWA Score Nausea/Vomitin-No Nausea/No Vomiting Muscle Tremors: 3 Anxiety: 2 Agitation: 3 Paroxysmal Sweats: 2 Orientation: 0-Oriented Tacttile Disturbances: 0-None Auditory Disturbances: 0-None Visual Disturbances: 0-None Headache: 0-None Present CIWA-Ar Total Score: 10 BHS COWS - Scale Resting Pulse: 0= [place] 80 or Below Sweatin= Chills/Flushing Restless Observation: 1= Difficult to Sit Still Pupil Size: 0= Normal to Room Light Bone or Joint Aches: 1= Mild Discomfort Runny Nose/ Eye Tearin= Nasal Congestion GI Upset > 30mins: 0= None Tremor Observation of Outstretched Hands: 2= Slight Tremor Visible Yawning Observation: 1= 1-2x During Session Anxiety or Irritability: 2=Irritable/Anxious Goose Flesh Skin: 0=Smooth Skin COWS Score: 9 BHS Progress Note (SOAP) Subjective: sweats shakes body aches interrupted sleep irritable Objective: 11/06/18 10:00 Vital Signs Temperature 97.5 F 11/06/18 10:00 Pulse Rate 63 11/06/18 10:00 Respiratory Rate 18 11/06/18 10:00 Blood Pressure 140/92 11/06/18 10:00 O2 Sat by Pulse Oximetry (%) Laboratory Tests 11/06/18 11/06/18 11/06/18 07:30 07:30 07:30 WBC 6.5 RBC 4.81 Hgb 13.7 Hct 42.2 MCV 87.8 MCH 28.5 MCHC 32.4 RDW 15.1 Plt Count 237 MPV 10.6 D Sodium 141 Potassium 3.6 Chloride 106 Carbon Dioxide 27 Anion Gap 7 L BUN 11.5 Creatinine 1.1 Est GFR (CKD-EPI)AfAm 63.64 Est GFR (CKD-EPI)NonAf 54.91 Random Glucose 104 Calcium 8.9 Total Bilirubin 0.3 AST 13 L ALT 29 Alkaline Phosphatase 129 H Total Protein 6.1 L Albumin 3.0 L RPR Titer Nonreactive labs noted aaox3 ambulating no acute distress Assessment: 11/06/18 10:00 withdrawals sx Plan: continue detox increase fluids motrin 800mg tid prn as per pt request
[2018-11-06] MEDS ORDERED: QUEtiapine FUMARATE 100 MG TABLET (FP) PO SCH (22:00)
[2018-11-06] MEDS: THIAMINE HCL 100 MG TABLET (FP) PO SCH (22:50)
[2018-11-06] MEDS: QUEtiapine FUMARATE 200 MG TABLET PO SCH (22:50)
[2018-11-06] MEDS: METHOCARBAMOL 500 MG TABLET PO PRN (22:50)
[2018-11-07] MEDS: chlordiazePOXIDE HCL 25 MG CAPSULE PO SCH ×4 (06:14→22:40)
[2018-11-07] MEDS: METHOCARBAMOL 500 MG TABLET PO PRN (06:14)
[2018-11-07] MEDS: amLODIPine BESYLATE 10 MG TABLET (FP) PO SCH (09:49)
[2018-11-07] MEDS: cloNIDine HCL 0.1 MG TABLET PO PRN (09:49)
[2018-11-07] MEDS: PRENATAL VITAMINS W/ FOLIC ACID TABLET (FP) PO SCH (09:49)
[2018-11-07] MEDS ORDERED: METHADONE HCL 10 MG TABLET (FOR DETOX USE ONLY) PO ONE (10:00)
[2018-11-07] MEDS: IBUPROFEN 400 MG TABLET (FP) PO PRN (12:34)
--- NOTE | 2018-11-07 12:59 | PN ---
[facility] CIWA - CIWA Score Nausea/Vomitin-No Nausea/No Vomiting Muscle Tremors: 2 Anxiety: 2 Agitation: 3 Paroxysmal Sweats: 2 Orientation: 0-Oriented Tacttile Disturbances: 0-None Auditory Disturbances: 0-None Visual Disturbances: 0-None Headache: 0-None Present CIWA-Ar Total Score: 9 BHS COWS - Scale Resting Pulse: 0= [place] 80 or Below Sweatin= Chills/Flushing Restless Observation: 1= Difficult to Sit Still Pupil Size: 0= Normal to Room Light Bone or Joint Aches: 2= Severe Diffuse Aches Runny Nose/ Eye Tearin= Runny Nose/Eyes GI Upset > 30mins: 0= None Tremor Observation of Outstretched Hands: 1= Tremor [place], Not Seen Yawning Observation: 1= 1-2x During Session Anxiety or Irritability: 1=Feels Anxious/Irritable Goose Flesh Skin: 0=Smooth Skin COWS Score: 9 [facility] Progress Note (SOAP) Subjective: sweats shakes interrupted sleep body aches irritable Objective: 11/07/18 12:58 Vital Signs Temperature 97.4 F L 11/07/18 09:30 Pulse Rate 75 11/07/18 09:30 Respiratory Rate 18 11/07/18 09:30 Blood Pressure 155/106 H 11/07/18 09:30 O2 Sat by Pulse Oximetry (%) Laboratory Tests 11/06/18 11/06/18 11/06/18 07:30 07:30 07:30 WBC 6.5 RBC 4.81 Hgb 13.7 Hct 42.2 MCV 87.8 MCH 28.5 MCHC 32.4 RDW 15.1 Plt Count 237 MPV 10.6 D Sodium 141 Potassium 3.6 Chloride 106 Carbon Dioxide 27 Anion Gap 7 L BUN 11.5 Creatinine 1.1 Est GFR (CKD-EPI)AfAm 63.64 Est GFR (CKD-EPI)NonAf 54.91 Random Glucose 104 Calcium 8.9 Total Bilirubin 0.3 AST 13 L ALT 29 Alkaline Phosphatase 129 H Total Protein 6.1 L Albumin 3.0 L RPR Titer Nonreactive labs noted aaox3 ambulating no acute distress Assessment: 11/07/18 12:58 withdrawal sx Plan: continue detox increase fluids motrin 800mg prn
[2018-11-07] MEDS: QUEtiapine FUMARATE 200 MG TABLET PO SCH (22:40)
[2018-11-07] MEDS: THIAMINE HCL 100 MG TABLET (FP) PO SCH (22:41)
[2018-11-08] MEDS ORDERED: chlordiazePOXIDE HCL 10 MG CAPSULE PO PRN
[2018-11-08] MEDS: chlordiazePOXIDE HCL 10 MG CAPSULE PO SCH ×4 (07:14→22:29)
[2018-11-08] MEDS ORDERED: METHADONE HCL 10 MG TABLET (FOR DETOX USE ONLY) ONE (09:04)
[2018-11-08] MEDS ORDERED: METHADONE HCL 5 MG TABLET (FOR DETOX USE ONLY) ONE (09:04)
[2018-11-08] MEDS ORDERED: METHADONE (DETOX) 10 MG, METHADONE (DETOX) 5 MG PO ONE (10:00)
[2018-11-08] MEDS: PRENATAL VITAMINS W/ FOLIC ACID TABLET (FP) PO SCH (10:36)
[2018-11-08] MEDS: amLODIPine BESYLATE 10 MG TABLET (FP) PO SCH (10:36)
--- NOTE | 2018-11-08 12:27 | PN ---
[facility] CIWA - CIWA Score Nausea/Vomitin-No Nausea/No Vomiting Muscle Tremors: 2 Anxiety: 1-Mildly Anxious Agitation: 1-Slight > Activity Paroxysmal Sweats: 1-Minimal Palms Moist Orientation: 0-Oriented Tacttile Disturbances: 0-None Auditory Disturbances: 0-None Visual Disturbances: 0-None Headache: 0-None Present CIWA-Ar Total Score: 5 BHS COWS - Scale Resting Pulse: 0= [place] 80 or Below Sweatin= Chills/Flushing Restless Observation: 0= Sits Still Pupil Size: 0= Normal to Room Light Bone or Joint Aches: 2= Severe Diffuse Aches Runny Nose/ Eye Tearin= Nasal Congestion GI Upset > 30mins: 0= None Tremor Observation of Outstretched Hands: 1= Tremor [place], Not Seen Yawning Observation: 2= >3x During Session Anxiety or Irritability: 1=Feels Anxious/Irritable Goose Flesh Skin: 0=Smooth Skin COWS Score: 8 S Progress Note (SOAP) Subjective: body aches sweats irritable agitation Objective: 11/08/18 12:26 Vital Signs Temperature 97.7 F 11/08/18 09:23 Pulse Rate 66 11/08/18 09:23 Respiratory Rate 18 11/08/18 09:23 Blood Pressure 141/90 11/08/18 09:23 O2 Sat by Pulse Oximetry (%) aaox3 ambulating no acute distress Assessment: 11/08/18 12:26 withdrawals Plan: continue detox increase fluids
[2018-11-08] MEDS: QUEtiapine FUMARATE 200 MG TABLET PO SCH (22:28)
[2018-11-08] MEDS: IBUPROFEN 400 MG TABLET (FP) PO PRN (22:29)
[2018-11-09] MEDS: THIAMINE HCL 100 MG TABLET (FP) PO SCH ×2 (00:06→22:27)
[2018-11-09] MEDS: chlordiazePOXIDE HCL 10 MG CAPSULE PO SCH ×2 (06:41→17:21)
[2018-11-09] MEDS ORDERED: METHADONE HCL 10 MG TABLET (FOR DETOX USE ONLY) PO ONE (10:00)
[2018-11-09] MEDS: amLODIPine BESYLATE 10 MG TABLET (FP) PO SCH (11:18)
[2018-11-09] MEDS: PRENATAL VITAMINS W/ FOLIC ACID TABLET (FP) PO SCH (11:18)
--- NOTE | 2018-11-09 13:16 | PN ---
[facility] CIWA - CIWA Score Nausea/Vomitin-Mild Nausea/No Vomiting Muscle Tremors: 1-None Visible, but [place] Anxiety: 1-Mildly Anxious Agitation: 1-Slight > Activity Paroxysmal Sweats: No Perspiration Orientation: 0-Oriented Tacttile Disturbances: 0-None Auditory Disturbances: 0-None Visual Disturbances: 0-None Headache: 1-Very Mild CIWA-Ar Total Score: 5 BHS Progress Note (SOAP) Subjective: alert,interrupted sleep,.anxious Objective: 11/09/18 13:15 Vital Signs Temperature 97.9 F 11/09/18 09:32 Pulse Rate 74 11/09/18 09:32 Respiratory Rate 18 11/09/18 09:32 Blood Pressure 131/86 11/09/18 09:32 O2 Sat by Pulse Oximetry (%) Assessment: 11/09/18 13:15 withdrawal symptom Plan: continue detox librium regimen,discharge in am
[2018-11-09] MEDS: QUEtiapine FUMARATE 200 MG TABLET PO SCH (22:27)
[2018-11-10] MEDS ORDERED: chlordiazePOXIDE HCL 10 MG CAPSULE PO ONE (05:00)
[2018-11-10] MEDS ORDERED: METHADONE HCL 5 MG TABLET (FOR DETOX USE ONLY) PO ONE (06:00)
[2018-11-10 08:00] VITALS: BP 139/88; PULSE 78; TEMP 98
--- NOTE | 2018-11-10 09:04 | DS ---
[facility] Detox Discharge Summary Admission Date: 11/05/18 Discharge Date: 11/10/18 - History Present History: Alcohol Dependence, Cannabis Dependence, Cocaine Dependence, Opioid Dependence, Pcp Dependence - Physical Exam Results Vital Signs: Vital Signs Temperature 98 F 11/10/18 07:59 Pulse Rate 78 11/10/18 07:59 Respiratory Rate 18 11/10/18 07:59 Blood Pressure 139/88 11/10/18 07:59 O2 Sat by Pulse Oximetry (%) Pertinent Admission Physical Exam Findings: pt arrived in withdrawals Laboratory Tests 11/06/18 11/06/18 11/06/18 07:30 07:30 07:30 WBC 6.5 RBC 4.81 Hgb 13.7 Hct 42.2 MCV 87.8 MCH 28.5 MCHC 32.4 RDW 15.1 Plt Count 237 MPV 10.6 D Sodium 141 Potassium 3.6 Chloride 106 Carbon Dioxide 27 Anion Gap 7 L BUN 11.5 Creatinine 1.1 Est GFR (CKD-EPI)AfAm 63.64 Est GFR (CKD-EPI)NonAf 54.91 Random Glucose 104 Calcium 8.9 Total Bilirubin 0.3 AST 13 L ALT 29 Alkaline Phosphatase 129 H Total Protein 6.1 L Albumin 3.0 L RPR Titer Nonreactive today pt is aaox3 ambulating no acute distress no s/s of withdrawals - Treatment Hospital Course: Detox Protocol Followed, Detoxed Safely, Responded well, Discharged Condition Good, Rehab Referral Accepted Patient has Accepted a Rehab Referral to: pt declined rehab; referral provided - Medication Discharge Medications: Ambulatory Orders Amlodipine Besylate [Norvasc -] 10 mg PO DAILY #30 tablet 04/27/18 Cyclobenzaprine HCl 5 mg PO HS 11/05/18 Quetiapine Fumarate [Seroquel] 200 mg PO HS 11/05/18 - Diagnosis (1) Alcohol dependence with uncomplicated withdrawal Current Visit: Yes Status: Chronic (2) Anxiety Current Visit: Yes Status: Chronic (3) Substance induced mood disorder Current Visit: Yes Status: Chronic (4) HTN (hypertension) Current Visit: Yes Status: Chronic Qualifiers: Hypertension type: essential hypertension Qualified Code(s): I10 - Essential (primary) hypertension (5) Nicotine dependence Current Visit: Yes Status: Chronic Qualifiers: Nicotine product type: cigarettes Substance use status: uncomplicated Qualified Code(s): F17.210 - Nicotine dependence, cigarettes, uncomplicated (6) Opioid dependence with withdrawal Current Visit: Yes Status: Chronic (7) Substance-induced sleep disorder Current Visit: No Status: Acute (8) Acute bilateral low back pain Current Visit: Yes Status: Chronic Qualifiers: Sciatica presence: unspecified whether sciatica present Qualified Code(s): M54.5 - Low back pain (9) Bipolar II disorder Current Visit: No Status: Chronic (10) Cannabis dependence, uncomplicated Current Visit: Yes Status: Chronic (11) Cocaine dependence Current Visit: Yes Status: Chronic Qualifiers: Substance use status: uncomplicated (12) PCP (phencyclidine) abuse Current Visit: Yes Status: Chronic (13) Substance-induced anxiety disorder Current Visit: No Status: Chronic (14) Type II diabetes mellitus Current Visit: Yes Status: Chronic Qualifiers: Diabetes mellitus remote computer terminal operator insulin use: unspecified alf insulin use status Diabetes mellitus complication status: without complication Qualified Code(s): E11.9 - Type 2 diabetes mellitus without complications (15) Substance induced mood disorder Current Visit: No Status: Suspected - AMA Did Patient Leave Against Medical Advice: No
== END 2018-11-10 09:58 | disposition home or self-care (01) | DRG 773 ==
LOC: YASAS 20:58 → Y6N 22:44
PROVIDERS: ADMIT Surgery; ATTEND Surgery
PROC: HZ2ZZZZ Detoxification Services for Substance Abuse Treatment (ICD-10-PCS; principal; 2018-11-05)
DX: F11.23 Opioid dependence with withdrawal (principal); F10.230 Alcohol dependence with withdrawal, uncomplicated; F14.20 Cocaine dependence, uncomplicated; F16.20 Hallucinogen dependence, uncomplicated; F12.20 Cannabis dependence, uncomplicated; F17.210 Nicotine dependence, cigarettes, uncomplicated; F31.81 Bipolar II disorder; F20.9 Schizophrenia, unspecified; F19.24 Other psychoactive substance dependence with psychoactive substance-induced mood disorder; F19.282 Other psychoactive substance dependence with psychoactive substance-induced sleep disorder; F41.9 Anxiety disorder, unspecified; I10 Essential (primary) hypertension; E11.9 Type 2 diabetes mellitus without complications; Z79.4 Long term (current) use of insulin; M54.5 Low back pain
CPT/HCPCS: 36415; 80053; 85027; 86593; 93005; 93010; J0735

== ENCOUNTER 2020-04-25 16:32 | Inpatient (IN) | payer OTHER ==
[2020-04-25 21:42] VITALS: BMI 25.4
[2020-04-25] MEDS ORDERED: P-EPHED 60MG/TRIPROLIDI 2.5MG TABLET PO PRN (23:21)
[2020-04-25] MEDS ORDERED: MENTHOL/PHENOL 1 EACH UD MM PRN (23:21)
[2020-04-25] MEDS ORDERED: METHADONE HCL 10 MG TABLET (FOR DETOX USE ONLY) PO ONE (23:21)
[2020-04-25] MEDS ORDERED: diazePAM 5 MG TABLET PO PRN (23:21)
[2020-04-25] MEDS ORDERED: ACETAMINOPHEN 325 MG TABLET (FP) PO PRN ×2 (23:21)
[2020-04-25] MEDS ORDERED: MAGNESIUM HYDROX 2400MG/30ML ORAL SUSPENSION 30 ML CUP PO PRN (23:21)
[2020-04-25] MEDS ORDERED: ONDANSETRON *ODT* 4 MG TABLET SL PRN (23:21)
[2020-04-25] MEDS ORDERED: NALOXONE HCL 0.4 MG/ML VIAL IM PRN (23:21)
[2020-04-25] MEDS ORDERED: MAGNESIUM CITRATE 300 ML BOTTLE PO PRN (23:21)
[2020-04-25] MEDS ORDERED: DICYCLOMINE HCL 10 MG CAPSULE PO PRN (23:21)
[2020-04-25] MEDS ORDERED: MAG HYDROX/AL HYDROX/SIMETH 30 ML UNIT-DOSE CUP PO PRN (23:21)
[2020-04-25] MEDS ORDERED: guaiFENesin 200 MG/10 ML 10 ML UNIT-DOSE CUPS PO PRN (23:21)
[2020-04-25] MEDS ORDERED: BISMUTH SUBSALICYLATE 524 MG/30 ML UD PO PRN (23:21)
[2020-04-25] MEDS ORDERED: NICOTINE POLACRILEX 2 MG GUM BUC PRN (23:21)
[2020-04-25] MEDS ORDERED: METHADONE HCL 10 MG TABLET (FOR DETOX USE ONLY) ONE (23:42)
[2020-04-25] MEDS ORDERED: amLODIPine BESYLATE 5 MG TABLET (FP) ONE (23:42)
[2020-04-25] MEDS ORDERED: diazePAM 5 MG TABLET ONE (23:42)
[2020-04-25] MEDS: amLODIPine BESYLATE 10 MG TABLET (FP) PO SCH (23:43)
[2020-04-25] MEDS: diazePAM 5 MG TABLET PO SCH (23:44)
[2020-04-26] MEDS ORDERED: diazePAM 5 MG TABLET ONE ×2 (06:42→10:44)
[2020-04-26] MEDS: diazePAM 5 MG TABLET PO SCH ×4 (06:45→22:49)
[2020-04-26] MEDS ORDERED: METHADONE (DETOX) 20 MG, METHADONE (DETOX) 5 MG PO ONE (10:00)
[2020-04-26 10:25] LABS: HEMATOCRIT 44.2 % (32.4-45.2); HEMOGLOBIN 14.9 GM/dL (10.7-15.3); MCH 29.9 pg (25.7-33.7); MCHC 33.7 g/dl (32.0-36.0); MEAN CELL VOLUME 88.6 fl (80-96); MEAN PLT VOLUME 9.6 fl (7.5-11.1); PLATELET COUNT 233 K/MM3 (134-434); RBC 4.98 M/mm3 (3.60-5.2); RDW 14.7 % (11.6-15.6); WHITE BLOOD COUNT 5.3 K/mm3 (4.0-10.0)
[2020-04-26 10:30] LABS: POTASSIUM 3.3 mmol/L (3.5-5.1)
[2020-04-26 10:38] LABS: ALBUMIN 3.6 g/dl (3.4-5.0); BLOOD UREA NITROGEN 15.3 mg/dL (7-18); CALCIUM 9.2 mg/dL (8.5-10.1); CREATININE 1.1 mg/dL (0.55-1.3)
[2020-04-26 10:40] LABS: BILIRUBIN,TOTAL 0.9 mg/dL (0.2-1); TOT PROT 7.2 g/dl (6.4-8.2)
[2020-04-26] MEDS ORDERED: METHADONE HCL 5 MG TABLET (FOR DETOX USE ONLY) ONE (10:44)
[2020-04-26] MEDS ORDERED: METHADONE HCL 10 MG TABLET (FOR DETOX USE ONLY) ONE (10:44)
[2020-04-26] MEDS: cloNIDine HCL 0.1 MG TABLET PO PRN (12:25)
[2020-04-26] MEDS: PRENATAL VITAMINS W/ FOLIC ACID TABLET (FP) PO SCH (12:25)
[2020-04-26] MEDS: amLODIPine BESYLATE 10 MG TABLET (FP) PO SCH (12:25)
[2020-04-26] MEDS: NICOTINE 21 MG/24 HOURS TOPICAL PATCH TD SCH (12:26)
[2020-04-26] MEDS: METHOCARBAMOL 500 MG TABLET PO PRN (18:18)
[2020-04-26] MEDS: QUEtiapine FUMARATE 100 MG TABLET (FP) PO SCH (22:49)
[2020-04-26] MEDS: THIAMINE HCL 100 MG TABLET (FP) PO SCH (22:49)
[2020-04-26] MEDS: MELATONIN 5 MG TABLETS PO SCH (22:49)
[2020-04-27] MEDS: diazePAM 5 MG TABLET PO SCH ×3 (06:43→22:04)
[2020-04-27] MEDS ORDERED: METHADONE HCL 10 MG TABLET (FOR DETOX USE ONLY) PO ONE (10:00)
[2020-04-27] MEDS: PRENATAL VITAMINS W/ FOLIC ACID TABLET (FP) PO SCH (10:52)
[2020-04-27] MEDS: NICOTINE 21 MG/24 HOURS TOPICAL PATCH TD SCH (10:53)
[2020-04-27] MEDS: METHOCARBAMOL 500 MG TABLET PO PRN (10:55)
[2020-04-27] MEDS: amLODIPine BESYLATE 10 MG TABLET (FP) PO SCH (10:55)
[2020-04-27] MEDS: IBUPROFEN 400 MG TABLET (FP) PO PRN (10:55)
[2020-04-27] MEDS: cloNIDine HCL 0.1 MG TABLET PO PRN (18:17)
[2020-04-27] MEDS: QUEtiapine FUMARATE 100 MG TABLET (FP) PO SCH (22:03)
[2020-04-27] MEDS: MELATONIN 5 MG TABLETS PO SCH (22:04)
[2020-04-27] MEDS: THIAMINE HCL 100 MG TABLET (FP) PO SCH (22:05)
[2020-04-28] MEDS: diazePAM 5 MG TABLET PO SCH ×2 (06:33→17:31)
[2020-04-28] MEDS: METHOCARBAMOL 500 MG TABLET PO PRN ×2 (06:37→12:19)
[2020-04-28] MEDS: IBUPROFEN 400 MG TABLET (FP) PO PRN ×2 (06:37→12:18)
[2020-04-28] MEDS ORDERED: METHADONE HCL 5 MG TABLET (FOR DETOX USE ONLY) ONE (09:00)
[2020-04-28] MEDS ORDERED: METHADONE HCL 10 MG TABLET (FOR DETOX USE ONLY) ONE (09:00)
[2020-04-28] MEDS ORDERED: METHADONE (DETOX) 10 MG, METHADONE (DETOX) 5 MG PO ONE (10:00)
[2020-04-28] MEDS: PRENATAL VITAMINS W/ FOLIC ACID TABLET (FP) PO SCH (10:32)
[2020-04-28] MEDS: amLODIPine BESYLATE 10 MG TABLET (FP) PO SCH (10:32)
[2020-04-28] MEDS: NICOTINE 21 MG/24 HOURS TOPICAL PATCH TD SCH (10:34)
[2020-04-28] MEDS ORDERED: POTASSIUM CHLORIDE ORAL LIQUID 20 MEQ/15 ML PO ONE ×2 (14:00→18:00)
[2020-04-28 14:43] LABS: PH,URINE 7.5 (5.0-8.0); URINE APPEARANCE Clear; URINE BILIRUBIN Negative (NEGATIVE); URINE COLOR Yellow; URINE GLUCOSE (UA) Negative (NEGATIVE); URINE KETONE Trace (NEGATIVE); URINE LEUK ESTERASE 2+ (NEGATIVE); URINE NITRITE Negative (NEGATIVE); URINE PROTEIN Negative (NEGATIVE); URINE UROBILINOGEN 0.2 mg/dL (0.2-1.0)
[2020-04-28 15:03] LABS: EPI CELLS 137.9 /uL (0-25.1); URINE RBC 9.2 /uL (0-23.9); URINE WBC 91.4 /uL (0-25.8)
[2020-04-28 15:04] LABS: HYALINE CASTS 4.75 /uL (0-3.1); URINE BACTERIA 328.8 /uL (0-1359)
[2020-04-28 15:51] LABS: URINE CRYSTALS MOD /hpf
[2020-04-28] MEDS: QUEtiapine FUMARATE 100 MG TABLET (FP) PO SCH (22:20)
[2020-04-28] MEDS: THIAMINE HCL 100 MG TABLET (FP) PO SCH (22:20)
[2020-04-28] MEDS: MELATONIN 5 MG TABLETS PO SCH (22:22)
[2020-04-29] MEDS ORDERED: diazePAM 5 MG TABLET PO ONE (06:00)
[2020-04-29] MEDS: IBUPROFEN 400 MG TABLET (FP) PO PRN ×2 (06:36→22:58)
[2020-04-29] MEDS: METHOCARBAMOL 500 MG TABLET PO PRN (06:37)
[2020-04-29] MEDS ORDERED: METHADONE HCL 10 MG TABLET (FOR DETOX USE ONLY) PO ONE (10:00)
[2020-04-29] MEDS ORDERED: cloNIDine HCL 0.1 MG TABLET PO PRN (10:43)
[2020-04-29] MEDS: NICOTINE 21 MG/24 HOURS TOPICAL PATCH TD SCH (11:00)
[2020-04-29] MEDS: amLODIPine BESYLATE 10 MG TABLET (FP) PO SCH (11:03)
[2020-04-29] MEDS: PRENATAL VITAMINS W/ FOLIC ACID TABLET (FP) PO SCH (11:03)
[2020-04-29] MEDS: NITROFURANTOIN MACROCRYSTAL 50 MG CAPSULE (FP) PO SCH ×3 (11:05→22:20)
[2020-04-29] MEDS: THIAMINE HCL 100 MG TABLET (FP) PO SCH (22:20)
[2020-04-29] MEDS: QUEtiapine FUMARATE 100 MG TABLET (FP) PO SCH (22:20)
[2020-04-29] MEDS: MELATONIN 5 MG TABLETS PO SCH (22:20)
[2020-04-30] MEDS: NITROFURANTOIN MACROCRYSTAL 50 MG CAPSULE (FP) PO SCH (05:49)
[2020-04-30] MEDS: METHOCARBAMOL 500 MG TABLET PO PRN (05:52)
[2020-04-30] MEDS: IBUPROFEN 400 MG TABLET (FP) PO PRN (05:52)
[2020-04-30] MEDS ORDERED: METHADONE HCL 5 MG TABLET (FOR DETOX USE ONLY) PO ONE (06:00)
[2020-04-30 09:26] VITALS: BP 135/104; PULSE 63; TEMP 97.8
== END 2020-04-30 11:10 | disposition other institution (70) | DRG 773 ==
LOC: YASAS 16:32 → Y3N 04-26 10:11 → Y6N 04-26 10:20
PROVIDERS: ADMIT Allergy & Immunology; ATTEND Allergy & Immunology
PROC: HZ2ZZZZ Detoxification Services for Substance Abuse Treatment (ICD-10-PCS; principal; 2020-04-26)
DX: F11.23 Opioid dependence with withdrawal (principal); F10.230 Alcohol dependence with withdrawal, uncomplicated; F14.20 Cocaine dependence, uncomplicated; F16.20 Hallucinogen dependence, uncomplicated; F12.20 Cannabis dependence, uncomplicated; F17.210 Nicotine dependence, cigarettes, uncomplicated; F19.282 Other psychoactive substance dependence with psychoactive substance-induced sleep disorder; F31.9 Bipolar disorder, unspecified; F19.24 Other psychoactive substance dependence with psychoactive substance-induced mood disorder; G47.00 Insomnia, unspecified; I10 Essential (primary) hypertension; N39.0 Urinary tract infection, site not specified; M54.5 Low back pain; G89.29 Other chronic pain; M19.90 Unspecified osteoarthritis, unspecified site; Z86.39 Personal history of other endocrine, nutritional and metabolic disease; Z86.73 Personal history of transient ischemic attack (TIA), and cerebral infarction without residual deficits; Z88.2 Allergy status to sulfonamides
CPT/HCPCS: 36415; 80053; 81003; 82962; 84132; 85027; 86780; 93005; 93010; C9803; J0735; U0003

== ENCOUNTER 2020-04-30 10:42 | Inpatient (IN) | payer OTHER ==
[2020-04-30] MEDS ORDERED: P-EPHED 60MG/TRIPROLIDI 2.5MG TABLET PO PRN (11:21)
[2020-04-30] MEDS ORDERED: MENTHOL/PHENOL 1 EACH UD MM PRN (11:21)
[2020-04-30] MEDS ORDERED: guaiFENesin 200 MG/10 ML 10 ML UNIT-DOSE CUPS PO PRN (11:21)
[2020-04-30] MEDS ORDERED: MAGNESIUM HYDROX 2400MG/30ML ORAL SUSPENSION 30 ML CUP PO PRN (11:21)
[2020-04-30] MEDS ORDERED: LOPERAMIDE HCL 2 MG CAPSULE PO PRN (11:21)
[2020-04-30] MEDS ORDERED: NICOTINE POLACRILEX 2 MG GUM BUC PRN (11:21)
[2020-04-30] MEDS ORDERED: MAG HYDROX/AL HYDROX/SIMETH 30 ML UNIT-DOSE CUP PO PRN (11:21)
[2020-04-30] MEDS ORDERED: hydrOXYzine PAMOATE 25 MG CAPSULE (FP) PO PRN (11:21)
[2020-04-30] MEDS ORDERED: ACETAMINOPHEN 325 MG TABLET (FP) PO PRN (11:21)
[2020-04-30] MEDS ORDERED: MAGNESIUM CITRATE 300 ML BOTTLE PO PRN (11:21)
[2020-04-30] MEDS ORDERED: DICYCLOMINE HCL 10 MG CAPSULE PO PRN (11:33)
[2020-04-30] MEDS: NITROFURANTOIN MACROCRYSTAL 50 MG CAPSULE (FP) PO SCH ×3 (13:30→23:33)
[2020-04-30] MEDS: IBUPROFEN 400 MG TABLET (FP) PO PRN (19:15)
[2020-04-30] MEDS ORDERED: THIAMINE HCL 100 MG TABLET (FP) PO SCH (22:00)
[2020-04-30] MEDS ORDERED: QUEtiapine FUMARATE 100 MG TABLET (FP) PO SCH (22:00)
[2020-04-30] MEDS ORDERED: MELATONIN 5 MG TABLETS PO SCH (22:00)
[2020-05-01] MEDS ORDERED: PT OWN MED DRAWER 7, Y5N ONE ×3 (06:21→11:55)
[2020-05-01] MEDS: NITROFURANTOIN MACROCRYSTAL 50 MG CAPSULE (FP) PO SCH ×3 (06:21→17:49)
[2020-05-01] MEDS ORDERED: amLODIPine BESYLATE 10 MG TABLET (FP) PO SCH ×2 (07:00→10:00)
[2020-05-01] MEDS ORDERED: hydrOXYzine PAMOATE 25 MG CAPSULE (FP) PO PRN (09:57)
[2020-05-01] MEDS ORDERED: PRENATAL VITAMINS W/ FOLIC ACID TABLET (FP) PO SCH (10:00)
[2020-05-01] MEDS ORDERED: NICOTINE 21 MG/24 HOURS TOPICAL PATCH TD SCH (10:00)
[2020-05-01] MEDS ORDERED: NICOTINE 7 MG/24 HOURS TOPICAL PATCH TD SCH (10:00)
[2020-05-01] MEDS ORDERED: HYDROCHLOROTHIAZIDE 25 MG TABLET (FP) PO ONE (10:50)
[2020-05-01] MEDS ORDERED: METHOCARBAMOL 500 MG TABLET PO PRN (14:04)
[2020-05-01] MEDS: IBUPROFEN 400 MG TABLET (FP) PO PRN (14:17)
[2020-05-01 17:38] VITALS: PULSE 100; TEMP 97.8
[2020-05-01 17:39] VITALS: BP 159/108
[2020-05-01] MEDS ORDERED: QUEtiapine FUMARATE 50 MG TABLET PO SCH (22:00)
[2020-05-02] MEDS ORDERED: HYDROCHLOROTHIAZIDE 25 MG TABLET (FP) PO SCH (10:00)
== END 2020-05-01 17:40 | disposition left against medical advice (07) | DRG 770 ==
LOC: YASAS 10:42 → Y3E 10:43
PROVIDERS: ADMIT Allergy & Immunology; ATTEND Allergy & Immunology
PROC: HZ42ZZZ Group Counseling for Substance Abuse Treatment, Cognitive-Behavioral (ICD-10-PCS; principal; 2020-04-30)
DX: F10.20 Alcohol dependence, uncomplicated (principal); F11.20 Opioid dependence, uncomplicated; F14.20 Cocaine dependence, uncomplicated; F16.20 Hallucinogen dependence, uncomplicated; F12.20 Cannabis dependence, uncomplicated; F31.9 Bipolar disorder, unspecified; I10 Essential (primary) hypertension; E11.9 Type 2 diabetes mellitus without complications; G47.00 Insomnia, unspecified; N39.0 Urinary tract infection, site not specified; M19.90 Unspecified osteoarthritis, unspecified site; M54.5 Low back pain; G89.29 Other chronic pain; Z86.73 Personal history of transient ischemic attack (TIA), and cerebral infarction without residual deficits

== ENCOUNTER 2020-06-07 14:03 | Inpatient (IN) | payer OTHER ==
[2020-06-07 15:40] VITALS: BMI 24.9
[2020-06-07] MEDS ORDERED: MAGNESIUM CITRATE 300 ML BOTTLE PO PRN (16:24)
[2020-06-07] MEDS ORDERED: NICOTINE POLACRILEX 2 MG GUM BUC PRN (16:24)
[2020-06-07] MEDS ORDERED: MAGNESIUM HYDROX 2400MG/30ML ORAL SUSPENSION 30 ML CUP PO PRN (16:24)
[2020-06-07] MEDS ORDERED: IBUPROFEN 400 MG TABLET (FP) PO PRN (16:24)
[2020-06-07] MEDS ORDERED: METHADONE HCL 10 MG TABLET (FOR DETOX USE ONLY) PO ONE (16:24)
[2020-06-07] MEDS ORDERED: ACETAMINOPHEN 325 MG TABLET (FP) PO PRN (16:24)
[2020-06-07] MEDS ORDERED: BISMUTH SUBSALICYLATE 524 MG/30 ML UD PO PRN (16:24)
[2020-06-07] MEDS ORDERED: diazePAM 5 MG TABLET PO PRN (16:24)
[2020-06-07] MEDS ORDERED: MENTHOL/PHENOL 1 EACH UD MM PRN (16:24)
[2020-06-07] MEDS ORDERED: MAG HYDROX/AL HYDROX/SIMETH 30 ML UNIT-DOSE CUP PO PRN (16:24)
[2020-06-07] MEDS ORDERED: NALOXONE (NARCAN) HCL 4 MG/0.1 ML SPRAY NS PRN (16:24)
[2020-06-07] MEDS ORDERED: METHADONE HCL 10 MG TABLET (FOR DETOX USE ONLY) ONE (20:33)
[2020-06-07] MEDS ORDERED: diazePAM 5 MG TABLET ONE (20:34)
[2020-06-07] MEDS: diazePAM 5 MG TABLET PO SCH ×2 (20:42→23:28)
[2020-06-07] MEDS: MELATONIN 5 MG TABLETS PO SCH (23:28)
[2020-06-07] MEDS: THIAMINE HCL 100 MG TABLET (FP) PO SCH (23:28)
[2020-06-08] MEDS: diazePAM 5 MG TABLET PO SCH ×4 (05:47→22:33)
[2020-06-08] MEDS: cloNIDine HCL 0.1 MG TABLET PO PRN ×2 (08:17→15:17)
[2020-06-08] MEDS ORDERED: METHADONE HCL 10 MG TABLET (FOR DETOX USE ONLY) ONE (09:45)
[2020-06-08] MEDS ORDERED: METHADONE HCL 5 MG TABLET (FOR DETOX USE ONLY) ONE (09:45)
[2020-06-08] MEDS ORDERED: METHADONE (DETOX) 20 MG, METHADONE (DETOX) 5 MG PO ONE (10:00)
[2020-06-08 10:36] LABS: HEMATOCRIT 41.2 % (32.4-45.2); MCH 29.9 pg (25.7-33.7); MCHC 34.1 g/dl (32.0-36.0); MEAN CELL VOLUME 87.5 fl (80-96); MEAN PLT VOLUME 9.8 fl (7.5-11.1); PLATELET COUNT 206 K/MM3 (134-434); RBC 4.71 M/mm3 (3.60-5.2); RDW 14.7 % (11.6-15.6); WHITE BLOOD COUNT 5.5 K/mm3 (4.0-10.0)
[2020-06-08 10:50] LABS: ALBUMIN 3.4 g/dl (3.4-5.0); CALCIUM 9.3 mg/dL (8.5-10.1)
[2020-06-08 10:51] LABS: BLOOD UREA NITROGEN 17.2 mg/dL (7-18)
[2020-06-08] MEDS: PRENATAL VITAMINS W/ FOLIC ACID TABLET (FP) PO SCH (10:55)
[2020-06-08] MEDS: NICOTINE 7 MG/24 HOURS TOPICAL PATCH TD SCH (10:55)
[2020-06-08 10:57] LABS: CREATININE 1.1 mg/dL (0.55-1.3)
[2020-06-08 10:58] LABS: BILIRUBIN,TOTAL 0.4 mg/dL (0.2-1); TOT PROT 6.4 g/dl (6.4-8.2)
[2020-06-08] MEDS ORDERED: POTASSIUM CHLORIDE TABS 20 MEQ TABLET.ER (FP) PO ONE ×2 (12:44→19:00)
[2020-06-08] MEDS: QUEtiapine FUMARATE 50 MG TABLET PO SCH (22:32)
[2020-06-08] MEDS: MELATONIN 5 MG TABLETS PO SCH (22:33)
[2020-06-08] MEDS: THIAMINE HCL 100 MG TABLET (FP) PO SCH (22:33)
[2020-06-09] MEDS: diazePAM 5 MG TABLET PO SCH ×3 (07:03→22:50)
[2020-06-09] MEDS: cloNIDine HCL 0.1 MG TABLET PO PRN ×3 (07:04→18:05)
[2020-06-09] MEDS ORDERED: METHADONE HCL 10 MG TABLET (FOR DETOX USE ONLY) PO ONE (10:00)
[2020-06-09] MEDS: PRENATAL VITAMINS W/ FOLIC ACID TABLET (FP) PO SCH (10:28)
[2020-06-09] MEDS: METHOCARBAMOL 500 MG TABLET PO PRN ×2 (10:28→22:53)
[2020-06-09] MEDS: amLODIPine BESYLATE 10 MG TABLET (FP) PO SCH (10:29)
[2020-06-09] MEDS: NICOTINE 7 MG/24 HOURS TOPICAL PATCH TD SCH (10:31)
[2020-06-09] MEDS: MELATONIN 5 MG TABLETS PO SCH (22:49)
[2020-06-09] MEDS: QUEtiapine FUMARATE 50 MG TABLET PO SCH (22:49)
[2020-06-09] MEDS: THIAMINE HCL 100 MG TABLET (FP) PO SCH (22:50)
[2020-06-09] MEDS: ACETAMINOPHEN 325 MG TABLET (FP) PO PRN (22:53)
[2020-06-10] MEDS: diazePAM 5 MG TABLET PO SCH ×2 (06:14→18:06)
[2020-06-10] MEDS ORDERED: METHADONE HCL 10 MG TABLET (FOR DETOX USE ONLY) ONE (08:44)
[2020-06-10] MEDS ORDERED: METHADONE HCL 5 MG TABLET (FOR DETOX USE ONLY) ONE (08:44)
[2020-06-10] MEDS ORDERED: CYCLOBENZAPRINE HCL 5 MG TABLET PO PRN (09:34)
[2020-06-10] MEDS ORDERED: METHADONE (DETOX) 10 MG, METHADONE (DETOX) 5 MG PO ONE (10:00)
[2020-06-10] MEDS: PRENATAL VITAMINS W/ FOLIC ACID TABLET (FP) PO SCH (10:09)
[2020-06-10] MEDS: amLODIPine BESYLATE 10 MG TABLET (FP) PO SCH (10:09)
[2020-06-10] MEDS: NICOTINE 7 MG/24 HOURS TOPICAL PATCH TD SCH (10:10)
[2020-06-10] MEDS: THIAMINE HCL 100 MG TABLET (FP) PO SCH (22:30)
[2020-06-10] MEDS: QUEtiapine FUMARATE 50 MG TABLET PO SCH (22:30)
[2020-06-10] MEDS: MELATONIN 5 MG TABLETS PO SCH (22:30)
[2020-06-10] MEDS: ACETAMINOPHEN 325 MG TABLET (FP) PO PRN (22:43)
[2020-06-11] MEDS ORDERED: diazePAM 5 MG TABLET PO ONE (06:00)
[2020-06-11 06:06] LABS: SARS-CoV-2 NAA Not Detected (Not Detected)
[2020-06-11] MEDS: ACETAMINOPHEN 325 MG TABLET (FP) PO PRN ×2 (06:19→22:18)
[2020-06-11] MEDS ORDERED: METHADONE HCL 10 MG TABLET (FOR DETOX USE ONLY) PO ONE (10:00)
[2020-06-11] MEDS: amLODIPine BESYLATE 10 MG TABLET (FP) PO SCH (10:07)
[2020-06-11] MEDS: PRENATAL VITAMINS W/ FOLIC ACID TABLET (FP) PO SCH (10:08)
[2020-06-11] MEDS: NICOTINE 7 MG/24 HOURS TOPICAL PATCH TD SCH (10:09)
[2020-06-11] MEDS: THIAMINE HCL 100 MG TABLET (FP) PO SCH (22:17)
[2020-06-11] MEDS: QUEtiapine FUMARATE 50 MG TABLET PO SCH (22:17)
[2020-06-11] MEDS: MELATONIN 5 MG TABLETS PO SCH (22:17)
[2020-06-12] MEDS ORDERED: METHADONE HCL 5 MG TABLET (FOR DETOX USE ONLY) PO ONE (06:00)
[2020-06-12 06:48] VITALS: PULSE 67
[2020-06-12 08:46] VITALS: BP 138/89; TEMP 96.9
[2020-06-12] MEDS: PRENATAL VITAMINS W/ FOLIC ACID TABLET (FP) PO SCH (09:31)
[2020-06-12] MEDS: amLODIPine BESYLATE 10 MG TABLET (FP) PO SCH (09:31)
[2020-06-12] MEDS: NICOTINE 7 MG/24 HOURS TOPICAL PATCH TD SCH (09:31)
[2020-06-12 18:35] LABS: HIV INTERPRETATION NEGATIVE (NEGATIVE)
== END 2020-06-12 12:00 | disposition other institution (70) | DRG 773 ==
LOC: YASAS 14:03 → Y3N 21:10
PROVIDERS: ADMIT Allergy & Immunology; ATTEND Allergy & Immunology
PROC: HZ2ZZZZ Detoxification Services for Substance Abuse Treatment (ICD-10-PCS; principal; 2020-06-07)
DX: F11.23 Opioid dependence with withdrawal (principal); F10.230 Alcohol dependence with withdrawal, uncomplicated; F14.20 Cocaine dependence, uncomplicated; F12.20 Cannabis dependence, uncomplicated; F17.210 Nicotine dependence, cigarettes, uncomplicated; F19.280 Other psychoactive substance dependence with psychoactive substance-induced anxiety disorder; F19.24 Other psychoactive substance dependence with psychoactive substance-induced mood disorder; F19.282 Other psychoactive substance dependence with psychoactive substance-induced sleep disorder; F31.9 Bipolar disorder, unspecified; E11.9 Type 2 diabetes mellitus without complications; I10 Essential (primary) hypertension; M19.90 Unspecified osteoarthritis, unspecified site; Z86.73 Personal history of transient ischemic attack (TIA), and cerebral infarction without residual deficits; Z88.2 Allergy status to sulfonamides
CPT/HCPCS: 36415; 80053; 84132; 85027; 86780; 87389; 93005; 93010; C9803; J0735; U0003; U0005

== ENCOUNTER 2020-06-12 12:08 | Inpatient (IN) | payer OTHER ==
[2020-06-12] MEDS ORDERED: LOPERAMIDE HCL 2 MG CAPSULE PO PRN (14:46)
[2020-06-12] MEDS ORDERED: MAGNESIUM HYDROX 2400MG/30ML ORAL SUSPENSION 30 ML CUP PO PRN (14:46)
[2020-06-12] MEDS ORDERED: MAG HYDROX/AL HYDROX/SIMETH 30 ML UNIT-DOSE CUP PO PRN (14:46)
[2020-06-12] MEDS ORDERED: ACETAMINOPHEN 325 MG TABLET (FP) PO PRN (14:46)
[2020-06-12] MEDS ORDERED: MENTHOL/PHENOL 1 EACH UD MM PRN (14:46)
[2020-06-12] MEDS ORDERED: guaiFENesin 200 MG/10 ML 10 ML UNIT-DOSE CUPS PO PRN (14:46)
[2020-06-12] MEDS ORDERED: hydrOXYzine PAMOATE 25 MG CAPSULE (FP) PO PRN (14:46)
[2020-06-12] MEDS ORDERED: NICOTINE POLACRILEX 2 MG GUM BUC PRN (14:46)
[2020-06-12] MEDS ORDERED: P-EPHED 60MG/TRIPROLIDI 2.5MG TABLET PO PRN (14:46)
[2020-06-12] MEDS ORDERED: IBUPROFEN 400 MG TABLET (FP) PO PRN (14:46)
[2020-06-12] MEDS ORDERED: MAGNESIUM CITRATE 300 ML BOTTLE PO PRN (14:46)
[2020-06-12] MEDS ORDERED: cloNIDine HCL 0.1 MG TABLET PO PRN (14:53)
[2020-06-12] MEDS ORDERED: cloNIDine HCL 0.1 MG TABLET PO ONE (14:54)
[2020-06-12] MEDS: CYCLOBENZAPRINE HCL 10 MG TABLET (FP) PO SCH (21:48)
[2020-06-12] MEDS ORDERED: THIAMINE HCL 100 MG TABLET (FP) PO SCH (22:00)
[2020-06-12] MEDS ORDERED: MELATONIN 5 MG TABLETS PO SCH (22:00)
[2020-06-12] MEDS ORDERED: QUEtiapine FUMARATE 50 MG TABLET PO SCH (22:00)
[2020-06-13 00:58] VITALS: TEMP 97.7
[2020-06-13] MEDS: CYCLOBENZAPRINE HCL 10 MG TABLET (FP) PO SCH ×2 (06:02→15:28)
[2020-06-13 07:03] VITALS: BP 126/97; PULSE 80
[2020-06-13] MEDS ORDERED: amLODIPine BESYLATE 10 MG TABLET (FP) PO SCH (10:00)
[2020-06-13] MEDS ORDERED: NICOTINE 7 MG/24 HOURS TOPICAL PATCH TD SCH (10:00)
[2020-06-13] MEDS ORDERED: PRENATAL VITAMINS W/ FOLIC ACID TABLET (FP) PO SCH (10:00)
== END 2020-06-13 15:45 | disposition left against medical advice (07) | DRG 770 ==
LOC: YASAS 12:08 → Y5N 12:09
PROVIDERS: ADMIT Allergy & Immunology; ATTEND Allergy & Immunology
PROC: HZ42ZZZ Group Counseling for Substance Abuse Treatment, Cognitive-Behavioral (ICD-10-PCS; principal; 2020-06-12)
DX: F10.20 Alcohol dependence, uncomplicated (principal); F14.20 Cocaine dependence, uncomplicated; F17.210 Nicotine dependence, cigarettes, uncomplicated; F19.280 Other psychoactive substance dependence with psychoactive substance-induced anxiety disorder; F19.282 Other psychoactive substance dependence with psychoactive substance-induced sleep disorder; F19.24 Other psychoactive substance dependence with psychoactive substance-induced mood disorder; F31.9 Bipolar disorder, unspecified; I10 Essential (primary) hypertension; E11.9 Type 2 diabetes mellitus without complications; Z86.73 Personal history of transient ischemic attack (TIA), and cerebral infarction without residual deficits; M19.90 Unspecified osteoarthritis, unspecified site; Z88.2 Allergy status to sulfonamides
CPT/HCPCS: J0735

== ENCOUNTER 2020-09-06 11:52 | Inpatient (IN) | payer OTHER ==
[2020-09-06 14:10] VITALS: BMI 25.0
[2020-09-06] MEDS ORDERED: ACETAMINOPHEN 325 MG TABLET (FP) PO PRN ×2 (14:58)
[2020-09-06] MEDS ORDERED: IBUPROFEN 400 MG TABLET (FP) PO PRN (14:58)
[2020-09-06] MEDS ORDERED: ONDANSETRON *ODT* 4 MG TABLET SL PRN (14:58)
[2020-09-06] MEDS ORDERED: MAGNESIUM CITRATE 300 ML BOTTLE PO PRN (14:58)
[2020-09-06] MEDS ORDERED: MENTHOL/PHENOL 1 EACH UD MM PRN (14:58)
[2020-09-06] MEDS ORDERED: NICOTINE POLACRILEX 2 MG GUM BUC PRN (14:58)
[2020-09-06] MEDS ORDERED: BISMUTH SUBSALICYLATE 524 MG/30 ML PO PRN (14:58)
[2020-09-06] MEDS ORDERED: MAGNESIUM HYDROX 2400MG/30ML ORAL SUSPENSION 30 ML CUP PO PRN (14:58)
[2020-09-06] MEDS ORDERED: MAG HYDROX/AL HYDROX/SIMETH 30 ML UNIT-DOSE CUP PO PRN (14:58)
[2020-09-06] MEDS ORDERED: diazePAM 5 MG TABLET ONE (15:49)
[2020-09-06] MEDS ORDERED: diazePAM 5 MG TABLET PO ONE (16:00)
[2020-09-06] MEDS: diazePAM 5 MG TABLET PO SCH ×2 (17:08→22:44)
[2020-09-06] MEDS: hydrOXYzine PAMOATE 25 MG CAPSULE (FP) PO PRN (17:08)
[2020-09-06] MEDS: METHOCARBAMOL 500 MG TABLET PO PRN (17:08)
[2020-09-06] MEDS: THIAMINE HCL 100 MG TABLET (FP) PO SCH (22:44)
[2020-09-06] MEDS: MELATONIN 5 MG TABLETS PO SCH (22:46)
[2020-09-06] MEDS ORDERED: methaDONE HCL 10 MG TABLET (FOR DETOX USE ONLY) PO ONE (23:00)
[2020-09-07] MEDS: diazePAM 5 MG TABLET PO SCH ×4 (07:00→22:14)
[2020-09-07] MEDS ORDERED: methaDONE HCL 10 MG TABLET (FOR DETOX USE ONLY) ONE (08:57)
[2020-09-07] MEDS: METHOCARBAMOL 500 MG TABLET PO PRN ×2 (10:42→22:17)
[2020-09-07] MEDS: amLODIPine BESYLATE 10 MG TABLET (FP) PO SCH (10:42)
[2020-09-07] MEDS: PRENATAL VITAMINS W/ FOLIC ACID TABLET (FP) PO SCH (10:42)
[2020-09-07] MEDS: cloNIDine HCL 0.1 MG TABLET PO PRN ×3 (13:23→22:15)
[2020-09-07] MEDS: diazePAM 5 MG TABLET PO PRN (15:16)
[2020-09-07] MEDS: hydrOXYzine PAMOATE 25 MG CAPSULE (FP) PO PRN (15:17)
[2020-09-07] MEDS: QUEtiapine FUMARATE 100 MG TABLET (FP) PO SCH (22:14)
[2020-09-07] MEDS: MELATONIN 5 MG TABLETS PO SCH (22:14)
[2020-09-07] MEDS: THIAMINE HCL 100 MG TABLET (FP) PO SCH (22:14)
[2020-09-08] MEDS: diazePAM 5 MG TABLET PO SCH ×3 (06:48→22:26)
[2020-09-08] MEDS ORDERED: methaDONE HCL 10 MG TABLET (FOR DETOX USE ONLY) PO ONE (10:00)
[2020-09-08] MEDS: amLODIPine BESYLATE 10 MG TABLET (FP) PO SCH (10:03)
[2020-09-08] MEDS: PRENATAL VITAMINS W/ FOLIC ACID TABLET (FP) PO SCH (10:03)
[2020-09-08] MEDS: cloNIDine HCL 0.1 MG TABLET PO PRN (10:04)
[2020-09-08] MEDS: MELATONIN 5 MG TABLETS PO SCH (22:26)
[2020-09-08] MEDS: THIAMINE HCL 100 MG TABLET (FP) PO SCH (22:26)
[2020-09-08] MEDS: QUEtiapine FUMARATE 100 MG TABLET (FP) PO SCH (22:26)
[2020-09-08] MEDS: CEPHALEXIN MONOHYDRATE 500 MG CAPSULE (UD) PO SCH (22:26)
[2020-09-09] MEDS: diazePAM 5 MG TABLET PO SCH ×2 (05:27→19:47)
[2020-09-09] MEDS ORDERED: methaDONE HCL 10 MG TABLET (FOR DETOX USE ONLY) ONE (09:46)
[2020-09-09 10:04] LABS: HEMOGLOBIN 15.5 GM/dL (10.7-15.3); MCH 29.3 pg (25.7-33.7); MCHC 32.4 g/dl (32.0-36.0); MEAN CELL VOLUME 90.6 fl (80-96); MEAN PLT VOLUME 10.2 fl (7.5-11.1); PLATELET COUNT 214 10^3/uL (134-434); RDW 14.6 % (11.6-15.6); WHITE BLOOD COUNT 4.5 K/mm3 (4.0-10.0)
[2020-09-09 10:07] LABS: ALBUMIN 3.4 g/dl (3.4-5.0)
[2020-09-09 10:08] LABS: BLOOD UREA NITROGEN 14.3 mg/dL (7-18); CALCIUM 9.4 mg/dL (8.5-10.1)
[2020-09-09 10:12] LABS: BILIRUBIN,TOTAL 0.4 mg/dL (0.2-1); CREATININE 0.9 mg/dL (0.55-1.3); TOT PROT 6.9 g/dl (6.4-8.2)
[2020-09-09] MEDS: METHOCARBAMOL 500 MG TABLET PO PRN (11:03)
[2020-09-09] MEDS: CEPHALEXIN MONOHYDRATE 500 MG CAPSULE (UD) PO SCH ×2 (11:03→22:17)
[2020-09-09] MEDS: PRENATAL VITAMINS W/ FOLIC ACID TABLET (FP) PO SCH (11:03)
[2020-09-09] MEDS: amLODIPine BESYLATE 10 MG TABLET (FP) PO SCH (11:03)
[2020-09-09] MEDS: diazePAM 5 MG TABLET PO PRN (11:13)
[2020-09-09] MEDS ORDERED: cloNIDine HCL 0.1 MG TABLET PO ONE (11:42)
[2020-09-09] MEDS: QUEtiapine FUMARATE 100 MG TABLET (FP) PO SCH (22:17)
[2020-09-09] MEDS: THIAMINE HCL 100 MG TABLET (FP) PO SCH (22:17)
[2020-09-09] MEDS: MELATONIN 5 MG TABLETS PO SCH (22:36)
[2020-09-10] MEDS ORDERED: diazePAM 5 MG TABLET PO ONE (06:00)
[2020-09-10 09:43] VITALS: BP 161/107; PULSE 63; TEMP 96.9
[2020-09-10] MEDS ORDERED: methaDONE HCL 10 MG TABLET (FOR DETOX USE ONLY) PO ONE (10:00)
[2020-09-10] MEDS: CEPHALEXIN MONOHYDRATE 500 MG CAPSULE (UD) PO SCH (10:03)
[2020-09-10] MEDS: amLODIPine BESYLATE 10 MG TABLET (FP) PO SCH (10:03)
[2020-09-10] MEDS: METHOCARBAMOL 500 MG TABLET PO PRN (10:04)
[2020-09-10] MEDS: PRENATAL VITAMINS W/ FOLIC ACID TABLET (FP) PO SCH (10:19)
== END 2020-09-10 11:53 | disposition left against medical advice (07) | DRG 770 ==
LOC: YASAS 11:52 → Y3N 15:42
PROVIDERS: ADMIT Allergy & Immunology; ATTEND Allergy & Immunology
PROC: HZ2ZZZZ Detoxification Services for Substance Abuse Treatment (ICD-10-PCS; principal; 2020-09-06)
DX: F10.230 Alcohol dependence with withdrawal, uncomplicated (principal); F11.23 Opioid dependence with withdrawal; F14.20 Cocaine dependence, uncomplicated; F16.10 Hallucinogen abuse, uncomplicated; F12.20 Cannabis dependence, uncomplicated; F17.210 Nicotine dependence, cigarettes, uncomplicated; F31.81 Bipolar II disorder; F19.282 Other psychoactive substance dependence with psychoactive substance-induced sleep disorder; F19.280 Other psychoactive substance dependence with psychoactive substance-induced anxiety disorder; F19.24 Other psychoactive substance dependence with psychoactive substance-induced mood disorder; E11.9 Type 2 diabetes mellitus without complications; I10 Essential (primary) hypertension; M54.5 Low back pain; G89.29 Other chronic pain; Z87.440 Personal history of urinary (tract) infections; Z86.2 Personal history of diseases of the blood and blood-forming organs and certain disorders involving the immune mechanism; Z86.73 Personal history of transient ischemic attack (TIA), and cerebral infarction without residual deficits; Z88.2 Allergy status to sulfonamides
CPT/HCPCS: 36415; 80053; 85027; 86780; C9803; J0735; U0003; U0005

== ENCOUNTER 2020-10-07 11:28 | Inpatient (IN) | payer OTHER ==
[2020-10-07 12:47] VITALS: BMI 24.9
[2020-10-07] MEDS ORDERED: NICOTINE 10 MG CARTRIDGE (INHALER) IH PRN (14:23)
[2020-10-07] MEDS ORDERED: MENTHOL/PHENOL 1 EACH UD MM PRN (14:23)
[2020-10-07] MEDS ORDERED: MAGNESIUM HYDROX 2400MG/30ML ORAL SUSPENSION 30 ML CUP PO PRN (14:23)
[2020-10-07] MEDS ORDERED: methaDONE HCL 10 MG TABLET (FOR DETOX USE ONLY) PO ONE (14:23)
[2020-10-07] MEDS ORDERED: MAGNESIUM CITRATE 300 ML BOTTLE PO PRN (14:23)
[2020-10-07] MEDS ORDERED: clonazePAM 0.5 MG ODT TABLETS SL PRN (14:23)
[2020-10-07] MEDS ORDERED: MAG HYDROX/AL HYDROX/SIMETH 30 ML UNIT-DOSE CUP PO PRN (14:23)
[2020-10-07] MEDS ORDERED: ONDANSETRON *ODT* 4 MG TABLET SL PRN (14:23)
[2020-10-07] MEDS ORDERED: NICOTINE POLACRILEX 4 MG GUM BUC PRN (14:23)
[2020-10-07] MEDS ORDERED: ACETAMINOPHEN 325 MG TABLET (FP) PO PRN ×2 (14:23)
[2020-10-07] MEDS ORDERED: diazePAM 5 MG TABLET PO PRN (14:23)
[2020-10-07] MEDS ORDERED: BISMUTH SUBSALICYLATE 524 MG/30 ML PO PRN (14:23)
[2020-10-07] MEDS: PRENATAL VITAMINS W/ FOLIC ACID TABLET (FP) PO SCH (15:15)
[2020-10-07] MEDS: amLODIPine BESYLATE 10 MG TABLET (FP) PO SCH (17:31)
[2020-10-07] MEDS: diazePAM 5 MG TABLET PO SCH ×2 (17:31→22:25)
[2020-10-07] MEDS: METHYL SALICYLATE/MENTHOL OINT 30 GM TUBE TP SCH (17:31)
[2020-10-07] MEDS: cloNIDine HCL 0.1 MG TABLET PO PRN (17:31)
[2020-10-07] MEDS: hydrOXYzine PAMOATE 25 MG CAPSULE (FP) PO SCH ×2 (17:32→22:25)
[2020-10-07 17:35] LABS: HEMATOCRIT 43.1 % (32.4-45.2); HEMOGLOBIN 14.5 GM/dL (10.7-15.3); MCHC 33.6 g/dl (32.0-36.0); MEAN CELL VOLUME 89.3 fl (80-96); MEAN PLT VOLUME 9.9 fl (7.5-11.1); PLATELET COUNT 247 10^3/uL (134-434); RBC 4.83 M/mm3 (3.60-5.2); RDW 14.6 % (11.6-15.6); WHITE BLOOD COUNT 8.5 K/mm3 (4.0-10.0)
[2020-10-07 17:37] LABS: CALCIUM 9.8 mg/dL (8.5-10.1)
[2020-10-07 17:38] LABS: BLOOD UREA NITROGEN 14.9 mg/dL (7-18)
[2020-10-07 17:40] LABS: CREATININE 1.3 mg/dL (0.55-1.3)
[2020-10-07 17:42] LABS: BILIRUBIN,TOTAL 0.2 mg/dL (0.2-1); TOT PROT 7.8 g/dl (6.4-8.2)
[2020-10-07] MEDS: THIAMINE HCL 100 MG TABLET (FP) PO SCH (22:25)
[2020-10-07] MEDS: MELATONIN 5 MG TABLETS PO SCH (22:25)
[2020-10-08] MEDS: diazePAM 5 MG TABLET PO SCH ×4 (06:20→22:43)
[2020-10-08] MEDS: hydrOXYzine PAMOATE 25 MG CAPSULE (FP) PO SCH ×2 (06:20→10:02)
[2020-10-08] MEDS ORDERED: methaDONE HCL 10 MG TABLET (FOR DETOX USE ONLY) ONE (08:49)
[2020-10-08] MEDS: amLODIPine BESYLATE 10 MG TABLET (FP) PO SCH (10:02)
[2020-10-08] MEDS: METHYL SALICYLATE/MENTHOL OINT 30 GM TUBE TP SCH (10:02)
[2020-10-08] MEDS: PRENATAL VITAMINS W/ FOLIC ACID TABLET (FP) PO SCH (10:02)
[2020-10-08] MEDS ORDERED: hydrOXYzine PAMOATE 25 MG CAPSULE (FP) PO PRN (11:36)
[2020-10-08] MEDS: cloNIDine HCL 0.1 MG TABLET PO PRN (17:44)
[2020-10-08] MEDS: MELATONIN 5 MG TABLETS PO SCH (22:42)
[2020-10-08] MEDS: QUEtiapine FUMARATE 50 MG TABLET PO SCH (22:42)
[2020-10-08] MEDS: THIAMINE HCL 100 MG TABLET (FP) PO SCH (22:42)
[2020-10-09] MEDS: IBUPROFEN 400 MG TABLET (FP) PO PRN (06:32)
[2020-10-09] MEDS: METHOCARBAMOL 500 MG TABLET PO PRN (06:32)
[2020-10-09] MEDS: cloNIDine HCL 0.1 MG TABLET PO PRN ×2 (06:32→22:44)
[2020-10-09] MEDS: diazePAM 5 MG TABLET PO SCH ×3 (06:32→22:44)
[2020-10-09] MEDS ORDERED: methaDONE HCL 10 MG TABLET (FOR DETOX USE ONLY) PO ONE (10:00)
[2020-10-09] MEDS: amLODIPine BESYLATE 10 MG TABLET (FP) PO SCH (11:07)
[2020-10-09] MEDS: METHYL SALICYLATE/MENTHOL OINT 30 GM TUBE TP SCH (11:07)
[2020-10-09] MEDS: PRENATAL VITAMINS W/ FOLIC ACID TABLET (FP) PO SCH (11:08)
[2020-10-09] MEDS: LISINOPRIL 10 MG TABLET PO SCH (13:10)
[2020-10-09] MEDS: QUEtiapine FUMARATE 50 MG TABLET PO SCH (22:44)
[2020-10-09] MEDS: THIAMINE HCL 100 MG TABLET (FP) PO SCH (22:44)
[2020-10-09] MEDS: MELATONIN 5 MG TABLETS PO SCH (22:44)
[2020-10-10] MEDS: diazePAM 5 MG TABLET PO SCH ×2 (07:19→17:14)
[2020-10-10] MEDS ORDERED: methaDONE HCL 10 MG TABLET (FOR DETOX USE ONLY) ONE (09:15)
[2020-10-10] MEDS: METHYL SALICYLATE/MENTHOL OINT 30 GM TUBE TP SCH (09:45)
[2020-10-10] MEDS: PRENATAL VITAMINS W/ FOLIC ACID TABLET (FP) PO SCH (09:46)
[2020-10-10] MEDS: LISINOPRIL 10 MG TABLET PO SCH (09:47)
[2020-10-10] MEDS: amLODIPine BESYLATE 10 MG TABLET (FP) PO SCH (09:47)
[2020-10-10] MEDS: IBUPROFEN 400 MG TABLET (FP) PO PRN (09:48)
[2020-10-10] MEDS: METHOCARBAMOL 500 MG TABLET PO PRN ×2 (09:50→22:29)
[2020-10-10] MEDS ORDERED: NITROFURANTOIN MACROCRYSTAL 50 MG CAPSULE (FP) PO SCH (18:00)
[2020-10-10] MEDS: CEPHALEXIN MONOHYDRATE 500 MG CAPSULE (UD) PO SCH (22:27)
[2020-10-10] MEDS: MELATONIN 5 MG TABLETS PO SCH (22:27)
[2020-10-10] MEDS: THIAMINE HCL 100 MG TABLET (FP) PO SCH (22:27)
[2020-10-10] MEDS: QUEtiapine FUMARATE 50 MG TABLET PO SCH (22:27)
[2020-10-11] MEDS ORDERED: diazePAM 5 MG TABLET PO ONE (06:00)
[2020-10-11] MEDS ORDERED: methaDONE HCL 10 MG TABLET (FOR DETOX USE ONLY) PO ONE (10:00)
[2020-10-11 10:08] VITALS: BP 140/95; PULSE 61; TEMP 96.8
[2020-10-11] MEDS: METHYL SALICYLATE/MENTHOL OINT 30 GM TUBE TP SCH (12:39)
[2020-10-11] MEDS: LISINOPRIL 10 MG TABLET PO SCH (12:39)
[2020-10-11] MEDS: PRENATAL VITAMINS W/ FOLIC ACID TABLET (FP) PO SCH (12:39)
[2020-10-11] MEDS: CEPHALEXIN MONOHYDRATE 500 MG CAPSULE (UD) PO SCH (12:39)
[2020-10-11] MEDS: amLODIPine BESYLATE 10 MG TABLET (FP) PO SCH (12:39)
== END 2020-10-11 12:25 | disposition home or self-care (01) | DRG 773 ==
LOC: YASAS 11:28 → UNDOADMIN 15:26 → Y3N 15:26
PROVIDERS: ADMIT Allergy & Immunology; ATTEND Allergy & Immunology
PROC: HZ2ZZZZ Detoxification Services for Substance Abuse Treatment (ICD-10-PCS; principal; 2020-10-07)
DX: F11.23 Opioid dependence with withdrawal (principal); F10.230 Alcohol dependence with withdrawal, uncomplicated; F14.20 Cocaine dependence, uncomplicated; F12.20 Cannabis dependence, uncomplicated; F17.210 Nicotine dependence, cigarettes, uncomplicated; F31.9 Bipolar disorder, unspecified; I10 Essential (primary) hypertension; E11.9 Type 2 diabetes mellitus without complications; M19.90 Unspecified osteoarthritis, unspecified site; M54.5 Low back pain; G89.29 Other chronic pain; Z87.440 Personal history of urinary (tract) infections; Z86.73 Personal history of transient ischemic attack (TIA), and cerebral infarction without residual deficits; Z88.2 Allergy status to sulfonamides
CPT/HCPCS: 36415; 80053; 81025; 85027; 86780; 87086; C9803; J0735; U0003; U0005

== ENCOUNTER 2020-11-15 11:18 | Inpatient (IN) | payer OTHER ==
[2020-11-15 11:56] VITALS: BMI 25.2
[2020-11-15] MEDS ORDERED: MENTHOL/PHENOL 1 EACH UD MM PRN (13:33)
[2020-11-15] MEDS ORDERED: IBUPROFEN 400 MG TABLET (FP) PO PRN (13:33)
[2020-11-15] MEDS ORDERED: methaDONE HCL 10 MG TABLET (FOR DETOX USE ONLY) PO ONE (13:33)
[2020-11-15] MEDS ORDERED: ACETAMINOPHEN 325 MG TABLET (FP) PO PRN ×2 (13:33)
[2020-11-15] MEDS ORDERED: BISMUTH SUBSALICYLATE 524 MG/30 ML PO PRN (13:33)
[2020-11-15] MEDS ORDERED: MAGNESIUM HYDROX 2400MG/30ML ORAL SUSPENSION 30 ML CUP PO PRN (13:33)
[2020-11-15] MEDS ORDERED: MAG HYDROX/AL HYDROX/SIMETH 30 ML UNIT-DOSE CUP PO PRN (13:33)
[2020-11-15] MEDS ORDERED: diazePAM 5 MG TABLET PO PRN (13:33)
[2020-11-15] MEDS ORDERED: MAGNESIUM CITRATE 300 ML BOTTLE PO PRN (13:33)
[2020-11-15] MEDS ORDERED: NICOTINE 10 MG CARTRIDGE (INHALER) IH PRN (13:33)
[2020-11-15] MEDS ORDERED: ONDANSETRON *ODT* 4 MG TABLET SL PRN (13:33)
[2020-11-15] MEDS ORDERED: diazePAM 5 MG TABLET PO ONE (14:00)
[2020-11-15] MEDS: LIDOCAINE 5% TOPICAL PATCH TP SCH (16:55)
[2020-11-15] MEDS: amLODIPine BESYLATE 10 MG TABLET (FP) PO SCH (16:55)
[2020-11-15] MEDS: METHOCARBAMOL 500 MG TABLET PO PRN (16:55)
[2020-11-15] MEDS: NICOTINE 21 MG/24 HOURS TOPICAL PATCH TD SCH (17:02)
[2020-11-15] MEDS: diazePAM 5 MG TABLET PO SCH ×2 (18:59→22:55)
[2020-11-15] MEDS: MELATONIN 5 MG TABLETS PO SCH (22:54)
[2020-11-15] MEDS: cloNIDine HCL 0.1 MG TABLET PO PRN (22:55)
[2020-11-15] MEDS: THIAMINE HCL 100 MG TABLET (FP) PO SCH (22:56)
[2020-11-15] MEDS: LIDOCAINE PATCH REMOVAL MC SCH (22:58)
[2020-11-16] MEDS: diazePAM 5 MG TABLET PO SCH ×4 (06:23→22:31)
[2020-11-16] MEDS: INSULIN SLIDING SCALE (NOVOLOG) 1 VIAL SQ SCH ×2 (06:24→18:08)
[2020-11-16] MEDS ORDERED: methaDONE HCL 10 MG TABLET (FOR DETOX USE ONLY) ONE (09:14)
[2020-11-16] MEDS: cloNIDine HCL 0.1 MG TABLET PO PRN ×2 (10:39→22:29)
[2020-11-16] MEDS: PRENATAL VITAMINS W/ FOLIC ACID TABLET (FP) PO SCH (10:40)
[2020-11-16] MEDS: NICOTINE 21 MG/24 HOURS TOPICAL PATCH TD SCH (11:18)
[2020-11-16] MEDS: amLODIPine BESYLATE 10 MG TABLET (FP) PO SCH (11:18)
[2020-11-16] MEDS: LIDOCAINE 5% TOPICAL PATCH TP SCH (11:19)
[2020-11-16 11:57] LABS: HEMATOCRIT 43.9 % (32.4-45.2); HEMOGLOBIN 14.5 GM/dL (10.7-15.3); MCH 29.7 pg (25.7-33.7); MCHC 33.2 g/dl (32.0-36.0); MEAN CELL VOLUME 89.5 fl (80-96); MEAN PLT VOLUME 10.2 fl (7.5-11.1); PLATELET COUNT 197 10^3/uL (134-434); RDW 14.7 % (11.6-15.6); WHITE BLOOD COUNT 4.4 K/mm3 (4.0-10.0)
[2020-11-16 12:03] LABS: CALCIUM 9.2 mg/dL (8.5-10.1)
[2020-11-16 12:04] LABS: ALBUMIN 3.3 g/dl (3.4-5.0); BLOOD UREA NITROGEN 18.1 mg/dL (7-18)
[2020-11-16 12:07] LABS: CREATININE 1.1 mg/dL (0.55-1.3)
[2020-11-16 12:09] LABS: BILIRUBIN,TOTAL 0.8 mg/dL (0.2-1)
[2020-11-16] MEDS: METHOCARBAMOL 500 MG TABLET PO PRN (22:29)
[2020-11-16] MEDS: QUEtiapine FUMARATE 50 MG TABLET PO SCH (22:29)
[2020-11-16] MEDS: THIAMINE HCL 100 MG TABLET (FP) PO SCH (22:30)
[2020-11-16] MEDS: MELATONIN 5 MG TABLETS PO SCH (22:30)
[2020-11-16] MEDS: LIDOCAINE PATCH REMOVAL MC SCH (22:31)
[2020-11-17] MEDS: diazePAM 5 MG TABLET PO SCH ×3 (06:08→22:32)
[2020-11-17] MEDS: INSULIN SLIDING SCALE (NOVOLOG) 1 VIAL SQ SCH ×2 (07:34→17:57)
[2020-11-17] MEDS ORDERED: methaDONE HCL 10 MG TABLET (FOR DETOX USE ONLY) PO ONE (10:00)
[2020-11-17] MEDS ORDERED: hydrOXYzine PAMOATE 25 MG CAPSULE (FP) PO PRN (10:13)
[2020-11-17] MEDS: PRENATAL VITAMINS W/ FOLIC ACID TABLET (FP) PO SCH (10:30)
[2020-11-17] MEDS: amLODIPine BESYLATE 10 MG TABLET (FP) PO SCH (10:30)
[2020-11-17] MEDS: LIDOCAINE 5% TOPICAL PATCH TP SCH (10:31)
[2020-11-17] MEDS: NICOTINE 21 MG/24 HOURS TOPICAL PATCH TD SCH (10:32)
[2020-11-17] MEDS: LISINOPRIL 10 MG TABLET PO SCH (11:23)
[2020-11-17] MEDS: cloNIDine HCL 0.1 MG TABLET PO PRN ×2 (17:28→22:32)
[2020-11-17] MEDS: METHOCARBAMOL 500 MG TABLET PO PRN (22:32)
[2020-11-17] MEDS: MELATONIN 5 MG TABLETS PO SCH (22:32)
[2020-11-17] MEDS: QUEtiapine FUMARATE 50 MG TABLET PO SCH (22:32)
[2020-11-17] MEDS: THIAMINE HCL 100 MG TABLET (FP) PO SCH (22:32)
[2020-11-17] MEDS: LIDOCAINE PATCH REMOVAL MC SCH (22:34)
[2020-11-18] MEDS ORDERED: diazePAM 5 MG TABLET PO SCH (06:00)
[2020-11-18] MEDS: INSULIN SLIDING SCALE (NOVOLOG) 1 VIAL SQ SCH (06:59)
[2020-11-18 09:07] VITALS: BP 140/94; PULSE 56; TEMP 97.4
[2020-11-18] MEDS ORDERED: methaDONE HCL 10 MG TABLET (FOR DETOX USE ONLY) ONE (09:37)
[2020-11-18] MEDS: LIDOCAINE 5% TOPICAL PATCH TP SCH (10:28)
[2020-11-18] MEDS: LISINOPRIL 10 MG TABLET PO SCH (10:29)
[2020-11-18] MEDS: NICOTINE 21 MG/24 HOURS TOPICAL PATCH TD SCH (10:29)
[2020-11-18] MEDS: amLODIPine BESYLATE 10 MG TABLET (FP) PO SCH (10:29)
[2020-11-18] MEDS: PRENATAL VITAMINS W/ FOLIC ACID TABLET (FP) PO SCH (10:32)
[2020-11-18] MEDS ORDERED: QUEtiapine FUMARATE 100 MG TABLET (FP) PO SCH (22:00)
[2020-11-19] MEDS ORDERED: diazePAM 5 MG TABLET PO ONE (06:00)
[2020-11-19] MEDS ORDERED: methaDONE HCL 10 MG TABLET (FOR DETOX USE ONLY) PO ONE (10:00)
== END 2020-11-18 12:21 | disposition left against medical advice (07) | DRG 770 ==
LOC: YASAS 11:18 → Y3N 14:12
PROVIDERS: ADMIT Allergy & Immunology; ATTEND Allergy & Immunology
PROC: HZ2ZZZZ Detoxification Services for Substance Abuse Treatment (ICD-10-PCS; principal; 2020-11-15)
DX: F11.23 Opioid dependence with withdrawal (principal); F10.230 Alcohol dependence with withdrawal, uncomplicated; F14.20 Cocaine dependence, uncomplicated; F12.20 Cannabis dependence, uncomplicated; F17.210 Nicotine dependence, cigarettes, uncomplicated; F31.9 Bipolar disorder, unspecified; F19.282 Other psychoactive substance dependence with psychoactive substance-induced sleep disorder; F19.24 Other psychoactive substance dependence with psychoactive substance-induced mood disorder; I11.0 Hypertensive heart disease with heart failure; E11.9 Type 2 diabetes mellitus without complications; Z79.4 Long term (current) use of insulin; M19.90 Unspecified osteoarthritis, unspecified site; M54.5 Low back pain; G89.29 Other chronic pain; R74.8 Abnormal levels of other serum enzymes; Z88.2 Allergy status to sulfonamides; Z86.73 Personal history of transient ischemic attack (TIA), and cerebral infarction without residual deficits
CPT/HCPCS: 36415; 80053; 85027; 86780; C9803; J0735; U0003; U0005

== ENCOUNTER 2021-07-02 10:25 | Inpatient (IN) | payer OTHER ==
[2021-07-02] MEDS ORDERED: MAGNESIUM CITRATE 300 ML BOTTLE PO PRN (12:23)
[2021-07-02] MEDS ORDERED: MAGNESIUM HYDROX 2400MG/30ML ORAL SUSPENSION 30 ML CUP PO PRN (12:23)
[2021-07-02] MEDS ORDERED: ONDANSETRON *ODT* 4 MG TABLET SL PRN (12:23)
[2021-07-02] MEDS ORDERED: ACETAMINOPHEN 325 MG TABLET (FP) PO PRN ×2 (12:23)
[2021-07-02] MEDS ORDERED: LOPERAMIDE HCL 2 MG CAPSULE PO PRN (12:23)
[2021-07-02] MEDS ORDERED: BISMUTH SUBSALICYLATE 262 MG/15 ML BTL PO PRN (12:23)
[2021-07-02] MEDS ORDERED: NICOTINE 10 MG CARTRIDGE (INHALER) IH PRN (12:23)
[2021-07-02] MEDS ORDERED: BENZOCAINE/MENTHOL (CHLORASEPTIC ) LOZENGE MM PRN (12:23)
[2021-07-02] MEDS ORDERED: DICYCLOMINE HCL 10 MG CAPSULE PO PRN (12:23)
[2021-07-02] MEDS ORDERED: MAG HYDROX/AL HYDROX/SIMETH 30 ML UNIT-DOSE CUP PO PRN (12:23)
[2021-07-02] MEDS ORDERED: NALOXONE (NARCAN) HCL 4 MG/0.1 ML SPRAY NS SCH (12:30)
[2021-07-02] MEDS ORDERED: LISINOPRIL 10 MG TABLET PO SCH (12:45)
[2021-07-02 13:36] VITALS: BMI 24.3
[2021-07-02] MEDS: METHOCARBAMOL 500 MG TABLET PO PRN (15:03)
[2021-07-02] MEDS: chlordiazePOXIDE HCL 25 MG CAPSULE PO PRN (15:03)
[2021-07-02] MEDS: IBUPROFEN 400 MG TABLET (FP) PO PRN (15:03)
[2021-07-02] MEDS: hydrOXYzine PAMOATE 25 MG CAPSULE (FP) PO SCH ×3 (15:03→22:30)
[2021-07-02] MEDS: amLODIPine BESYLATE 10 MG TABLET (FP) PO SCH (15:03)
[2021-07-02] MEDS: NICOTINE 14 MG/24 HOURS TOPICAL PATCH TD SCH (15:08)
[2021-07-02] MEDS: cloNIDine HCL 0.1 MG TABLET PO PRN ×2 (18:19→22:35)
[2021-07-02] MEDS: chlordiazePOXIDE HCL 25 MG CAPSULE PO SCH ×2 (18:19→22:30)
[2021-07-02] MEDS: THIAMINE HCL 100 MG TABLET (FP) PO SCH (22:30)
[2021-07-02] MEDS: MELATONIN 5 MG TABLETS PO SCH (22:30)
[2021-07-02] MEDS ORDERED: methaDONE HCL 10 MG TABLET (FOR DETOX USE ONLY) PO ONE (23:00)
[2021-07-03] MEDS: hydrOXYzine PAMOATE 25 MG CAPSULE (FP) PO SCH ×5 (06:24→22:10)
[2021-07-03] MEDS: chlordiazePOXIDE HCL 25 MG CAPSULE PO SCH ×4 (06:24→22:10)
[2021-07-03] MEDS ORDERED: methaDONE HCL 10 MG TABLET (FOR DETOX USE ONLY) ONE (09:51)
[2021-07-03 09:59] LABS: HEMATOCRIT 42.5 % (32.4-45.2); MCH 29.5 pg (25.7-33.7); MCHC 32.8 g/dl (32.0-36.0); MEAN CELL VOLUME 89.9 fl (80-96); MEAN PLT VOLUME 10.5 fl (7.5-11.1); PLATELET COUNT 216 10^3/uL (134-434); RBC 4.73 M/mm3 (3.60-5.2); RDW 14.6 % (11.6-15.6)
[2021-07-03 10:03] LABS: BLOOD UREA NITROGEN 12.9 mg/dL (7-18); CALCIUM 9.4 mg/dL (8.5-10.1)
[2021-07-03 10:04] LABS: ALBUMIN 3.8 g/dl (3.4-5.0)
[2021-07-03 10:06] LABS: CREATININE 1.1 mg/dL (0.55-1.3)
[2021-07-03 10:07] LABS: BILIRUBIN,TOTAL 0.5 mg/dL (0.2-1)
[2021-07-03] MEDS: PRENATAL VITAMINS W/ FOLIC ACID TABLET (FP) PO SCH (10:51)
[2021-07-03] MEDS: amLODIPine BESYLATE 10 MG TABLET (FP) PO SCH (10:51)
[2021-07-03] MEDS: METHOCARBAMOL 500 MG TABLET PO PRN (10:51)
[2021-07-03] MEDS: NICOTINE 14 MG/24 HOURS TOPICAL PATCH TD SCH (10:52)
[2021-07-03] MEDS: AMOX TR/POT CLAV 875MG/125MG TABLETS (FP) PO SCH (18:03)
[2021-07-03] MEDS: QUEtiapine FUMARATE 100 MG TABLET (FP) PO SCH (22:09)
[2021-07-03] MEDS: chlordiazePOXIDE HCL 25 MG CAPSULE PO PRN (22:09)
[2021-07-03] MEDS: THIAMINE HCL 100 MG TABLET (FP) PO SCH (22:09)
[2021-07-03] MEDS: MELATONIN 5 MG TABLETS PO SCH (22:10)
[2021-07-04] MEDS: METHOCARBAMOL 500 MG TABLET PO PRN ×4 (03:42→23:16)
[2021-07-04] MEDS: IBUPROFEN 400 MG TABLET (FP) PO PRN (06:15)
[2021-07-04] MEDS: hydrOXYzine PAMOATE 25 MG CAPSULE (FP) PO SCH ×3 (06:16→14:15)
[2021-07-04] MEDS: chlordiazePOXIDE HCL 25 MG CAPSULE PO SCH ×4 (06:16→22:14)
[2021-07-04] MEDS: AMOX TR/POT CLAV 875MG/125MG TABLETS (FP) PO SCH ×2 (07:14→17:49)
[2021-07-04] MEDS: cloNIDine HCL 0.1 MG TABLET PO PRN (09:01)
[2021-07-04] MEDS ORDERED: methaDONE HCL 10 MG TABLET (FOR DETOX USE ONLY) PO ONE (10:00)
[2021-07-04] MEDS ORDERED: TRIMETHOBENZAMIDE HCL 200MG/2ML INJ IM ONE (10:45)
[2021-07-04] MEDS: amLODIPine BESYLATE 10 MG TABLET (FP) PO SCH (12:08)
[2021-07-04] MEDS: PRENATAL VITAMINS W/ FOLIC ACID TABLET (FP) PO SCH (12:17)
[2021-07-04] MEDS: NICOTINE 14 MG/24 HOURS TOPICAL PATCH TD SCH (12:17)
[2021-07-04] MEDS ORDERED: LIDOCAINE 5% TOPICAL PATCH TP SCH (14:00)
[2021-07-04] MEDS: chlordiazePOXIDE HCL 25 MG CAPSULE PO PRN (14:51)
[2021-07-04] MEDS ORDERED: LIDOCAINE 5% TOPICAL PATCH TP ONE (17:25)
[2021-07-04] MEDS: hydrOXYzine PAMOATE 25 MG CAPSULE (FP) PO PRN ×2 (17:48→22:14)
[2021-07-04] MEDS ORDERED: LIDOCAINE PATCH REMOVAL MC SCH ×2 (22:00)
[2021-07-04] MEDS: MELATONIN 5 MG TABLETS PO SCH (22:12)
[2021-07-04] MEDS: QUEtiapine FUMARATE 100 MG TABLET (FP) PO SCH (22:13)
[2021-07-04] MEDS: THIAMINE HCL 100 MG TABLET (FP) PO SCH (22:13)
[2021-07-05] MEDS ORDERED: chlordiazePOXIDE HCL 10 MG CAPSULE PO PRN
[2021-07-05] MEDS ORDERED: NALOXONE (NARCAN) HCL 4 MG/0.1 ML SPRAY NS ONE (01:05)
[2021-07-05 02:19] VITALS: BP 205/126; PULSE 123; TEMP 98
[2021-07-05] MEDS ORDERED: chlordiazePOXIDE HCL 10 MG CAPSULE PO SCH (05:00)
[2021-07-06] MEDS ORDERED: chlordiazePOXIDE HCL 10 MG CAPSULE PO SCH (05:00)
[2021-07-06] MEDS ORDERED: methaDONE HCL 10 MG TABLET (FOR DETOX USE ONLY) PO ONE (10:00)
[2021-07-07] MEDS ORDERED: chlordiazePOXIDE HCL 10 MG CAPSULE PO ONE (05:00)
== END 2021-07-05 08:07 | disposition short-term general hospital (02) | DRG 773 ==
LOC: YASAS 10:25 → Y6N 13:49
PROVIDERS: ADMIT Allergy & Immunology; ATTEND Surgery
PROC: HZ2ZZZZ Detoxification Services for Substance Abuse Treatment (ICD-10-PCS; principal; 2021-07-02)
DX: F11.23 Opioid dependence with withdrawal (principal); F10.230 Alcohol dependence with withdrawal, uncomplicated; F14.20 Cocaine dependence, uncomplicated; F12.20 Cannabis dependence, uncomplicated; F31.81 Bipolar II disorder; F19.24 Other psychoactive substance dependence with psychoactive substance-induced mood disorder; R07.9 Chest pain, unspecified; Z86.73 Personal history of transient ischemic attack (TIA), and cerebral infarction without residual deficits; Z88.2 Allergy status to sulfonamides
CPT/HCPCS: 36415; 80053; 82962; 85027; 86780; C9803-CS; J0735; Q0162; U0003; U0005

== ENCOUNTER 2021-07-05 01:41 | Inpatient (IN) | payer OTHER ==
[2021-07-05] MEDS ORDERED: diazePAM CARPU-JECT 10 MG/2 ML DISP.SYRIN IVPUSH ONE ×3 (02:28→03:46)
[2021-07-05] MEDS ORDERED: MIDAZOLAM HCL 2 MG/2 ML SINGLE DOSE VIAL ONE (02:32)
[2021-07-05] MEDS ORDERED: diazePAM CARPU-JECT 10 MG/2 ML DISP.SYRIN ONE ×3 (02:36→03:47)
[2021-07-05 02:38] LABS: HEMATOCRIT 59.8 % (32.4-45.2); MCH 29.5 pg (25.7-33.7); MCHC 33.6 g/dl (32.0-36.0); MEAN CELL VOLUME 87.8 fl (80-96); MEAN PLT VOLUME 9.4 fl (7.5-11.1); PLATELET COUNT 353 10^3/uL (134-434); RBC 6.82 M/mm3 (3.60-5.2)
[2021-07-05] MEDS ORDERED: diazePAM 5 MG TABLET PO ONE (02:42)
[2021-07-05 02:58] LABS: CHLORIDE 93 mmol/L (98-107); SODIUM 127 mmol/L (136-145)
[2021-07-05 02:59] LABS: HEMOGLOBIN 20.1 GM/dL (10.7-15.3)
[2021-07-05 03:02] LABS: ALBUMIN 4.5 g/dl (3.4-5.0); BLOOD UREA NITROGEN 19.7 mg/dL (7-18); CO2 20 mmol/L (21-32); GLUCOSE,RANDOM 385 mg/dL (74-106); INR 0.97 (0.83-1.09); PROTHROMBIN TIME (PATIENT) 11.1 SEC (9.7-13.0)
[2021-07-05 03:04] LABS: ACTIVATED PTT 38.8 SECONDS (25.2-36.5)
[2021-07-05 03:05] LABS: BILIRUBIN,TOTAL 0.7 mg/dL (0.2-1); CREATININE 1.8 mg/dL (0.55-1.3)
[2021-07-05 03:11] LABS: ALK PHOS 153 U/L (45-117); ANION GAP 14 MMOL/L (8-16); CALCIUM 11.2 mg/dL (8.5-10.1); SGOT/AST 90 U/L (15-37); SGPT/ALT 62 U/L (13-61); TOT PROT 10.3 g/dl (6.4-8.2)
[2021-07-05] MEDS: PROPOFOL 1,000,000 MCG/100 ML VIAL IVPB SCH ×2 (03:30→07:41)
[2021-07-05 03:44] LABS: VENOUS BASE EXCESS -4.1 mmol/L (-2-2); VENOUS O2 SATURATION 91.7 % (70-80); VENOUS PCO2 31.1 mmHg (38-52); VENOUS PH 7.402 (7.310-7.410)
[2021-07-05 03:53] LABS: EPI CELLS >36 /uL (0-25.1); HYALINE CASTS 10 /uL (0-3.1); PH,URINE 5.5 (5.0-8.0); URINE APPEARANCE CLEAR; URINE BACTERIA 60 /uL (0-1359); URINE BILIRUBIN NEGATIVE (NEGATIVE); URINE COLOR YELLOW; URINE GLUCOSE (UA) 3+ (NEGATIVE); URINE KETONE TRACE (NEGATIVE); URINE LEUK ESTERASE NEGATIVE (NEGATIVE); URINE NITRITE NEGATIVE (NEGATIVE); URINE PROTEIN 4+ (NEGATIVE); URINE RBC 23 /uL (0-23.9); URINE UROBILINOGEN 0.2 mg/dL (0.2-1.0); URINE WBC 19 /uL (0-25.8)
[2021-07-05 03:55] LABS: HEMATOCRIT 55.4 % (32.4-45.2); HEMOGLOBIN 18.5 GM/dL (10.7-15.3); MCH 29.2 pg (25.7-33.7); MCHC 33.3 g/dl (32.0-36.0); MEAN CELL VOLUME 87.7 fl (80-96); MEAN PLT VOLUME 9.9 fl (7.5-11.1); PLATELET COUNT 302 10^3/uL (134-434); RBC 6.32 M/mm3 (3.60-5.2); RDW 14.5 % (11.6-15.6); WHITE BLOOD COUNT 18.8 K/mm3 (4.0-10.0)
[2021-07-05 04:15] LABS: LACTIC ACID 7.8 mmol/L (0.4-2.0)
[2021-07-05 04:15] LABS: CHLORIDE 94 mmol/L (98-107); SODIUM 133 mmol/L (136-145)
[2021-07-05] MEDS ORDERED: MIDAZOLAM IN 0.9 % SOD.CHLORID 100 MG/100 ML PLAST..BAG IVPB SCH (04:15)
[2021-07-05 04:17] LABS: CALCIUM 11.4 mg/dL (8.5-10.1)
[2021-07-05 04:18] LABS: ALBUMIN 4.4 g/dl (3.4-5.0); ANION GAP 17 MMOL/L (8-16); BLOOD UREA NITROGEN 19.8 mg/dL (7-18); CO2 22 mmol/L (21-32)
[2021-07-05 04:21] LABS: CREATININE 1.6 mg/dL (0.55-1.3); SGOT/AST 29 U/L (15-37); SGPT/ALT 47 U/L (13-61)
[2021-07-05 04:23] LABS: ALK PHOS 141 U/L (45-117); BILIRUBIN,TOTAL 0.7 mg/dL (0.2-1); TOT PROT 8.8 g/dl (6.4-8.2)
[2021-07-05 04:44] LABS: GLUCOSE,RANDOM 402 mg/dL (74-106)
[2021-07-05 04:53] LABS: ANISOCYTOSIS 0; MACROCYTOSIS 0
[2021-07-05] MEDS ORDERED: PHENobarbital SODIUM 65 MG/1 ML VIAL IVPUSH ONE (05:00)
[2021-07-05] MEDS ORDERED: hydrALAZINE HCL 20 MG/ML VIAL IVPUSH ONE (05:01)
[2021-07-05] MEDS ORDERED: NICARDIPINE 25 MG in DEXTROSE 5%-WATER - 240 ML IVPB SCH (05:15)
[2021-07-05] MEDS ORDERED: NALOXONE HCL 0.4 MG/ML VIAL ONE (05:21)
[2021-07-05] MEDS ORDERED: INSULIN (NOVOLOG) ASPART 100 UNITS/ML 10ML VIAL SQ ONE (05:28)
[2021-07-05 05:30] LABS: ANISOCYTOSIS 0; MACROCYTOSIS 0
[2021-07-05] MEDS ORDERED: LACTATED RINGERS SOLUTION 1,000 ML/1,000 ML INFUS.BAG IV SCH (05:30)
[2021-07-05] MEDS ORDERED: NALOXONE HCL 0.4 MG/ML VIAL IVPUSH ONE ×2 (05:32→05:39)
[2021-07-05] MEDS ORDERED: PIPERACILLIN/TAZOB 4.5 GM 4.5 GM in DEXTROSE 5%-WATER 100 ML IVPB ONE (05:40)
[2021-07-05 05:44] LABS: ALLENS TEST POSITIVE; ARTERIAL BLD GAS O2 SATURATION 98.8 % (95-98); ARTERIAL BLOOD GAS pH 7.435 (7.350-7.450)
[2021-07-05 05:45] LABS: VENT MODE A/C; VENT RATE 20
[2021-07-05 05:51] LABS: INR 1.02 (0.83-1.09); PROTHROMBIN TIME (PATIENT) 11.7 SEC (9.7-13.0)
[2021-07-05] MEDS ORDERED: VANCOMYCIN 1 GM/200 ML PREMIX BAG IVPB ONE (06:00)
[2021-07-05 06:02] LABS: CHLORIDE 92 mmol/L (98-107); SODIUM 129 mmol/L (136-145)
[2021-07-05 06:04] LABS: ALBUMIN 4.2 g/dl (3.4-5.0); ANION GAP 16 MMOL/L (8-16); CALCIUM 10.4 mg/dL (8.5-10.1); CO2 21 mmol/L (21-32)
[2021-07-05 06:06] LABS: CREATININE 1.7 mg/dL (0.55-1.3)
[2021-07-05] MEDS: HEPARIN NA (PORCINE) 5,000 UNITS/ML 1ML VIAL SQ SCH ×3 (06:09→23:01)
[2021-07-05 06:10] LABS: ALK PHOS 131 U/L (45-117)
[2021-07-05] MEDS ORDERED: DEXTROSE 5%-WATER 100 ML IVPB ONE (06:10)
[2021-07-05] MEDS ORDERED: PIPERACILLIN/TAZOBACTAM 4.5 GM VIAL IVPB ONE (06:10)
[2021-07-05 06:19] LABS: HEMATOCRIT 54.8 % (32.4-45.2); HEMOGLOBIN 18.9 GM/dL (10.7-15.3); MCH 30.2 pg (25.7-33.7); MCHC 34.5 g/dl (32.0-36.0); MEAN CELL VOLUME 87.5 fl (80-96); MEAN PLT VOLUME 10.6 fl (7.5-11.1); PLATELET COUNT 299 10^3/uL (134-434); RBC 6.26 M/mm3 (3.60-5.2); RDW 14.6 % (11.6-15.6); WHITE BLOOD COUNT 16.6 K/mm3 (4.0-10.0)
[2021-07-05 06:21] LABS: GLUCOSE,RANDOM 414 mg/dL (74-106); LACTIC ACID 5.1 mmol/L (0.4-2.0); SGOT/AST 48 U/L (15-37); SGPT/ALT 53 U/L (13-61); TOT PROT 8.6 g/dl (6.4-8.2)
[2021-07-05] MEDS ORDERED: SODIUM CHLORIDE 1,000 ML IV SCH (06:30)
[2021-07-05 07:22] LABS: VENOUS BASE EXCESS -6.8 mmol/L (-2-2); VENOUS O2 SATURATION 74.1 % (70-80); VENOUS PCO2 35.6 mmHg (38-52); VENOUS PH 7.319 (7.310-7.410)
[2021-07-05] MEDS: MUPIROCIN 2% TOPICAL OINTMENT FOR DECOLONIZATION NS SCH ×2 (09:27→23:01)
[2021-07-05] MEDS: HYDROmorphone HCl 2 MG/ML VIAL IVPUSH PRN ×2 (09:30→12:53)
[2021-07-05] MEDS ORDERED: POTASSIUM CHLORIDE TABS 20 MEQ TABLET.ER (FP) PO ONE ×2 (09:45→10:00)
[2021-07-05] MEDS ORDERED: POTASSIUM CHLORIDE ORAL LIQUID 20 MEQ/15 ML GT ONE (09:50)
[2021-07-05] MEDS ORDERED: THIAMINE HCL 200 MG/2 ML VIAL IVPB SCH (10:00)
[2021-07-05] MEDS ORDERED: LISINOPRIL 10 MG TABLET PO SCH (10:00)
[2021-07-05] MEDS ORDERED: LISINOPRIL 10 MG TABLET GT SCH (10:00)
[2021-07-05] MEDS ORDERED: DEXMEDETOMIDINE IN 0.9 % NACL 400 MCG/100 ML VIAL IVPB SCH (10:30)
[2021-07-05 10:46] LABS: MAGNESIUM 2.2 mg/dL (1.8-2.4)
[2021-07-05 10:50] LABS: PHOSPHOROUS 4.2 mg/dL (2.5-4.9)
[2021-07-05 11:17] LABS: ALBUMIN 4.4 g/dl (3.4-5.0); BLOOD UREA NITROGEN 19.2 mg/dL (7-18); CALCIUM 10.9 mg/dL (8.5-10.1)
[2021-07-05 11:20] LABS: CREATININE 1.7 mg/dL (0.55-1.3)
[2021-07-05 11:22] LABS: BILIRUBIN,TOTAL 0.7 mg/dL (0.2-1)
[2021-07-05 11:48] LABS: PHENCYCLIDINE,URINE NEGATIVE (NEGATIVE); URINE AMPHETAMINES NEGATIVE (NEGATIVE)
[2021-07-05 11:51] LABS: COCAINE, UR POSITIVE (NEGATIVE); METHADONE, UR POSITIVE (NEGATIVE); OPIATES, URI POSITIVE (NEGATIVE); URINE BARBITURATES POSITIVE (NEGATIVE); URINE BENZODIAZEPINES POSITIVE (NEGATIVE)
[2021-07-05] MEDS ORDERED: FOLIC ACID INJECTION - 1 MG, THIAMINE HCL 100 MG, MULTIVIT INJECTION ADULT 10 ML in SOD... IVPB ONE (12:08)
[2021-07-05] MEDS ORDERED: hydrALAZINE HCL 20 MG/ML VIAL IVPUSH SCH ×2 (12:30→15:11)
[2021-07-05] MEDS: MIDAZOLAM IN 0.9 % SOD.CHLORID 100 MG/100 ML PLAST..BAG IVPB SCH ×2 (12:55→16:32)
[2021-07-05 13:37] LABS: LACTIC ACID 2.8 mmol/L (0.4-2.0)
[2021-07-05] MEDS: INSULIN SLIDING SCALE (NOVOLOG) 1 VIAL SQ SCH ×2 (16:29→21:33)
[2021-07-05] MEDS ORDERED: PIPERACILLIN/TAZOB 3.375 GM 3.375 GM in DEXTROSE 5%-WATER - 50 ML IVPB SCH (18:00)
[2021-07-05] MEDS ORDERED: PIPERACILLIN/TAZOBACTAM 3.375 GM VIAL IVPB ONE (18:05)
[2021-07-05] MEDS ORDERED: DEXTROSE 5%-WATER - 50 ML IVPB ONE (18:05)
[2021-07-05] MEDS: PIPERACILLIN/TAZOB 3.375 GM 3.375 GM in DEXTROSE 5%-WATER - 50 ML IVPB SCH (18:07)
[2021-07-05] MEDS: hydrALAZINE HCL 20 MG/ML VIAL IVPUSH SCH ×2 (18:08→21:15)
[2021-07-05] MEDS: CHLORHEXIDINE GLUCONATE 4% CLEANSER FOR DECOLONIZATION TP SCH (23:01)
[2021-07-06] MEDS: hydrALAZINE HCL 20 MG/ML VIAL IVPUSH SCH ×5 (03:28→21:40)
[2021-07-06] MEDS ORDERED: PIPERACILLIN/TAZOBACTAM 3.375 GM VIAL IVPB ONE (04:55)
[2021-07-06] MEDS ORDERED: DEXTROSE 5%-WATER - 50 ML IVPB ONE (04:55)
[2021-07-06] MEDS: INSULIN SLIDING SCALE (NOVOLOG) 1 VIAL SQ SCH ×4 (06:04→21:43)
[2021-07-06] MEDS: methaDONE HCL 10 MG TABLET GT SCH (06:04)
[2021-07-06] MEDS: HEPARIN NA (PORCINE) 5,000 UNITS/ML 1ML VIAL SQ SCH ×3 (06:05→21:43)
[2021-07-06] MEDS: PIPERACILLIN/TAZOB 3.375 GM 3.375 GM in DEXTROSE 5%-WATER - 50 ML IVPB SCH (06:05)
[2021-07-06 07:05] LABS: HEMATOCRIT 48.9 % (32.4-45.2); MCH 28.9 pg (25.7-33.7); MCHC 32.6 g/dl (32.0-36.0); MEAN CELL VOLUME 88.7 fl (80-96); MEAN PLT VOLUME 9.8 fl (7.5-11.1); PLATELET COUNT 226 10^3/uL (134-434); RBC 5.52 M/mm3 (3.60-5.2); WHITE BLOOD COUNT 16.9 K/mm3 (4.0-10.0)
[2021-07-06 07:25] LABS: CALCIUM 9.6 mg/dL (8.5-10.1)
[2021-07-06 07:29] LABS: CREATININE 4.2 mg/dL (0.55-1.3)
[2021-07-06 07:31] LABS: BILIRUBIN,TOTAL 0.7 mg/dL (0.2-1)
[2021-07-06 07:37] LABS: ALBUMIN 3.5 g/dl (3.4-5.0)
[2021-07-06] MEDS ORDERED: PANTOPRAZOLE SOD 40 MG SUSPENSION PACKET PO SCH (10:00)
[2021-07-06] MEDS: MUPIROCIN 2% TOPICAL OINTMENT FOR DECOLONIZATION NS SCH ×2 (10:04→21:44)
[2021-07-06] MEDS: FAMOTIDINE 40 MG/5 ML ORAL SUSPENSION GT SCH (10:04)
[2021-07-06] MEDS: SODIUM CHLORIDE 1,000 ML IV SCH (11:15)
[2021-07-06] MEDS: MIDAZOLAM IN 0.9 % SOD.CHLORID 100 MG/100 ML PLAST..BAG IVPB SCH ×2 (14:19→19:54)
[2021-07-06] MEDS ORDERED: DEXMEDETOMIDINE IN 0.9 % NACL 400 MCG/100 ML VIAL IVPB SCH ×2 (17:30→17:40)
[2021-07-06] MEDS: DEXMEDETOMIDINE IN 0.9 % NACL 400 MCG/100 ML VIAL IVPB SCH (19:22)
[2021-07-06 19:52] LABS: EPI CELLS >36 /uL (0-25.1); HYALINE CASTS 19 /uL (0-3.1); URINE APPEARANCE CLOUDY; URINE BACTERIA 7 /uL (0-1359); URINE BILIRUBIN NEGATIVE (NEGATIVE); URINE COLOR YELLOW; URINE GLUCOSE (UA) NEGATIVE (NEGATIVE); URINE KETONE TRACE (NEGATIVE); URINE LEUK ESTERASE 2+ (NEGATIVE); URINE NITRITE NEGATIVE (NEGATIVE); URINE PROTEIN 2+ (NEGATIVE); URINE RBC 97 /uL (0-23.9); URINE UROBILINOGEN 0.2 mg/dL (0.2-1.0); URINE WBC 229 /uL (0-25.8)
[2021-07-06] MEDS: HYDROmorphone HCl 2 MG/ML VIAL IVPUSH PRN (19:56)
[2021-07-06] MEDS: CHLORHEXIDINE GLUCONATE 4% CLEANSER FOR DECOLONIZATION TP SCH (21:44)
[2021-07-07] MEDS: hydrALAZINE HCL 20 MG/ML VIAL IVPUSH SCH ×5 (01:33→21:56)
[2021-07-07] MEDS ORDERED: PROPOFOL 1,000,000 MCG/100 ML VIAL ONE (01:45)
[2021-07-07] MEDS: DEXMEDETOMIDINE IN 0.9 % NACL 400 MCG/100 ML VIAL IVPB SCH (02:54)
[2021-07-07] MEDS: PROPOFOL 1,000,000 MCG/100 ML VIAL IVPB SCH ×2 (02:54→07:32)
[2021-07-07] MEDS: INSULIN SLIDING SCALE (NOVOLOG) 1 VIAL SQ SCH ×4 (03:39→22:08)
[2021-07-07] MEDS: HEPARIN NA (PORCINE) 5,000 UNITS/ML 1ML VIAL SQ SCH ×3 (06:09→21:56)
[2021-07-07] MEDS: methaDONE HCL 10 MG TABLET GT SCH (06:09)
[2021-07-07] MEDS: HYDROmorphone HCl 2 MG/ML VIAL IVPUSH PRN ×4 (06:10→21:57)
[2021-07-07 06:49] LABS: HEMATOCRIT 47.4 % (32.4-45.2); HEMOGLOBIN 15.4 GM/dL (10.7-15.3); MCH 28.8 pg (25.7-33.7); MCHC 32.4 g/dl (32.0-36.0); PLATELET COUNT 220 10^3/uL (134-434); RBC 5.33 M/mm3 (3.60-5.2); RDW 15.1 % (11.6-15.6); WHITE BLOOD COUNT 19.9 K/mm3 (4.0-10.0)
[2021-07-07 07:13] LABS: MAGNESIUM 2.4 mg/dL (1.8-2.4)
[2021-07-07 07:17] LABS: PHOSPHOROUS 3.7 mg/dL (2.5-4.9)
[2021-07-07] MEDS: FAMOTIDINE 40 MG/5 ML ORAL SUSPENSION GT SCH (09:48)
[2021-07-07] MEDS: MUPIROCIN 2% TOPICAL OINTMENT FOR DECOLONIZATION NS SCH ×2 (09:48→22:08)
[2021-07-07] MEDS: MIDAZOLAM IN 0.9 % SOD.CHLORID 100 MG/100 ML PLAST..BAG IVPB SCH (10:38)
[2021-07-07 11:22] LABS: ALBUMIN 3.3 g/dl (3.4-5.0); BLOOD UREA NITROGEN 48.6 mg/dL (7-18); CALCIUM 9.1 mg/dL (8.5-10.1)
[2021-07-07 11:24] LABS: CREATININE 2.3 mg/dL (0.55-1.3)
[2021-07-07 11:27] LABS: BILIRUBIN,TOTAL 0.4 mg/dL (0.2-1); TOT PROT 6.8 g/dl (6.4-8.2)
[2021-07-07] MEDS: SODIUM CHLORIDE 1,000 ML IV SCH (12:17)
[2021-07-07] MEDS ORDERED: PIPERACILLIN/TAZOBACTAM 2.25 GM VIAL IVPB ONE ×2 (13:33→21:42)
[2021-07-07] MEDS ORDERED: DEXTROSE 5%-WATER - 50 ML IVPB ONE ×2 (13:33→21:42)
[2021-07-07] MEDS: PIPERACILLIN/TAZOB 2.25 GM 2.25 GM in DEXTROSE 5%-WATER - 50 ML IVPB SCH ×2 (14:47→21:57)
[2021-07-07] MEDS: CHLORHEXIDINE GLUCONATE 4% CLEANSER FOR DECOLONIZATION TP SCH (22:08)
[2021-07-08] MEDS ORDERED: DEXTROSE 5%-WATER - 50 ML IVPB ONE ×4 (02:31→20:58)
[2021-07-08] MEDS ORDERED: PIPERACILLIN/TAZOBACTAM 2.25 GM VIAL IVPB ONE ×4 (02:31→20:58)
[2021-07-08] MEDS: HYDROmorphone HCl 2 MG/ML VIAL IVPUSH PRN (02:32)
[2021-07-08] MEDS: PIPERACILLIN/TAZOB 2.25 GM 2.25 GM in DEXTROSE 5%-WATER - 50 ML IVPB SCH ×4 (02:32→20:59)
[2021-07-08] MEDS: hydrALAZINE HCL 20 MG/ML VIAL IVPUSH SCH ×4 (02:32→20:59)
[2021-07-08] MEDS: INSULIN SLIDING SCALE (NOVOLOG) 1 VIAL SQ SCH ×4 (02:45→21:26)
[2021-07-08] MEDS: PROPOFOL 1,000,000 MCG/100 ML VIAL IVPB SCH (02:47)
[2021-07-08] MEDS: SODIUM CHLORIDE 1,000 ML IV SCH (04:06)
[2021-07-08] MEDS: methaDONE HCL 10 MG TABLET GT SCH (05:26)
[2021-07-08] MEDS: HEPARIN NA (PORCINE) 5,000 UNITS/ML 1ML VIAL SQ SCH ×3 (05:29→21:00)
[2021-07-08 07:43] LABS: HEMATOCRIT 47.3 % (32.4-45.2); MCHC 31.8 g/dl (32.0-36.0); MEAN CELL VOLUME 91.2 fl (80-96); MEAN PLT VOLUME 10.1 fl (7.5-11.1); PLATELET COUNT 153 10^3/uL (134-434); RBC 5.18 M/mm3 (3.60-5.2); RDW 15.1 % (11.6-15.6); WHITE BLOOD COUNT 16.5 K/mm3 (4.0-10.0)
[2021-07-08 08:12] LABS: MAGNESIUM 2.6 mg/dL (1.8-2.4)
[2021-07-08 08:16] LABS: PHOSPHOROUS 3.1 mg/dL (2.5-4.9)
[2021-07-08 08:32] LABS: CALCIUM 9.4 mg/dL (8.5-10.1)
[2021-07-08 08:34] LABS: ALBUMIN 3.3 g/dl (3.4-5.0); BLOOD UREA NITROGEN 28.4 mg/dL (7-18)
[2021-07-08 08:36] LABS: CREATININE 1.1 mg/dL (0.55-1.3)
[2021-07-08 08:37] LABS: BILIRUBIN,TOTAL 0.7 mg/dL (0.2-1); TOT PROT 6.9 g/dl (6.4-8.2)
[2021-07-08] MEDS: MIDAZOLAM IN 0.9 % SOD.CHLORID 100 MG/100 ML PLAST..BAG IVPB SCH (10:02)
[2021-07-08] MEDS: FAMOTIDINE 40 MG/5 ML ORAL SUSPENSION GT SCH (10:02)
[2021-07-08] MEDS: MUPIROCIN 2% TOPICAL OINTMENT FOR DECOLONIZATION NS SCH ×2 (10:30→21:02)
[2021-07-08] MEDS: methaDONE HCL 10 MG TABLET PO SCH (14:50)
[2021-07-08 15:31] VITALS: BMI 23.3
[2021-07-08] MEDS: amLODIPine BESYLATE 5 MG TABLET (FP) PO SCH (15:42)
[2021-07-08] MEDS ORDERED: cloNIDine HCL 0.1 MG TABLET PO ONE (16:32)
[2021-07-08] MEDS: CHLORHEXIDINE GLUCONATE 4% CLEANSER FOR DECOLONIZATION TP SCH (21:02)
[2021-07-09] MEDS ORDERED: PIPERACILLIN/TAZOBACTAM 2.25 GM VIAL IVPB ONE ×3 (00:30→14:47)
[2021-07-09] MEDS ORDERED: DEXTROSE 5%-WATER - 50 ML IVPB ONE ×3 (00:30→14:47)
[2021-07-09] MEDS: INSULIN SLIDING SCALE (NOVOLOG) 1 VIAL SQ SCH ×5 (00:32→23:04)
[2021-07-09] MEDS ORDERED: MELATONIN 5 MG TABLETS PO SCH ×2 (01:45→22:00)
[2021-07-09] MEDS: PIPERACILLIN/TAZOB 2.25 GM 2.25 GM in DEXTROSE 5%-WATER - 50 ML IVPB SCH ×3 (02:05→14:34)
[2021-07-09] MEDS: hydrALAZINE HCL 20 MG/ML VIAL IVPUSH SCH ×2 (02:05→07:59)
[2021-07-09] MEDS: methaDONE HCL 10 MG TABLET PO SCH (05:42)
[2021-07-09] MEDS: PROPOFOL 1,000,000 MCG/100 ML VIAL IVPB SCH (05:43)
[2021-07-09] MEDS: HEPARIN NA (PORCINE) 5,000 UNITS/ML 1ML VIAL SQ SCH ×3 (05:43→21:30)
[2021-07-09 07:39] LABS: HEMATOCRIT 42.2 % (32.4-45.2); HEMOGLOBIN 14.2 GM/dL (10.7-15.3); MCH 29.6 pg (25.7-33.7); MCHC 33.6 g/dl (32.0-36.0); MEAN CELL VOLUME 87.9 fl (80-96); PLATELET COUNT 209 10^3/uL (134-434); RDW 14.9 % (11.6-15.6); WHITE BLOOD COUNT 11.7 K/mm3 (4.0-10.0)
[2021-07-09 07:56] LABS: MAGNESIUM 2.6 mg/dL (1.8-2.4)
[2021-07-09 07:59] LABS: PHOSPHOROUS 2.2 mg/dL (2.5-4.9)
[2021-07-09] MEDS: MUPIROCIN 2% TOPICAL OINTMENT FOR DECOLONIZATION NS SCH (09:05)
[2021-07-09] MEDS: amLODIPine BESYLATE 5 MG TABLET (FP) PO SCH (09:05)
[2021-07-09] MEDS: FAMOTIDINE 40 MG/5 ML ORAL SUSPENSION GT SCH (11:43)
[2021-07-09] MEDS ORDERED: amLODIPine BESYLATE 10 MG TABLET (FP) PO SCH (11:56)
[2021-07-09] MEDS: LISINOPRIL 10 MG TABLET PO SCH (12:24)
[2021-07-09] MEDS ORDERED: amLODIPine BESYLATE 5 MG TABLET (FP) PO ONE (15:41)
[2021-07-09] MEDS ORDERED: hydrALAZINE HCL 20 MG/ML VIAL IVPUSH ONE (16:12)
[2021-07-09] MEDS ORDERED: POTASSIUM CHLORIDE TABS 20 MEQ TABLET.ER (FP) PO ONE (19:42)
[2021-07-09] MEDS ORDERED: CHLORHEXIDINE GLUCONATE 4% CLEANSER FOR DECOLONIZATION TP SCH (22:00)
[2021-07-09] MEDS ORDERED: MUPIROCIN 2% TOPICAL OINTMENT FOR DECOLONIZATION NS SCH (22:00)
[2021-07-10] MEDS: HEPARIN NA (PORCINE) 5,000 UNITS/ML 1ML VIAL SQ SCH (05:56)
[2021-07-10] MEDS ORDERED: methaDONE HCL 10 MG TABLET PO SCH (06:00)
[2021-07-10] MEDS: INSULIN SLIDING SCALE (NOVOLOG) 1 VIAL SQ SCH ×2 (06:11→12:11)
[2021-07-10 08:53] VITALS: BP 148/98; PULSE 92; TEMP 98.6
[2021-07-10 09:01] LABS: HEMATOCRIT 43.2 % (32.4-45.2); HEMOGLOBIN 14.2 GM/dL (10.7-15.3); MCH 29.3 pg (25.7-33.7); MCHC 32.8 g/dl (32.0-36.0); MEAN CELL VOLUME 89.3 fl (80-96); PLATELET COUNT 204 10^3/uL (134-434); RBC 4.84 M/mm3 (3.60-5.2); RDW 15.3 % (11.6-15.6); WHITE BLOOD COUNT 8.3 K/mm3 (4.0-10.0)
[2021-07-10] MEDS: LISINOPRIL 10 MG TABLET PO SCH (09:18)
[2021-07-10] MEDS ORDERED: FAMOTIDINE 40 MG/5 ML ORAL SUSPENSION GT SCH (10:00)
== END 2021-07-10 11:55 | disposition left against medical advice (07) | DRG 770 ==
LOC: JER 01:41 → JERBED 03:34 → JICU 05:03 → J6S 07-09 18:55
PROVIDERS: ADMIT Internal Medicine Pulmonary Disease; ATTEND Internal Medicine
PROC: 0BH17EZ Insertion of Endotracheal Airway into Trachea, Via Natural or Artificial Opening (ICD-10-PCS; principal; 2021-07-05)
PROC: 5A1945Z Respiratory Ventilation, 24-96 Consecutive Hours (ICD-10-PCS; 2021-07-05)
PROC: HZ2ZZZZ Detoxification Services for Substance Abuse Treatment (ICD-10-PCS; 2021-07-05)
DX: F10.239 Alcohol dependence with withdrawal, unspecified (principal); R41.82 Altered mental status, unspecified; I10 Essential (primary) hypertension; F31.9 Bipolar disorder, unspecified; M54.50 Low back pain, unspecified; F41.8 Other specified anxiety disorders; J96.00 Acute respiratory failure, unspecified whether with hypoxia or hypercapnia; N17.9 Acute kidney failure, unspecified; E11.65 Type 2 diabetes mellitus with hyperglycemia; F19.10 Other psychoactive substance abuse, uncomplicated; E87.2 Acidosis; I16.9 Hypertensive crisis, unspecified; E83.52 Hypercalcemia; Z86.73 Personal history of transient ischemic attack (TIA), and cerebral infarction without residual deficits
CPT/HCPCS: 36415; 36600; 70450-TC; 71275-TC; 72125-TC; 74177-TC; 80053; 80307; 81003; 82010; 82140; 82436; 82570; 82803; 82962; 83036; 83605; 83735; 84100; 84133; 84300; 84484; 85025; 85027; 85610; 85730; 86850; 86900; 86901; 87040; 87086; 93005; 93010; 94002; 97116-GP; 97161-GP; 99291; J0735; J1644; Q9967

== ENCOUNTER 2021-08-26 13:55 | Inpatient (IN) | payer OTHER ==
[2021-08-26 15:23] VITALS: BMI 22.5
[2021-08-26] MEDS ORDERED: LOPERAMIDE HCL 2 MG CAPSULE PO PRN (17:07)
[2021-08-26] MEDS ORDERED: BISMUTH SUBSALICYLATE 524 MG/30 ML PO PRN (17:07)
[2021-08-26] MEDS ORDERED: METHOCARBAMOL 500 MG TABLET PO PRN (17:07)
[2021-08-26] MEDS ORDERED: BENZOCAINE/MENTHOL (CHLORASEPTIC ) LOZENGE MM PRN (17:07)
[2021-08-26] MEDS ORDERED: ONDANSETRON *ODT* 4 MG TABLET SL PRN (17:07)
[2021-08-26] MEDS ORDERED: MAGNESIUM HYDROX 2400MG/30ML ORAL SUSPENSION 30 ML CUP PO PRN (17:07)
[2021-08-26] MEDS ORDERED: DICYCLOMINE HCL 10 MG CAPSULE PO PRN (17:07)
[2021-08-26] MEDS ORDERED: MAG HYDROX/AL HYDROX/SIMETH 30 ML UNIT-DOSE CUP PO PRN (17:07)
[2021-08-26] MEDS ORDERED: MAGNESIUM CITRATE 300 ML BOTTLE PO PRN (17:07)
[2021-08-26] MEDS ORDERED: ACETAMINOPHEN 325 MG TABLET (FP) PO PRN (17:07)
[2021-08-26] MEDS ORDERED: IBUPROFEN 400 MG TABLET (FP) PO PRN (17:07)
[2021-08-26] MEDS ORDERED: IBUPROFEN 600 MG TABLET (FP) PO PRN (17:07)
[2021-08-26] MEDS ORDERED: hydrOXYzine PAMOATE 25 MG CAPSULE (FP) PO SCH (18:00)
[2021-08-26] MEDS ORDERED: LORazepam 1 MG TABLET PO PRN (18:33)
[2021-08-26] MEDS ORDERED: methaDONE HCL 10 MG TABLET (FOR DETOX USE ONLY) PO ONE (18:33)
[2021-08-26] MEDS: MELATONIN 5 MG TABLETS PO SCH (22:28)
[2021-08-26] MEDS: THIAMINE HCL 100 MG TABLET (FP) PO SCH (22:28)
[2021-08-26] MEDS: LORazepam 2 MG TABLET PO SCH (22:29)
[2021-08-27] MEDS: LORazepam 2 MG TABLET PO SCH (05:45)
[2021-08-27] MEDS: cloNIDine HCL 0.1 MG TABLET PO PRN ×2 (05:45→22:56)
[2021-08-27] MEDS ORDERED: methaDONE HCL 10 MG TABLET (FOR DETOX USE ONLY) ONE (09:03)
[2021-08-27] MEDS ORDERED: diazePAM 5 MG TABLET PO PRN (10:49)
[2021-08-27] MEDS: amLODIPine BESYLATE 10 MG TABLET (FP) PO SCH (10:56)
[2021-08-27] MEDS: PRENATAL VITAMINS W/ FOLIC ACID TABLET (FP) PO SCH (10:56)
[2021-08-27] MEDS: LISINOPRIL 10 MG TABLET PO SCH (10:56)
[2021-08-27] MEDS: NICOTINE 14 MG/24 HOURS TOPICAL PATCH TD SCH (11:00)
[2021-08-27 14:30] LABS: HEMATOCRIT 38.9 % (32.4-45.2); MCH 30.1 pg (25.7-33.7); MCHC 33.3 g/dl (32.0-36.0); MEAN CELL VOLUME 90.5 fl (80-96); MEAN PLT VOLUME 10.1 fl (7.5-11.1); PLATELET COUNT 263 10^3/uL (134-434); WHITE BLOOD COUNT 4.4 K/mm3 (4.0-10.0)
[2021-08-27 14:42] LABS: ALBUMIN 3.2 g/dl (3.4-5.0); BLOOD UREA NITROGEN 15.8 mg/dL (7-18); CALCIUM 9.4 mg/dL (8.5-10.1)
[2021-08-27 14:46] LABS: BILIRUBIN,TOTAL 0.4 mg/dL (0.2-1); TOT PROT 6.2 g/dl (6.4-8.2)
[2021-08-27] MEDS ORDERED: POTASSIUM CHLORIDE ORAL LIQUID 20 MEQ/15 ML PO ONE (15:30)
[2021-08-27] MEDS: MELATONIN 5 MG TABLETS PO SCH (22:54)
[2021-08-27] MEDS: THIAMINE HCL 100 MG TABLET (FP) PO SCH (22:54)
[2021-08-28] MEDS ORDERED: LORazepam 1 MG TABLET PO SCH (05:00)
[2021-08-28] MEDS: ACETAMINOPHEN 325 MG TABLET (FP) PO PRN ×2 (07:18→21:38)
[2021-08-28] MEDS ORDERED: methaDONE HCL 10 MG TABLET (FOR DETOX USE ONLY) PO ONE (10:00)
[2021-08-28] MEDS: NICOTINE 14 MG/24 HOURS TOPICAL PATCH TD SCH (10:41)
[2021-08-28] MEDS: PRENATAL VITAMINS W/ FOLIC ACID TABLET (FP) PO SCH (10:42)
[2021-08-28] MEDS: LISINOPRIL 10 MG TABLET PO SCH (10:42)
[2021-08-28] MEDS: amLODIPine BESYLATE 10 MG TABLET (FP) PO SCH (10:42)
[2021-08-28] MEDS ORDERED: QUEtiapine FUMARATE 100 MG TABLET (FP) PO SCH (22:00)
[2021-08-28] MEDS: THIAMINE HCL 100 MG TABLET (FP) PO SCH (22:43)
[2021-08-28] MEDS: MELATONIN 5 MG TABLETS PO SCH (22:43)
[2021-08-29] MEDS ORDERED: LORazepam 0.5 MG TABLET PO PRN
[2021-08-29] MEDS ORDERED: LORazepam 0.5 MG TABLET PO SCH (05:00)
[2021-08-29] MEDS ORDERED: methaDONE HCL 10 MG TABLET (FOR DETOX USE ONLY) ONE (08:59)
[2021-08-29 09:48] VITALS: BP 149/76; PULSE 69; TEMP 98.6
[2021-08-29] MEDS: PRENATAL VITAMINS W/ FOLIC ACID TABLET (FP) PO SCH (10:52)
[2021-08-29] MEDS: amLODIPine BESYLATE 10 MG TABLET (FP) PO SCH (10:53)
[2021-08-29] MEDS: LISINOPRIL 10 MG TABLET PO SCH (10:53)
[2021-08-29] MEDS: ACETAMINOPHEN 325 MG TABLET (FP) PO PRN (10:53)
[2021-08-29] MEDS: NICOTINE 14 MG/24 HOURS TOPICAL PATCH TD SCH (10:56)
[2021-08-30] MEDS ORDERED: LORazepam 0.5 MG TABLET PO ONE (05:00)
[2021-08-30] MEDS ORDERED: methaDONE HCL 10 MG TABLET (FOR DETOX USE ONLY) PO ONE (10:00)
== END 2021-08-29 13:10 | disposition left against medical advice (07) | DRG 770 ==
LOC: YASAS 13:55 → Y6N 17:36
PROVIDERS: ADMIT Allergy & Immunology; ATTEND Surgery
PROC: HZ2ZZZZ Detoxification Services for Substance Abuse Treatment (ICD-10-PCS; principal; 2021-08-26)
DX: F11.23 Opioid dependence with withdrawal (principal); F10.230 Alcohol dependence with withdrawal, uncomplicated; F14.20 Cocaine dependence, uncomplicated; F12.20 Cannabis dependence, uncomplicated; F17.210 Nicotine dependence, cigarettes, uncomplicated; F31.9 Bipolar disorder, unspecified; F41.9 Anxiety disorder, unspecified; I10 Essential (primary) hypertension; M54.50 Low back pain, unspecified; G89.29 Other chronic pain; Z86.73 Personal history of transient ischemic attack (TIA), and cerebral infarction without residual deficits; Z88.2 Allergy status to sulfonamides; Z87.19 Personal history of other diseases of the digestive system; Z28.310 Unvaccinated for COVID-19
CPT/HCPCS: 36415; 80053; 85027; 86780; C9803-CS; J0735; U0003; U0005

== ENCOUNTER 2022-02-03 16:43 | Inpatient (IN) | payer OTHER ==
[2022-02-03 18:01] VITALS: BMI 23.0
[2022-02-03] MEDS ORDERED: ONDANSETRON *ODT* 4 MG TABLET SL PRN (20:15)
[2022-02-03] MEDS ORDERED: POLYETHYLENE GLYCOL (HEALTHYLAX) 3350 17 GM PACKET PO PRN (20:15)
[2022-02-03] MEDS ORDERED: NICOTINE 10 MG CARTRIDGE (INHALER) IH PRN (20:15)
[2022-02-03] MEDS ORDERED: guaiFENesin 200 MG/10 ML 10 ML UNIT-DOSE CUPS PO PRN (20:15)
[2022-02-03] MEDS ORDERED: IBUPROFEN 400 MG TABLET (FP) PO PRN (20:15)
[2022-02-03] MEDS ORDERED: NALOXONE HCL (KLOXXADO) 8 MG SPRAY NS PRN (20:15)
[2022-02-03] MEDS ORDERED: IBUPROFEN 600 MG TABLET (FP) PO PRN (20:15)
[2022-02-03] MEDS ORDERED: NALOXONE HCL 0.4 MG/ML VIAL IM PRN (20:15)
[2022-02-03] MEDS ORDERED: LOPERAMIDE HCL 2 MG CAPSULE PO PRN (20:15)
[2022-02-03] MEDS ORDERED: MAG HYDROX/AL HYDROX/SIMETH 30 ML UNIT-DOSE CUP PO PRN (20:15)
[2022-02-03] MEDS ORDERED: MAGNESIUM HYDROX 2400MG/30ML ORAL SUSPENSION 30 ML CUP PO PRN (20:15)
[2022-02-03] MEDS ORDERED: DICYCLOMINE HCL 10 MG CAPSULE PO PRN (20:15)
[2022-02-03] MEDS ORDERED: ACETAMINOPHEN 325 MG TABLET (FP) PO PRN ×2 (20:15)
[2022-02-03] MEDS ORDERED: BENZOCAINE/MENTHOL (CHLORASEPTIC ) LOZENGE MM PRN (20:15)
[2022-02-03] MEDS ORDERED: hydrOXYzine PAMOATE 25 MG CAPSULE (FP) PO PRN (20:15)
[2022-02-03] MEDS ORDERED: BISMUTH SUBSALICYLATE 524 MG/30 ML PO PRN (20:15)
[2022-02-03] MEDS ORDERED: P-EPHED 60MG/TRIPROLIDI 2.5MG TABLET PO PRN (20:15)
[2022-02-03] MEDS ORDERED: hydrALAZINE HCL 25 MG TABLET (FP) PO ONE (23:01)
[2022-02-03] MEDS: MELATONIN 5 MG TABLETS PO SCH (23:17)
[2022-02-03] MEDS: METHOCARBAMOL 500 MG TABLET PO PRN (23:18)
[2022-02-03] MEDS: diazePAM 5 MG TABLET PO PRN (23:18)
[2022-02-03] MEDS: THIAMINE HCL 100 MG TABLET (FP) PO SCH (23:18)
[2022-02-04] MEDS ORDERED: methaDONE HCL 10 MG TABLET (FOR DETOX USE ONLY) PO ONE (09:43)
[2022-02-04 10:19] LABS: HEMATOCRIT 43.4 % (32.4-45.2); HEMOGLOBIN 14.2 GM/dL (10.7-15.3); MCH 29.4 pg (25.7-33.7); MCHC 32.6 g/dl (32.0-36.0); MEAN PLT VOLUME 10.5 fl (7.5-11.1); PLATELET COUNT 279 10^3/uL (134-434); RBC 4.83 M/mm3 (3.60-5.2); RDW 14.9 % (11.6-15.6)
[2022-02-04] MEDS: PRENATAL VITAMINS W/ FOLIC ACID TABLET (FP) PO SCH (10:25)
[2022-02-04] MEDS: amLODIPine BESYLATE 10 MG TABLET (FP) PO SCH (10:25)
[2022-02-04 10:31] LABS: WHITE BLOOD COUNT 8.1 K/mm3 (4.0-10.0)
[2022-02-04 10:34] LABS: ALBUMIN 3.2 g/dl (3.4-5.0); CALCIUM 9.4 mg/dL (8.5-10.1)
[2022-02-04 10:35] LABS: BLOOD UREA NITROGEN 13.9 mg/dL (7-18)
[2022-02-04 10:38] LABS: CREATININE 1.1 mg/dL (0.55-1.3)
[2022-02-04 10:39] LABS: BILIRUBIN,TOTAL 0.2 mg/dL (0.2-1); TOT PROT 6.5 g/dl (6.4-8.2)
[2022-02-04 11:07] LABS: ANISOCYTOSIS 0; HELMET CELLS 0; HOWELL-JOLLY BODIES 0; MACROCYTOSIS 0; OVALOCYTE 0; ROULEAU 0; SICKELED CELLS 0; TARGET CELLS 0; TEAR DROP CELLS 0; TOXIC GRANULATION 0
[2022-02-04] MEDS: diazePAM 5 MG TABLET PO PRN ×2 (11:49→17:12)
[2022-02-04] MEDS: METHOCARBAMOL 500 MG TABLET PO PRN (13:14)
[2022-02-04] MEDS: cloNIDine HCL 0.1 MG TABLET PO PRN (13:14)
[2022-02-04] MEDS: QUEtiapine FUMARATE 100 MG TABLET (FP) PO SCH (22:17)
[2022-02-04] MEDS: THIAMINE HCL 100 MG TABLET (FP) PO SCH (22:17)
[2022-02-04] MEDS: MELATONIN 5 MG TABLETS PO SCH (22:17)
[2022-02-05] MEDS: amLODIPine BESYLATE 10 MG TABLET (FP) PO SCH (10:15)
[2022-02-05] MEDS: PRENATAL VITAMINS W/ FOLIC ACID TABLET (FP) PO SCH (10:15)
[2022-02-05] MEDS: diazePAM 5 MG TABLET PO PRN ×2 (10:18→15:28)
[2022-02-05] MEDS: MELATONIN 5 MG TABLETS PO SCH (22:56)
[2022-02-05] MEDS: THIAMINE HCL 100 MG TABLET (FP) PO SCH (22:56)
[2022-02-05] MEDS: QUEtiapine FUMARATE 100 MG TABLET (FP) PO SCH (22:56)
[2022-02-05] MEDS: HYDROCHLOROTHIAZIDE 25 MG TABLET (FP) PO SCH (22:57)
[2022-02-05] MEDS: METHOCARBAMOL 500 MG TABLET PO PRN (22:57)
[2022-02-06] MEDS ORDERED: methaDONE HCL 10 MG TABLET (FOR DETOX USE ONLY) PO ONE (10:00)
[2022-02-06] MEDS: HYDROCHLOROTHIAZIDE 25 MG TABLET (FP) PO SCH ×2 (10:41→22:35)
[2022-02-06] MEDS: PRENATAL VITAMINS W/ FOLIC ACID TABLET (FP) PO SCH (10:41)
[2022-02-06] MEDS: amLODIPine BESYLATE 10 MG TABLET (FP) PO SCH (10:41)
[2022-02-06] MEDS: METHOCARBAMOL 500 MG TABLET PO PRN (10:41)
[2022-02-06] MEDS: diazePAM 5 MG TABLET PO PRN ×3 (10:44→22:36)
[2022-02-06] MEDS: cloNIDine HCL 0.1 MG TABLET PO PRN ×2 (17:07→17:10)
[2022-02-06] MEDS: MELATONIN 5 MG TABLETS PO SCH (22:35)
[2022-02-06] MEDS: THIAMINE HCL 100 MG TABLET (FP) PO SCH (22:35)
[2022-02-06] MEDS: QUEtiapine FUMARATE 100 MG TABLET (FP) PO SCH (22:35)
[2022-02-07] MEDS: amLODIPine BESYLATE 10 MG TABLET (FP) PO SCH (10:20)
[2022-02-07] MEDS: HYDROCHLOROTHIAZIDE 25 MG TABLET (FP) PO SCH ×2 (10:20→22:54)
[2022-02-07] MEDS: METHOCARBAMOL 500 MG TABLET PO PRN ×2 (10:20→22:56)
[2022-02-07] MEDS: PRENATAL VITAMINS W/ FOLIC ACID TABLET (FP) PO SCH (10:21)
[2022-02-07] MEDS: hydrALAZINE HCL 25 MG TABLET (FP) PO SCH ×2 (14:03→22:55)
[2022-02-07] MEDS: THIAMINE HCL 100 MG TABLET (FP) PO SCH (22:54)
[2022-02-07] MEDS: MELATONIN 5 MG TABLETS PO SCH (22:54)
[2022-02-07] MEDS: QUEtiapine FUMARATE 100 MG TABLET (FP) PO SCH (22:54)
[2022-02-08] MEDS: hydrALAZINE HCL 25 MG TABLET (FP) PO SCH (07:25)
[2022-02-08 08:50] VITALS: BP 130/92; PULSE 92; RESP 16; TEMP 96.8
[2022-02-08] MEDS ORDERED: methaDONE HCL 10 MG TABLET (FOR DETOX USE ONLY) PO ONE (10:00)
[2022-02-08] MEDS: PRENATAL VITAMINS W/ FOLIC ACID TABLET (FP) PO SCH (10:58)
[2022-02-08] MEDS: METHOCARBAMOL 500 MG TABLET PO PRN (10:59)
[2022-02-08] MEDS: HYDROCHLOROTHIAZIDE 25 MG TABLET (FP) PO SCH (10:59)
[2022-02-08] MEDS: amLODIPine BESYLATE 10 MG TABLET (FP) PO SCH (10:59)
== END 2022-02-08 13:30 | disposition home or self-care (01) | DRG 773 ==
LOC: YASAS 16:43 → Y6N 21:33 → UNDOADMIN 21:33
PROVIDERS: ADMIT Allergy & Immunology; ATTEND Surgery
PROC: HZ2ZZZZ Detoxification Services for Substance Abuse Treatment (ICD-10-PCS; principal; 2022-02-03)
DX: F11.23 Opioid dependence with withdrawal (principal); F10.230 Alcohol dependence with withdrawal, uncomplicated; F14.20 Cocaine dependence, uncomplicated; F12.20 Cannabis dependence, uncomplicated; F17.210 Nicotine dependence, cigarettes, uncomplicated; F31.9 Bipolar disorder, unspecified; F19.24 Other psychoactive substance dependence with psychoactive substance-induced mood disorder; F19.282 Other psychoactive substance dependence with psychoactive substance-induced sleep disorder; F19.280 Other psychoactive substance dependence with psychoactive substance-induced anxiety disorder; I10 Essential (primary) hypertension; E11.9 Type 2 diabetes mellitus without complications; M19.90 Unspecified osteoarthritis, unspecified site; G47.00 Insomnia, unspecified; M54.59 Other low back pain; G89.29 Other chronic pain; Z88.1 Allergy status to other antibiotic agents; Z88.2 Allergy status to sulfonamides; Z86.69 Personal history of other diseases of the nervous system and sense organs; Z86.73 Personal history of transient ischemic attack (TIA), and cerebral infarction without residual deficits; Z91.14 Patient's other noncompliance with medication regimen; Z28.310 Unvaccinated for COVID-19; Z56.0 Unemployment, unspecified
CPT/HCPCS: 36415; 71045-TC-FY; 80053; 85027; 86780; 93005; 93010; C9803-CS; U0003; U0005

== ENCOUNTER 2022-05-13 16:48 | Inpatient (IN) | payer OTHER ==
[2022-05-13 19:14] VITALS: BMI 23.5
[2022-05-13] MEDS ORDERED: ACETAMINOPHEN 325 MG TABLET (FP) PO PRN (20:05)
[2022-05-13] MEDS ORDERED: POLYETHYLENE GLYCOL (HEALTHYLAX) 3350 17 GM PACKET PO PRN (20:05)
[2022-05-13] MEDS ORDERED: BENZOCAINE/MENTHOL (CHLORASEPTIC ) LOZENGE MM PRN (20:05)
[2022-05-13] MEDS ORDERED: LOPERAMIDE HCL 2 MG CAPSULE PO PRN (20:05)
[2022-05-13] MEDS ORDERED: IBUPROFEN 400 MG TABLET (FP) PO PRN (20:05)
[2022-05-13] MEDS ORDERED: MAGNESIUM HYDROX 2400MG/30ML ORAL SUSPENSION 30 ML CUP PO PRN (20:05)
[2022-05-13] MEDS ORDERED: NICOTINE 10 MG CARTRIDGE (INHALER) IH PRN (20:05)
[2022-05-13] MEDS ORDERED: NALOXONE HCL 0.4 MG/ML VIAL IM PRN (20:05)
[2022-05-13] MEDS ORDERED: BENZONATATE 200 MG CAPSULE PO PRN (20:05)
[2022-05-13] MEDS ORDERED: ONDANSETRON *ODT* 4 MG TABLET SL PRN (20:05)
[2022-05-13] MEDS ORDERED: NALOXONE HCL (KLOXXADO) 8 MG SPRAY NS PRN (20:05)
[2022-05-13] MEDS ORDERED: MAG HYDROX/AL HYDROX/SIMETH 30 ML UNIT-DOSE CUP PO PRN (20:05)
[2022-05-13] MEDS ORDERED: guaiFENesin 600 MG TABLET.ER (FP) PO PRN (20:05)
[2022-05-13] MEDS ORDERED: BISMUTH SUBSALICYLATE 524 MG/30 ML PO PRN (20:05)
[2022-05-13] MEDS ORDERED: DICYCLOMINE HCL 10 MG CAPSULE PO PRN (20:05)
[2022-05-13] MEDS ORDERED: methaDONE HCL 10 MG TABLET (FOR DETOX USE ONLY) PO ONE ×2 (20:10→22:00)
[2022-05-13] MEDS ORDERED: chlordiazePOXIDE HCL 25 MG CAPSULE PO PRN (20:10)
[2022-05-13] MEDS ORDERED: diazePAM 5 MG TABLET PO PRN (22:03)
[2022-05-13] MEDS: diazePAM 5 MG TABLET PO SCH (22:15)
[2022-05-13] MEDS: THIAMINE HCL 100 MG TABLET (FP) PO SCH (22:15)
[2022-05-13] MEDS: MELATONIN 5 MG TABLETS PO SCH (22:17)
[2022-05-13] MEDS ORDERED: chlordiazePOXIDE HCL 25 MG CAPSULE PO SCH (23:00)
[2022-05-14] MEDS: diazePAM 5 MG TABLET PO SCH ×4 (06:12→22:24)
[2022-05-14] MEDS: PRENATAL VITAMINS W/ FOLIC ACID TABLET (FP) PO SCH (10:46)
[2022-05-14 10:52] LABS: HEMOGLOBIN 13.6 GM/dL (10.7-15.3); MCH 30.2 pg (25.7-33.7); MCHC 34.1 g/dl (32.0-36.0); MEAN CELL VOLUME 88.5 fl (80-96); MEAN PLT VOLUME 9.9 fl (7.5-11.1); PLATELET COUNT 211 10^3/uL (134-434); RBC 4.53 M/mm3 (3.60-5.2); WHITE BLOOD COUNT 4.9 K/mm3 (4.0-10.0)
[2022-05-14 10:57] LABS: ALBUMIN 3.2 g/dl (3.4-5.0); BLOOD UREA NITROGEN 19.8 mg/dL (7-18); CALCIUM 9.3 mg/dL (8.5-10.1)
[2022-05-14 11:00] LABS: CREATININE 0.9 mg/dL (0.55-1.3)
[2022-05-14 11:02] LABS: BILIRUBIN,TOTAL 0.3 mg/dL (0.2-1); TOT PROT 6.7 g/dl (6.4-8.2)
[2022-05-14] MEDS: NICOTINE 21 MG/24 HOURS TOPICAL PATCH TD SCH (11:25)
[2022-05-14] MEDS: cloNIDine HCL 0.1 MG TABLET PO PRN ×2 (17:30→23:11)
[2022-05-14] MEDS: QUEtiapine FUMARATE 100 MG TABLET (FP) PO SCH (22:24)
[2022-05-14] MEDS: THIAMINE HCL 100 MG TABLET (FP) PO SCH (22:24)
[2022-05-14] MEDS: MELATONIN 5 MG TABLETS PO SCH (22:24)
[2022-05-15] MEDS ORDERED: chlordiazePOXIDE HCL 25 MG CAPSULE PO SCH (05:00)
[2022-05-15] MEDS: diazePAM 5 MG TABLET PO SCH ×3 (06:02→22:40)
[2022-05-15] MEDS: cloNIDine HCL 0.1 MG TABLET PO PRN ×2 (06:02→21:40)
[2022-05-15] MEDS ORDERED: methaDONE HCL 10 MG TABLET (FOR DETOX USE ONLY) PO ONE (10:00)
[2022-05-15] MEDS: NICOTINE 21 MG/24 HOURS TOPICAL PATCH TD SCH (10:41)
[2022-05-15] MEDS: PRENATAL VITAMINS W/ FOLIC ACID TABLET (FP) PO SCH (10:41)
[2022-05-15] MEDS: METHOCARBAMOL 500 MG TABLET PO PRN ×2 (10:42→22:41)
[2022-05-15] MEDS: amLODIPine BESYLATE 10 MG TABLET (FP) PO SCH (19:11)
[2022-05-15] MEDS: QUEtiapine FUMARATE 100 MG TABLET (FP) PO SCH (22:40)
[2022-05-15] MEDS: MELATONIN 5 MG TABLETS PO SCH (22:40)
[2022-05-15] MEDS: THIAMINE HCL 100 MG TABLET (FP) PO SCH (22:40)
[2022-05-16] MEDS ORDERED: chlordiazePOXIDE HCL 10 MG CAPSULE PO PRN
[2022-05-16] MEDS ORDERED: chlordiazePOXIDE HCL 10 MG CAPSULE PO SCH (05:00)
[2022-05-16] MEDS: diazePAM 5 MG TABLET PO SCH ×2 (06:16→17:05)
[2022-05-16] MEDS: amLODIPine BESYLATE 10 MG TABLET (FP) PO SCH (09:53)
[2022-05-16] MEDS: PRENATAL VITAMINS W/ FOLIC ACID TABLET (FP) PO SCH (09:53)
[2022-05-16] MEDS: NICOTINE 21 MG/24 HOURS TOPICAL PATCH TD SCH (09:55)
[2022-05-16] MEDS: THIAMINE HCL 100 MG TABLET (FP) PO SCH (21:22)
[2022-05-16] MEDS: QUEtiapine FUMARATE 100 MG TABLET (FP) PO SCH (21:22)
[2022-05-16] MEDS: METHOCARBAMOL 500 MG TABLET PO PRN (21:22)
[2022-05-16] MEDS: MELATONIN 5 MG TABLETS PO SCH (21:23)
[2022-05-17] MEDS ORDERED: chlordiazePOXIDE HCL 10 MG CAPSULE PO SCH (05:00)
[2022-05-17] MEDS ORDERED: diazePAM 5 MG TABLET PO ONE (06:00)
[2022-05-17] MEDS ORDERED: methaDONE HCL 10 MG TABLET (FOR DETOX USE ONLY) PO ONE (10:00)
[2022-05-17] MEDS: PRENATAL VITAMINS W/ FOLIC ACID TABLET (FP) PO SCH (10:37)
[2022-05-17] MEDS: NICOTINE 21 MG/24 HOURS TOPICAL PATCH TD SCH (10:38)
[2022-05-17] MEDS: amLODIPine BESYLATE 10 MG TABLET (FP) PO SCH (10:38)
[2022-05-17 14:47] VITALS: RESP 18
[2022-05-17] MEDS: METHOCARBAMOL 500 MG TABLET PO PRN (20:54)
[2022-05-17] MEDS: IBUPROFEN 600 MG TABLET (FP) PO PRN (20:54)
[2022-05-17] MEDS: MELATONIN 5 MG TABLETS PO SCH (22:45)
[2022-05-17] MEDS: QUEtiapine FUMARATE 100 MG TABLET (FP) PO SCH (22:45)
[2022-05-17] MEDS: THIAMINE HCL 100 MG TABLET (FP) PO SCH (22:45)
[2022-05-18] MEDS ORDERED: chlordiazePOXIDE HCL 10 MG CAPSULE PO ONE (05:00)
[2022-05-18 09:30] VITALS: BP 142/98; PULSE 69; TEMP 98.1
[2022-05-18] MEDS: amLODIPine BESYLATE 10 MG TABLET (FP) PO SCH (10:46)
[2022-05-18] MEDS: PRENATAL VITAMINS W/ FOLIC ACID TABLET (FP) PO SCH (10:46)
[2022-05-18] MEDS: NICOTINE 21 MG/24 HOURS TOPICAL PATCH TD SCH (10:46)
[2022-05-18] MEDS: IBUPROFEN 600 MG TABLET (FP) PO PRN (10:47)
== END 2022-05-18 11:00 | disposition home or self-care (01) | DRG 773 ==
LOC: YASAS 16:48 → Y3N 20:57
PROVIDERS: ADMIT Allergy & Immunology; ATTEND Surgery
PROC: HZ2ZZZZ Detoxification Services for Substance Abuse Treatment (ICD-10-PCS; principal; 2022-05-13)
DX: F11.23 Opioid dependence with withdrawal (principal); F10.230 Alcohol dependence with withdrawal, uncomplicated; F14.20 Cocaine dependence, uncomplicated; F12.20 Cannabis dependence, uncomplicated; F17.210 Nicotine dependence, cigarettes, uncomplicated; F19.282 Other psychoactive substance dependence with psychoactive substance-induced sleep disorder; F19.24 Other psychoactive substance dependence with psychoactive substance-induced mood disorder; F31.9 Bipolar disorder, unspecified; F41.9 Anxiety disorder, unspecified; I10 Essential (primary) hypertension; J44.9 Chronic obstructive pulmonary disease, unspecified; M19.90 Unspecified osteoarthritis, unspecified site; Z86.73 Personal history of transient ischemic attack (TIA), and cerebral infarction without residual deficits; Z88.2 Allergy status to sulfonamides; Z28.310 Unvaccinated for COVID-19; Z28.9 Immunization not carried out for unspecified reason
CPT/HCPCS: 36415; 80053; 85027; 86780; C9803-CS; U0003; U0005

== ENCOUNTER 2022-10-21 11:39 | Inpatient (IN) | payer OTHER ==
[2022-10-21 12:11] VITALS: BMI 23.5
[2022-10-21] MEDS ORDERED: NICOTINE POLACRILEX 4 MG GUM BUC PRN (12:44)
[2022-10-21] MEDS ORDERED: DICYCLOMINE HCL 10 MG CAPSULE PO PRN (12:44)
[2022-10-21] MEDS ORDERED: NALOXONE HCL 0.4 MG/ML VIAL IM PRN (12:44)
[2022-10-21] MEDS ORDERED: BENZOCAINE/MENTHOL (CHLORASEPTIC ) LOZENGE MM PRN (12:44)
[2022-10-21] MEDS ORDERED: MAG HYDROX/AL HYDROX/SIMETH 30 ML UNIT-DOSE CUP PO PRN (12:44)
[2022-10-21] MEDS ORDERED: IBUPROFEN 400 MG TABLET (FP) PO PRN (12:44)
[2022-10-21] MEDS ORDERED: BENZONATATE 200 MG CAPSULE PO PRN (12:44)
[2022-10-21] MEDS ORDERED: POLYETHYLENE GLYCOL (HEALTHYLAX) 3350 17 GM PACKET PO PRN (12:44)
[2022-10-21] MEDS ORDERED: diazePAM 5 MG TABLET PO PRN (12:44)
[2022-10-21] MEDS ORDERED: LOPERAMIDE HCL 2 MG CAPSULE PO PRN (12:44)
[2022-10-21] MEDS ORDERED: BISMUTH SUBSALICYLATE 524 MG/30 ML PO PRN (12:44)
[2022-10-21] MEDS ORDERED: MAGNESIUM HYDROX 2400MG/30ML ORAL SUSPENSION 30 ML CUP PO PRN (12:44)
[2022-10-21] MEDS ORDERED: NALOXONE HCL (KLOXXADO) 8 MG SPRAY NS PRN (12:44)
[2022-10-21] MEDS ORDERED: guaiFENesin 600 MG TABLET.ER (FP) PO PRN (12:44)
[2022-10-21] MEDS ORDERED: ONDANSETRON *ODT* 4 MG TABLET SL PRN (12:44)
[2022-10-21] MEDS ORDERED: methaDONE HCL 10 MG TABLET (FOR DETOX USE ONLY) PO ONE (14:00)
[2022-10-21] MEDS ORDERED: methaDONE HCL 10 MG TABLET (FOR DETOX USE ONLY) ONE (14:03)
[2022-10-21] MEDS ORDERED: PRENATAL VITAMINS W/ FOLIC ACID TABLET (FP) PO ONE (14:04)
[2022-10-21] MEDS: PRENATAL VITAMINS W/ FOLIC ACID TABLET (FP) PO SCH (14:10)
[2022-10-21 14:58] LABS: HEMATOCRIT 41.1 % (32.4-45.2); HEMOGLOBIN 13.4 GM/dL (10.7-15.3); MCH 29.8 pg (25.7-33.7); MCHC 32.5 g/dl (32.0-36.0); MEAN CELL VOLUME 91.7 fl (80-96); MEAN PLT VOLUME 10.2 fl (7.5-11.1); PLATELET COUNT 241 10^3/uL (134-434); RBC 4.48 M/mm3 (3.60-5.2); RDW 14.6 % (11.6-15.6); WHITE BLOOD COUNT 9.8 K/mm3 (4.0-10.0)
[2022-10-21 15:03] LABS: POTASSIUM 3.7 mmol/L (3.5-5.1)
[2022-10-21 15:14] LABS: ALBUMIN 3.6 g/dl (3.4-5.0); BLOOD UREA NITROGEN 19.5 mg/dL (7-18); CALCIUM 9.2 mg/dL (8.5-10.1)
[2022-10-21 15:17] LABS: CREATININE 1.1 mg/dL (0.55-1.3)
[2022-10-21 15:19] LABS: BILIRUBIN,TOTAL 0.2 mg/dL (0.2-1); TOT PROT 7.3 g/dl (6.4-8.2)
[2022-10-21] MEDS: cloNIDine HCL 0.1 MG TABLET PO PRN (15:33)
[2022-10-21] MEDS: THIAMINE HCL 100 MG TABLET (FP) PO SCH (22:05)
[2022-10-21] MEDS: MELATONIN 5 MG TABLETS PO SCH (22:05)
[2022-10-21] MEDS: diazePAM 5 MG TABLET PO SCH (22:06)
[2022-10-21] MEDS: METHOCARBAMOL 500 MG TABLET PO PRN (22:06)
[2022-10-21] MEDS: QUEtiapine FUMARATE 50 MG TABLET PO PRN (22:09)
[2022-10-22] MEDS: diazePAM 5 MG TABLET PO SCH ×4 (05:39→22:32)
[2022-10-22] MEDS: hydrOXYzine PAMOATE 25 MG CAPSULE (FP) PO PRN (10:24)
[2022-10-22] MEDS: METHOCARBAMOL 500 MG TABLET PO PRN (10:24)
[2022-10-22] MEDS: PRENATAL VITAMINS W/ FOLIC ACID TABLET (FP) PO SCH (10:24)
[2022-10-22] MEDS: amLODIPine BESYLATE 10 MG TABLET (FP) PO SCH (10:24)
[2022-10-22] MEDS: cloNIDine HCL 0.1 MG TABLET PO PRN (11:56)
[2022-10-22] MEDS: MELATONIN 5 MG TABLETS PO SCH (22:31)
[2022-10-22] MEDS: QUEtiapine FUMARATE 50 MG TABLET PO PRN (22:31)
[2022-10-22] MEDS: THIAMINE HCL 100 MG TABLET (FP) PO SCH (22:31)
[2022-10-23] MEDS: diazePAM 5 MG TABLET PO SCH ×3 (06:05→22:32)
[2022-10-23] MEDS: IBUPROFEN 600 MG TABLET (FP) PO PRN ×2 (08:08→13:28)
[2022-10-23] MEDS: METHOCARBAMOL 500 MG TABLET PO PRN ×2 (08:08→15:20)
[2022-10-23] MEDS ORDERED: methaDONE HCL 10 MG TABLET (FOR DETOX USE ONLY) PO ONE (10:00)
[2022-10-23] MEDS: PRENATAL VITAMINS W/ FOLIC ACID TABLET (FP) PO SCH (10:18)
[2022-10-23] MEDS: amLODIPine BESYLATE 10 MG TABLET (FP) PO SCH (10:18)
[2022-10-23] MEDS: cloNIDine HCL 0.1 MG TABLET PO PRN ×2 (10:50→22:32)
[2022-10-23] MEDS: MELATONIN 5 MG TABLETS PO SCH (22:32)
[2022-10-23] MEDS: THIAMINE HCL 100 MG TABLET (FP) PO SCH (22:32)
[2022-10-23] MEDS: QUEtiapine FUMARATE 50 MG TABLET PO PRN (22:32)
[2022-10-23] MEDS: ACETAMINOPHEN 325 MG TABLET (FP) PO PRN (22:32)
[2022-10-24] MEDS: ACETAMINOPHEN 325 MG TABLET (FP) PO PRN ×2 (04:07→10:19)
[2022-10-24] MEDS: diazePAM 5 MG TABLET PO SCH ×2 (05:59→17:06)
[2022-10-24] MEDS: IBUPROFEN 600 MG TABLET (FP) PO PRN ×2 (06:01→17:06)
[2022-10-24] MEDS: PRENATAL VITAMINS W/ FOLIC ACID TABLET (FP) PO SCH (10:15)
[2022-10-24] MEDS: amLODIPine BESYLATE 10 MG TABLET (FP) PO SCH (10:15)
[2022-10-24] MEDS: METHYL SALICYLATE/MENTHOL OINT 30 GM TUBE TP SCH (16:03)
[2022-10-24] MEDS: LIDOCAINE 5% TOPICAL PATCH TP SCH (16:05)
[2022-10-24] MEDS: METHOCARBAMOL 500 MG TABLET PO PRN (17:06)
[2022-10-24] MEDS ORDERED: LIDOCAINE PATCH REMOVAL MC SCH (22:00)
[2022-10-24] MEDS: hydrOXYzine PAMOATE 25 MG CAPSULE (FP) PO PRN (22:06)
[2022-10-24] MEDS: THIAMINE HCL 100 MG TABLET (FP) PO SCH (22:06)
[2022-10-24] MEDS: MELATONIN 5 MG TABLETS PO SCH (22:06)
[2022-10-24] MEDS: QUEtiapine FUMARATE 50 MG TABLET PO PRN (22:06)
[2022-10-25] MEDS: ACETAMINOPHEN 325 MG TABLET (FP) PO PRN (05:50)
[2022-10-25] MEDS ORDERED: diazePAM 5 MG TABLET PO ONE (06:00)
[2022-10-25 08:49] VITALS: BP 186/115; PULSE 77; RESP 16; TEMP 98.7
[2022-10-25] MEDS: METHOCARBAMOL 500 MG TABLET PO PRN (09:23)
[2022-10-25] MEDS: LIDOCAINE 5% TOPICAL PATCH TP SCH (09:23)
[2022-10-25] MEDS: amLODIPine BESYLATE 10 MG TABLET (FP) PO SCH (09:23)
[2022-10-25] MEDS: hydrOXYzine PAMOATE 25 MG CAPSULE (FP) PO PRN (09:23)
[2022-10-25] MEDS: PRENATAL VITAMINS W/ FOLIC ACID TABLET (FP) PO SCH (09:24)
[2022-10-25] MEDS: METHYL SALICYLATE/MENTHOL OINT 30 GM TUBE TP SCH (09:24)
[2022-10-25] MEDS ORDERED: methaDONE HCL 10 MG TABLET (FOR DETOX USE ONLY) PO ONE (10:00)
== END 2022-10-25 10:04 | disposition home or self-care (01) | DRG 773 ==
LOC: YASAS 11:39 → Y6N 14:58
PROVIDERS: ADMIT Allergy & Immunology; ATTEND Surgery
PROC: HZ2ZZZZ Detoxification Services for Substance Abuse Treatment (ICD-10-PCS; principal; 2022-10-21)
DX: F11.23 Opioid dependence with withdrawal (principal); F10.230 Alcohol dependence with withdrawal, uncomplicated; F14.20 Cocaine dependence, uncomplicated; F16.10 Hallucinogen abuse, uncomplicated; F12.20 Cannabis dependence, uncomplicated; F17.210 Nicotine dependence, cigarettes, uncomplicated; F19.282 Other psychoactive substance dependence with psychoactive substance-induced sleep disorder; F19.280 Other psychoactive substance dependence with psychoactive substance-induced anxiety disorder; F19.24 Other psychoactive substance dependence with psychoactive substance-induced mood disorder; F31.81 Bipolar II disorder; F41.9 Anxiety disorder, unspecified; I10 Essential (primary) hypertension; M19.90 Unspecified osteoarthritis, unspecified site; M54.50 Low back pain, unspecified; Z99.89 Dependence on other enabling machines and devices; Z86.73 Personal history of transient ischemic attack (TIA), and cerebral infarction without residual deficits; Z88.2 Allergy status to sulfonamides; Z86.59 Personal history of other mental and behavioral disorders; Z87.19 Personal history of other diseases of the digestive system; Z28.310 Unvaccinated for COVID-19; Z28.9 Immunization not carried out for unspecified reason
CPT/HCPCS: 36415; 80053; 85027; 86780; 87635; 87811

== ENCOUNTER 2023-09-17 15:56 | Inpatient (IN) | payer OTHER ==
[2023-09-17 16:53] VITALS: BMI 21.1
[2023-09-17] MEDS ORDERED: cloNIDine HCL 0.1 MG TABLET PO PRN (17:35)
[2023-09-17] MEDS ORDERED: BENZOCAINE/MENTHOL (CHLORASEPTIC ) LOZENGE MM PRN (17:40)
[2023-09-17] MEDS ORDERED: LOPERAMIDE HCL 2 MG CAPSULE PO PRN (17:40)
[2023-09-17] MEDS ORDERED: DICYCLOMINE HCL 10 MG CAPSULE PO PRN (17:40)
[2023-09-17] MEDS ORDERED: POLYETHYLENE GLYCOL (HEALTHYLAX) 3350 17 GM PACKET PO PRN (17:40)
[2023-09-17] MEDS ORDERED: MAGNESIUM HYDROX 2400MG/30ML ORAL SUSPENSION 30 ML CUP PO PRN (17:40)
[2023-09-17] MEDS ORDERED: guaiFENesin 600 MG TABLET.ER (FP) PO PRN (17:40)
[2023-09-17] MEDS ORDERED: NALOXONE HCL 0.4 MG/ML VIAL IM PRN (17:40)
[2023-09-17] MEDS ORDERED: MAG HYDROX/AL HYDROX/SIMETH 30 ML UNIT-DOSE CUP PO PRN (17:40)
[2023-09-17] MEDS ORDERED: NALOXONE (NARCAN) HCL 4 MG/0.1 ML SPRAY NS PRN (17:40)
[2023-09-17] MEDS ORDERED: IBUPROFEN 400 MG TABLET (FP) PO PRN (17:40)
[2023-09-17] MEDS ORDERED: ONDANSETRON *ODT* 4 MG TABLET SL PRN (17:40)
[2023-09-17] MEDS ORDERED: BISMUTH SUBSALICYLATE 524 MG/30 ML PO PRN (17:40)
[2023-09-17] MEDS ORDERED: BENZONATATE 200 MG CAPSULE PO PRN (17:40)
[2023-09-17] MEDS ORDERED: diazePAM 5 MG TABLET ONE (18:17)
[2023-09-17] MEDS ORDERED: cloNIDine HCL 0.1 MG TABLET ONE (18:18)
[2023-09-17] MEDS ORDERED: methaDONE HCL 10 MG TABLET (FOR DETOX USE ONLY) ONE (18:18)
[2023-09-17] MEDS: methaDONE HCL 10 MG TABLET (FOR DETOX USE ONLY) PO ONE (18:25)
[2023-09-17] MEDS: cloNIDine HCL 0.1 MG TABLET PO PRN (18:28)
[2023-09-17] MEDS: diazePAM 5 MG TABLET PO PRN (18:28)
[2023-09-17] MEDS: THIAMINE 100 MG TABLET PO SCH (22:24)
[2023-09-17] MEDS: MELATONIN 5 MG TABLETS PO SCH (22:24)
[2023-09-17] MEDS: diazePAM 5 MG TABLET PO SCH (22:25)
[2023-09-18] MEDS: hydrOXYzine PAMOATE 25 MG CAPSULE (FP) PO PRN (06:17)
[2023-09-18] MEDS: IBUPROFEN 600 MG TABLET (FP) PO PRN (06:18)
[2023-09-18] MEDS: PRENATAL VITAMINS W/ FOLIC ACID TABLET (FP) PO SCH (09:49)
[2023-09-18] MEDS: amLODIPine BESYLATE 10 MG TABLET (FP) PO SCH (10:39)
[2023-09-18 10:40] LABS: HEMATOCRIT 40.2 % (32.4-45.2); HEMOGLOBIN 13.5 GM/dL (10.7-15.3); MCH 30.5 pg (25.7-33.7); MCHC 33.6 g/dl (32.0-36.0); MEAN CELL VOLUME 90.8 fl (80-96); MEAN PLT VOLUME 9.3 fl (7.5-11.1); PLATELET COUNT 218 10^3/uL (134-434); RBC 4.42 M/mm3 (3.60-5.2); RDW 15.3 % (11.6-15.6); WHITE BLOOD COUNT 4.1 K/mm3 (4.0-10.0)
[2023-09-18 10:43] LABS: CHLORIDE 107 mmol/L (98-107); POTASSIUM 3.5 mmol/L (3.5-5.1); SODIUM 143 mmol/L (136-145)
[2023-09-18 10:47] LABS: CALCIUM 9.1 mg/dL (8.5-10.1)
[2023-09-18 10:48] LABS: ALBUMIN 3.2 g/dl (3.4-5.0); ANION GAP 8 mmol/L (4-13); BLOOD UREA NITROGEN 14.8 mg/dL (7-18); CO2 28 mmol/L (21-32); GLUCOSE,RANDOM 100 mg/dL (74-106)
[2023-09-18 10:49] LABS: SGPT/ALT 16 U/L (13-61)
[2023-09-18 10:51] LABS: CREATININE 0.9 mg/dL (0.55-1.3); TOT PROT 6.7 g/dl (6.4-8.2)
[2023-09-18 10:52] LABS: ALK PHOS 122 U/L (45-117)
[2023-09-18 10:56] LABS: BILIRUBIN,TOTAL 0.3 mg/dL (0.2-1)
[2023-09-18 11:03] LABS: SGOT/AST 13 U/L (15-37)
[2023-09-18] MEDS: LOSARTAN POTASSIUM 50 MG TABLET PO SCH (12:57)
[2023-09-18] MEDS: METHOCARBAMOL 500 MG TABLET PO PRN (17:26)
[2023-09-19] MEDS: diazePAM 5 MG TABLET PO SCH (05:35)
[2023-09-19] MEDS: ACETAMINOPHEN 325 MG TABLET (FP) PO PRN (09:04)
[2023-09-19] MEDS: methaDONE HCL 10 MG TABLET (FOR DETOX USE ONLY) PO ONE (09:49)
[2023-09-19] MEDS: LIDOCAINE 5% TOPICAL PATCH TP SCH (11:55)
[2023-09-19] MEDS: LOSARTAN POTASSIUM 50 MG TABLET PO ONE (11:56)
[2023-09-19] MEDS: METHYL SALICYLATE/MENTHOL OINT 30 GM TUBE TP SCH (11:56)
[2023-09-19] MEDS: methaDONE HCL 10 MG TABLET PO ONE (12:00)
[2023-09-19] MEDS: CELECOXIB 100 MG CAPSULE PO SCH (12:16)
[2023-09-19] MEDS: LIDOCAINE PATCH REMOVAL MC SCH (23:10)
[2023-09-20] MEDS: diazePAM 5 MG TABLET PO SCH (05:28)
[2023-09-20] MEDS: methaDONE HCL 10 MG TABLET PO SCH (05:28)
[2023-09-20] MEDS: LOSARTAN POTASSIUM 50 MG TABLET PO SCH (07:03)
[2023-09-20] MEDS: methaDONE HCL 10 MG TABLET PO ONE (09:25)
[2023-09-21] MEDS: diazePAM 5 MG TABLET PO ONE (05:38)
[2023-09-21] MEDS ORDERED: methaDONE HCL 10 MG TABLET PO SCH (06:00)
[2023-09-21] MEDS ORDERED: methaDONE HCL 10 MG TABLET (FOR DETOX USE ONLY) PO ONE (10:00)
[2023-09-21] MEDS: QUEtiapine FUMARATE 100 MG TABLET (FP) PO SCH (22:47)
[2023-09-23 06:31] VITALS: RESP 16
[2023-09-23 10:10] VITALS: BP 115/74; PULSE 70; TEMP 98.2
== END 2023-09-23 12:25 | disposition other institution (70) | DRG 773 ==
LOC: YASAS 15:56 → Y6N 18:10
PROVIDERS: ADMIT Allergy & Immunology; ATTEND Surgery
PROC: HZ2ZZZZ Detoxification Services for Substance Abuse Treatment (ICD-10-PCS; principal; 2023-09-17)
DX: F11.23 Opioid dependence with withdrawal (principal); F10.230 Alcohol dependence with withdrawal, uncomplicated; F14.20 Cocaine dependence, uncomplicated; F12.20 Cannabis dependence, uncomplicated; F16.10 Hallucinogen abuse, uncomplicated; F41.9 Anxiety disorder, unspecified; F19.94 Other psychoactive substance use, unspecified with psychoactive substance-induced mood disorder; I10 Essential (primary) hypertension; M19.91 Primary osteoarthritis, unspecified site; M54.59 Other low back pain; G89.29 Other chronic pain; Z91.148 Patient's other noncompliance with medication regimen for other reason; Z86.73 Personal history of transient ischemic attack (TIA), and cerebral infarction without residual deficits; Z56.0 Unemployment, unspecified
CPT/HCPCS: 36415; 80053; 80305; 80307; 85027; 86780; 87811; 93005; 93010

== ENCOUNTER 2023-09-23 12:35 | Inpatient (IN) | payer OTHER ==
[2023-09-23 13:02] VITALS: BMI 21.1
[2023-09-23] MEDS ORDERED: IBUPROFEN 600 MG TABLET (FP) PO PRN (15:12)
[2023-09-23] MEDS ORDERED: BENZOCAINE/MENTHOL (CHLORASEPTIC ) LOZENGE MM PRN (15:12)
[2023-09-23] MEDS ORDERED: POLYETHYLENE GLYCOL (HEALTHYLAX) 3350 17 GM PACKET PO PRN (15:12)
[2023-09-23] MEDS ORDERED: IBUPROFEN 400 MG TABLET (FP) PO PRN (15:12)
[2023-09-23] MEDS ORDERED: guaiFENesin 600 MG TABLET.ER (FP) PO PRN (15:12)
[2023-09-23] MEDS ORDERED: BENZONATATE 200 MG CAPSULE PO PRN (15:12)
[2023-09-23] MEDS ORDERED: LOPERAMIDE HCL 2 MG CAPSULE PO PRN (15:12)
[2023-09-23] MEDS ORDERED: MAG HYDROX/AL HYDROX/SIMETH 30 ML UNIT-DOSE CUP PO PRN (15:12)
[2023-09-23] MEDS: NICOTINE 14 MG/24 HOURS TOPICAL PATCH TD SCH (15:47)
[2023-09-23] MEDS: PRENATAL VITAMINS W/ FOLIC ACID TABLET (FP) PO SCH (16:12)
[2023-09-23] MEDS: THIAMINE 100 MG TABLET PO SCH (22:12)
[2023-09-23] MEDS: CELECOXIB 100 MG CAPSULE PO SCH (22:12)
[2023-09-23] MEDS: LIDOCAINE PATCH REMOVAL MC SCH (22:12)
[2023-09-23] MEDS: MELATONIN 5 MG TABLETS PO SCH (22:12)
[2023-09-23] MEDS: QUEtiapine FUMARATE 100 MG TABLET (FP) PO SCH (22:12)
[2023-09-23] MEDS: ACETAMINOPHEN 325 MG TABLET (FP) PO PRN (22:13)
[2023-09-23] MEDS: METHOCARBAMOL 500 MG TABLET PO PRN (22:15)
[2023-09-24] MEDS ORDERED: methaDONE HCL 10 MG TABLET PO SCH (08:00)
[2023-09-24] MEDS: amLODIPine BESYLATE 10 MG TABLET (FP) PO SCH (09:46)
[2023-09-24] MEDS: LOSARTAN POTASSIUM 50 MG TABLET PO SCH (09:46)
[2023-09-24] MEDS: LIDOCAINE 5% TOPICAL PATCH TP SCH (09:50)
[2023-09-24] MEDS: hydrOXYzine PAMOATE 25 MG CAPSULE (FP) PO PRN (22:48)
[2023-09-27] MEDS: DULoxetine HCL 20 MG CAPSULE.DR PO SCH (10:32)
[2023-09-27] MEDS: QUEtiapine FUMARATE 200 MG TABLET PO SCH (21:17)
[2023-09-29] MEDS: NICOTINE POLACRILEX 2 MG GUM BUC PRN (21:34)
[2023-09-30] MEDS: QUEtiapine FUMARATE 300 MG TABLET PO SCH (21:08)
[2023-09-30] MEDS: hydrOXYzine PAMOATE 50 MG CAPSULE (FP) PO PRN (21:10)
[2023-10-04] MEDS: SUVOREXANT 10 MG TABLET PO PRN (21:34)
[2023-10-05] MEDS: DULoxetine HCL 30 MG CAPSULE.DR PO SCH (10:25)
[2023-10-10] MEDS: AMOX TR/POT CLAV 500MG/125MG TABLETS (FP) PO SCH (17:27)
[2023-10-10] MEDS: BENZOCAINE 20 % GEL TUBE MM PRN (17:29)
[2023-10-11] MEDS: ACETAMINOPHEN 325 MG TABLET (FP) PO PRN (10:25)
[2023-10-11 10:40] LABS: INR 0.84 (0.83-1.09); PROTHROMBIN TIME (PATIENT) 9.5 SEC (9.7-13.0)
[2023-10-11] MEDS: SUVOREXANT 10 MG TABLET PO PRN (21:34)
[2023-10-12] MEDS: MAGNESIUM HYDROX 2400MG/30ML ORAL SUSPENSION 30 ML CUP PO PRN (10:13)
[2023-10-12] MEDS: LACTULOSE 20 GM/30 ML UDC (FOR ORAL USE ONLY) PO SCH (21:21)
[2023-10-12] MEDS: SUVOREXANT 10 MG TABLET PO PRN (21:21)
[2023-10-13] MEDS: BACLOFEN 10 MG TABLET (FP) PO SCH (21:28)
[2023-10-15] MEDS: SUVOREXANT 10 MG TABLET PO PRN (21:21)
[2023-10-16 07:01] VITALS: RESP 18
[2023-10-17] MEDS: SUVOREXANT 10 MG TABLET PO PRN (21:10)
[2023-10-18] MEDS: VITAMINS A AND D TOPICAL OINTMENT TP SCH (18:13)
[2023-10-19] MEDS: FERROUS SO4 325 MG TABLET (FP) PO SCH (10:12)
[2023-10-25 07:25] VITALS: BP 128/91; PULSE 88; TEMP 98
== END 2023-10-25 12:05 | disposition home or self-care (01) | DRG 772 ==
LOC: YASAS 12:35 → Y3NR 12:37 → Y5N 09-26 13:01
PROVIDERS: ADMIT Allergy & Immunology; ATTEND Psychiatry & Neurology Pain Medicine
PROC: HZ42ZZZ Group Counseling for Substance Abuse Treatment, Cognitive-Behavioral (ICD-10-PCS; principal; 2023-09-23)
DX: F11.20 Opioid dependence, uncomplicated (principal); F14.20 Cocaine dependence, uncomplicated; F10.20 Alcohol dependence, uncomplicated; F12.20 Cannabis dependence, uncomplicated; F17.210 Nicotine dependence, cigarettes, uncomplicated; F19.282 Other psychoactive substance dependence with psychoactive substance-induced sleep disorder; F19.280 Other psychoactive substance dependence with psychoactive substance-induced anxiety disorder; F19.24 Other psychoactive substance dependence with psychoactive substance-induced mood disorder; F41.9 Anxiety disorder, unspecified; E72.20 Disorder of urea cycle metabolism, unspecified; I10 Essential (primary) hypertension; L85.3 Xerosis cutis; M19.91 Primary osteoarthritis, unspecified site; M54.50 Low back pain, unspecified; G89.29 Other chronic pain; K02.9 Dental caries, unspecified; Z86.73 Personal history of transient ischemic attack (TIA), and cerebral infarction without residual deficits; Z88.2 Allergy status to sulfonamides
CPT/HCPCS: 36415; 82140; 82652; 83735; 85610; 86803; J0475